=== PATIENT | female | born 1950 | race Caucasian/White ===

== ENCOUNTER → 2016-08-12 | Outpatient (CLI) | payer MEDICARE, OTHER ==
--- NOTE | 2016-08-12 09:00 | CT ---
EXAMINATION TYPE: CT abdomen pelvis wo con DATE OF EXAM: 08/12/2016 8:15 AM COMPARISON: Prior CT abdomen pelvis 23 March 2013 HISTORY: Lt sided pain near prior hernia site CT DLP: 870.4 mGycm Automated exposure control for dose reduction was used. TECHNIQUE: Helical acquisition of images from the lung bases through the pelvis. FINDINGS: Lack of intravenous contrast could compromise sensitivity LUNG BASES: No significant abnormality is appreciated. Coronary artery calcifications are present. AORTA: Infrarenal abdominal aortic ectasia 3 cm as on prior. LIVER/GB: Gallbladder is absent, liver is stable PANCREAS: No significant abnormality is seen. SPLEEN: No significant abnormality is seen. ADRENALS: No significant abnormality is seen. KIDNEYS: No significant abnormality is seen. REPRODUCTIVE ORGANS: No significant abnormality is seen. URINARY BLADDER: No significant abnormality is seen. BOWEL: Postop change noted at the rectosigmoid area. There is extensive diverticular change in the s igmoid and descending colon. Rectus muscle on the right shows atrophy, fatty replacement. FREE AIR: No Free Air is visible. ASCITES: None visible. PELVIC ADENOPATHY: None visualized. RETROPERITONEAL ADENOPATHY: No Retroperitoneal Adenopathy visible. OSSEOUS STRUCTURES: Degenerative disc and facet arthropathy changes in the visualized spine. Postop changes noted to the anterior abdominal wall to the left of midline. Small area of recurrent h ernia laterally contains fat. IMPRESSION: POSTOP CHANGES. NONCONTRAST EXAM. SMALL AREA OF RECURRENT HERNIA IN THE LEFT LOWER QUADRANT. DIVERTIC ULOSIS. INFRARENAL ABDOMINAL AORTIC ECTASIA IS STABLE.
== END | disposition home or self-care (01) ==
LOC: RADCTMAIN 07:49
PROVIDERS: ATTEND Surgery Plastic and Reconstructive Surgery
DX: K57.30 Diverticulosis of large intestine without perforation or abscess without bleeding (principal); I77.811 Abdominal aortic ectasia; K40.31 Unilateral inguinal hernia, with obstruction, without gangrene, recurrent; Z98.890 Other specified postprocedural states
CPT/HCPCS: 74176

== ENCOUNTER 2016-09-18 07:56 | Day surgery (SDC) | payer MEDICARE, OTHER ==
[2016-09-16 10:53] VITALS: BMI 33.3
[~2016-09-18 07:56] MED LIST: LACTATED RINGERS 1,000 ML IV SCH; LIDOCAINE 1% 20 ML VIAL (10MG/ML) FOR IV START INTRADERMA PRN
--- NOTE | 2016-09-18 08:01 | P.GSHP ---
History of Present Illness H&P Date: 09/18/16 CHIEF COMPLAINT: Colon screen HISTORY OF PRESENT ILLNESS: The patient is a 66-year-old female who presents for colon screen. Lower endoscopy was offered for further evaluation and management. PAST MEDICAL HISTORY: Please see list. PAST SURGICAL HISTORY: Please see list. MEDICATIONS: Please see list. ALLERGIES: Please see list. SOCIAL HISTORY: No illicit drug use FAMILY HISTORY: No reports of Crohn disease or ulcerative colitis. REVIEW OF ORGAN SYSTEMS: CONSTITUTIONAL: No reports of fevers or chills. PHYSICAL EXAM: VITAL SIGNS: Stable GENERAL: Well-developed pleasant in no acute distress. HEENT: No scleral icterus. Extraocular movements grossly intact. Moist buccal mucosa. NECK: Supple without lymphadenopathy. CHEST: Unlabored respirations. Equal bilateral excursions. CARDIOVASCULAR: Regular rate and rhythm. Distal 2+ pulses. ABDOMEN: Soft, nontender, nondistended. MUSCULOSKELETAL: No clubbing, cyanosis, or edema. ASSESSMENT: 1. Colon screen. PLAN: 1. Recommend proceeding with a lower endoscopy Past Medical History Past Medical History: Atrial Fibrillation, COPD, Hyperlipidemia, Thyroid Disorder Additional Past Medical History / Comment(s): tachycardia, HX diverticulitis, History of Any Multi-Drug Resistant Organisms: None Reported Past Surgical History: Adenoidectomy, Bowel Resection, Cholecystectomy, Hernia Repair, Tonsillectomy, Tubal Ligation Additional Past Surgical History / Comment(s): colonoscopy, BILAT CATARACTS Past Anesthesia/Blood Transfusion Reactions: No Reported Reaction Past Psychological History: No Psychological Hx Reported Smoking Status: Current some day smoker Past Alcohol Use History: None Reported Additional Past Alcohol Use History / Comment(s): QUIT SMOKING1 PPD regularly , still occ has a cigarette-ABOUT 1 PACK PER WEEK. Has smoked SINCE 1975 Past Drug Use History: None Reported - Past Family History Sister(s) Family Medical History: Pulmonary Embolus Medications and Allergies Home Medications Medication Instructions Recorded Confirmed Type Atorvastatin [Lipitor] 20 mg PO HS 03/09/14 09/16/16 History Furosemide [Lasix] 20 mg PO DAILY 03/09/14 09/16/16 History Methimazole [Tapazole] 5 mg PO DAILY 03/09/14 09/16/16 History Albuterol Nebulized [Ventolin 2.5 mg INHALATION DAILY PRN 03/15/16 09/16/16 History Nebulized] Rivaroxaban [Xarelto] 15 mg PO DAILY 03/15/16 09/16/16 History Metoprolol Tartrate [Lopressor] 37.5 mg PO BID 09/16/16 09/16/16 History Tiotropium [place] [Spiriva] 1 cap INHALATION DAILY 09/16/16 09/16/16 History Allergies Allergy/AdvReac Type Severity Reaction Status Date / Time No Known Allergies Allergy Verified 09/16/16 10:45
[2016-09-18 08:17] VITALS: RESP 16; TEMP 97.3
[2016-09-18] MEDS ORDERED: PROPOFOL 10 MG/ML 20 ML VIAL IV ONE (08:26)
[2016-09-18 09:22] VITALS: BP 100/73; PULSE 95
--- NOTE | 2016-10-07 08:43 | P.PCN ---
Date of Procedure: 09/18/16 Preoperative Diagnosis: Postoperative Diagnosis: Procedure(s) Performed: Implants: Indications for Procedure: Operative Findings: Description of Procedure: PREOPERATIVE DIAGNOSIS: Colonoscopy screening. Personal history of colon polyps, high-risk adenomas. POSTOPERATIVE DIAGNOSIS: Colonoscopy screening. Personal history of colon polyps, high-risk adenomas. Multiple tubular adenomas throughout the colon. Scattered diverticulosis. OPERATION: Colonoscopy to the ileocecal valve and appendiceal orifice. Colonoscopy with multiple hot forceps biopsies. Colonoscopy with cold biopsy forceps. SURGEON: Katia Conley MD. ANESTHESIA: MAC. INDICATIONS: The patient is a 66-year-old female who presents for colonoscopy surveillance following resection of high risk adenoma. Her last colonoscopy was approximately 2-3 years ago. Benefits and risks were described and informed consent was obtained. DESCRIPTION OF PROCEDURE: The patient had undergone Gatorade, MiraLAX and Dulcolax prep. She had been brought into the operating room and laid in the left lateral decubitus position. After adequate intravenous sedation, the rectum was examined with 2% lidocaine jelly. External hemorrhoids were encountered. The rectal tone was within normal limits. No lesions were palpated in the rectal vault. An Olympus colonoscope was advanced until the ileocecal valve and appendiceal orifice were clearly viewed. The prep was fair with visualization of the mucosal folds. The scope was removed with visualization of each mucosal fold. Scattered diverticulosis was encountered. Multiple colonic polyps were found and removed wit hot or cold biopsy forceps. No evidence of focal colitis was found. Retroflexion of the scope demonstrated grade 1 internal hemorrhoids without active bleeding or inflammation. The colon was desufflated. The patient had tolerated the procedure well. Withdrawal time was over 6 minutes. FINDINGS: Internal hemorrhoids, grade 1 External hemorrhoids, grade 2. No arteriovenous malformations. Removal of 5 polyps from the ileocecal valve and descending colon: - Cold forceps biopsy at ileocecal valve, 3 mm flat polyp, tubal adenoma. - Hot forceps biopsy x 2 at 40 cm from the anal verge, 4 mm and 3 mm polyps, tubular adenoma. - Hot forceps biopsy at 50 cm from the anal verge, 4 mm polyp, tubular adenoma No focal colitis. RECOMMENDATIONS: Given severity of tubular adenomas, recommend repeat colonoscopy 1 year. Plan - Discharge Summary New Discharge Prescriptions: No Action Furosemide [Lasix] 20 mg PO DAILY Atorvastatin [Lipitor] 20 mg PO HS Methimazole [Tapazole] 5 mg PO DAILY Rivaroxaban [Xarelto] 15 mg PO DAILY Albuterol Nebulized [Ventolin Nebulized] 2.5 mg INHALATION DAILY PRN PRN Reason: sob Tiotropium D[place] [Spiriva] 1 cap INHALATION DAILY Metoprolol Tartrate [Lopressor] 37.5 mg PO BID Discharge Medication List Atorvastatin [Lipitor] 20 mg PO HS 03/09/14 [History] Furosemide [Lasix] 20 mg PO DAILY 03/09/14 [History] Methimazole [Tapazole] 5 mg PO DAILY 03/09/14 [History] Albuterol Nebulized [Ventolin Nebulized] 2.5 mg INHALATION DAILY PRN 03/15/16 [ History] Rivaroxaban [Xarelto] 15 mg PO DAILY 03/15/16 [History] Metoprolol Tartrate [Lopressor] 37.5 mg PO BID 09/16/16 [History] Tiotropium D[place] [Spiriva] 1 cap INHALATION DAILY 09/16/16 [History] Follow up Appointment(s)/Referral(s): Katia Conley MD [STAFF PHYSICIAN] - 10/15/16 3:40 pm Patient Instructions/Handouts: *[facility] - (Anesthesia) Endoscopy Discharge Instructions, Colonoscopy (GEN), Diverticulosis (GEN), Colorectal Polyps (GEN), Diverticulosis Diet (GEN) Activity/Diet/Wound Care/Special Instructions: May start xarelto on 09/20/16. Do not start Xarelto if you see blood in your stools. Stop Xarelto if you see blood in your stools. Discharge Disposition: HOME SELF-CARE
== END 2016-09-18 09:54 | disposition home or self-care (01) ==
LOC: ORWHC2ENDO 07:56
PROVIDERS: ATTEND Surgery Plastic and Reconstructive Surgery
DX: Z12.11 Encounter for screening for malignant neoplasm of colon (principal); D12.0 Benign neoplasm of cecum; D12.2 Benign neoplasm of ascending colon; Z86.010 Personal history of colon polyps; K57.30 Diverticulosis of large intestine without perforation or abscess without bleeding; K64.1 Second degree hemorrhoids; K64.0 First degree hemorrhoids; I10 Essential (primary) hypertension; E78.5 Hyperlipidemia, unspecified; I48.91 Unspecified atrial fibrillation; F17.210 Nicotine dependence, cigarettes, uncomplicated; J44.9 Chronic obstructive pulmonary disease, unspecified; E07.9 Disorder of thyroid, unspecified; Z79.01 Long term (current) use of anticoagulants; Z79.899 Other long term (current) drug therapy
CPT/HCPCS: 88305; 45380; 45384; J2704

== ENCOUNTER → 2017-01-27 | Outpatient (CLI) | payer MEDICARE, OTHER ==
--- NOTE | 2017-01-28 09:02 | MM ---
Reason for exam: screening (asymptomatic). History: Patient is postmenopausal. Physical Findings: A clinical breast exam by your physician is recommended on an annual basis and results should be correlated with mammographic findings. MG 3D Screening Mammo W/Cad Bilateral CC and MLO view(s) were taken. The breast tissue is almost entirely fat. There are positive dermal calcifications. There is no discrete abnormality. No significant changes when compared with prior studies. ASSESSMENT: Benign, BI-RAD 2 RECOMMENDATION: Routine screening mammogram of both breasts in 1 year.
== END | disposition home or self-care (01) ==
LOC: RADMAMWWP 01-01 16:25
PROVIDERS: ATTEND Family Medicine
DX: Z12.31 Encounter for screening mammogram for malignant neoplasm of breast (principal)
CPT/HCPCS: 77063; G0202

== ENCOUNTER → 2017-11-10 | Outpatient (CLI) | payer MEDICARE, OTHER ==
[2017-11-10 15:30] LABS: HCT 36.8 % (34.0-46.0); MCH 29.8 pg (25.0-35.0); MCHC 32.5 g/dL (31.0-37.0); MCV 91.7 fL (80.0-100.0); Mean Platelet Volume 7.6; Platelet Count 225 k/uL (150-450); Poikilocytosis Slight; RBC 4.01 m/uL (3.80-5.40); RDW 15.8 % (11.5-15.5); WBC 5.8 k/uL (3.8-10.6)
== END | disposition home or self-care (01) ==
LOC: LABWHC1 14:45
PROVIDERS: ATTEND Internal Medicine Interventional Cardiology
DX: Z01.812 Encounter for preprocedural laboratory examination (principal); I42.9 Cardiomyopathy, unspecified; I48.91 Unspecified atrial fibrillation
CPT/HCPCS: 36415; 85027

== ENCOUNTER 2017-11-18 06:26 | Day surgery (SDC) | payer MEDICARE, OTHER ==
[2017-11-10 13:43] VITALS: BMI 33.4
[2017-11-18] MEDS ORDERED: NITROGLYCERIN SL TABS 0.4 MG TAB SUBLINGUAL PRN (06:34)
[2017-11-18] MEDS ORDERED: ALPRAZolam 0.5 MG TAB PO PRN (06:34)
[2017-11-18] MEDS ORDERED: ASPIRIN 325 MG TAB PO STA (06:34)
[2017-11-18] MEDS ORDERED: SODIUM CHLORIDE 0.9% 1,000 ML in EMPTY BAG 1 BAG IV ONE (06:34)
[2017-11-18] MEDS ORDERED: ALPRAZolam 0.25 MG TAB PO PRN (06:34)
[2017-11-18] MEDS ORDERED: ATORVASTATIN 80 MG TAB PO STA (06:34)
[2017-11-18 07:04] VITALS: TEMP 98.1
[2017-11-18] MEDS ORDERED: VERAPAMIL 2.5 MG/ML 2 ML AMP ONE (07:10)
[2017-11-18] MEDS ORDERED: MIDAZOLAM 2 MG/2 ML VIAL ONE (07:10)
[2017-11-18 07:28] LABS: Calcium 9.1 mg/dL (8.4-10.2)
[2017-11-18 07:36] LABS: Potassium 4.6 mmol/L (3.5-5.1)
[2017-11-18] MEDS ORDERED: MIDAZOLAM 2 MG/2 ML VIAL IV ONE (07:49)
[2017-11-18] MEDS: VERAPAMIL SYRINGE (5 MG/10 ML) INTRAARTER ONE ×2 (07:52→08:06)
[2017-11-18] MEDS ORDERED: HEPARIN SODIUM 1,000 UN/ML (10ML VL) ONE (07:53)
[2017-11-18] MEDS ORDERED: HEPARIN SODIUM 1,000 UN/ML (10ML VL) IV ONE (07:55)
[2017-11-18] MEDS ORDERED: IOPAMIDOL-370 125ML BTL INJ ONE (08:06)
[2017-11-18] MEDS ORDERED: RX INFO: IV CONTRAST WAS GIVEN 1 EACH MISC MISCELLANE PRN (08:11)
[2017-11-18] MEDS ORDERED: SODIUM CHLORIDE 0.9% 1,000 ML IV SCH (08:15)
--- NOTE | 2017-11-18 08:37 | LTR ---
November 18, 2017 Re: Kirsten Hansen Dear Alexys: Ms. Amanda Hansen was not feeling well lately. She was feeling tired and fatigued. An echocardiogram was performed and showed cardiomyopathy, which is new to her. Because of that, a heart catheterization was recommended. I did perform a heart catheterization on her and that showed only mild to moderate nonobstructive coronary artery disease. Maximized medical treatment is recommended at this point of time. I want to thank you for allowing me to participate in her care and please do not hesitate to call if you have any question or concern. Sincerely, MD SARAH Elias / EDDIE: [id number] /
--- NOTE | 2017-11-18 08:37 | CC ---
CARDIAC CATHETERIZATION REPORT DATE OF SERVICE: 11/18/2017 PERFORMING PHYSICIAN: Robert Dominguez MD. PROCEDURE PERFORMED: 1. Selective right and left coronary angiogram. 2. Left heart catheterization. INDICATION: This is a pleasant 67-year-old female patient who was diagnosed recently with cardiomyopathy. She does have history of chronic atrial fibrillation on oral anticoagulation. The previous echocardiogram showed normal LV function. A recent echocardiogram was performed after she was feeling tired and fatigued showed cardiomyopathy. The heart catheterization is to rule out any severe underlying coronary artery disease. APPROACH: Right radial artery. COMPLICATION: None. LEVEL OF SEDATION: Moderate, sedation length of 18 minutes. PROCEDURE DESCRIPTION: After obtaining an informed consent, the patient was brought to cardiac agriculture laborer. The right radial artery was cannulated using micropuncture technique, the micropuncture wire passed easily then I placed a 6-Swazi sheath in the right radial artery. Subsequently I gave the patient 2 mg of verapamil IA and 8000 units of heparin IV. I did selective right and left coronary angiogram using JR4 and JL3.5 catheters. Left heart catheterization was performed using 5-Swazi pigtail catheter. The procedure was completed without any complication. SELECTIVE CORONARY ANGIOGRAM: 1. The RCA is a large caliber vessel. It is a dominant vessel. It is angiographically normal. It distally bifurcates into PDA and PLV branches. They are angiographically normal. 2. The left main is angiographically normal. It bifurcates into the left circumflex and left anterior descending artery. 3. The left circumflex is a large caliber vessel. It is a nondominant vessel and it is angiographically normal. 4. The LAD: The proximal LAD has a lesion appeared to be in the range of 40% by the bifurcation of a medium-sized diagonal branch. The mid and distal LAD are angiographically normal. HEMODYNAMICS: The left ventricular end-diastolic pressure was 16 mmHg and no gradient was identified across the aortic valve. CONCLUSION: 1. Mild to moderate disease involving the proximal left anterior descending artery with a lesion appeared to be in the range of 40%. 2. Normal left ventricular end-diastolic pressure. 3. Nonischemic cardiomyopathy. POSTPROCEDURE MANAGEMENT: 1. Maximize medical treatment. 2. Follow up with the patient. MMODL / IJN: [id number] /
[2017-11-18 08:43] VITALS: RESP 16
[2017-11-18 15:20] VITALS: BP 105/72; PULSE 101
== END 2017-11-18 13:20 | disposition home or self-care (01) ==
LOC: CATHCVL 06:26
PROVIDERS: ATTEND Internal Medicine Interventional Cardiology
DX: I48.1 Persistent atrial fibrillation (principal); E78.5 Hyperlipidemia, unspecified; E78.00 Pure hypercholesterolemia, unspecified; I10 Essential (primary) hypertension; F17.210 Nicotine dependence, cigarettes, uncomplicated; I48.2 Chronic atrial fibrillation; I42.9 Cardiomyopathy, unspecified; Z79.01 Long term (current) use of anticoagulants; Z79.899 Other long term (current) drug therapy
CPT/HCPCS: 80048; 93456; J2250; J1644; Q9967; 93452

== ENCOUNTER → 2018-01-20 | Outpatient (CLI) | payer MEDICARE, OTHER ==
--- NOTE | 2018-01-20 15:55 | CONS ---
CONSULTATION REASON FOR CONSULTATION: Atrial fibrillation; possible OPAL. This is a 67-year-old female patient who has been having difficulties with atrial fibrillation that has been resistant to treatment. The patient has already received 4 cardioversions. She initially converts to sinus rhythm and subsequently her rhythm goes back to atrial fibrillation. She is under treatment for now, and as part of further investigation a sleep apnea evaluation was requested by her tong carrier. The patient lives alone. She does not know whether she snores or quits breathing; however, her sleep is fragmented. She goes to bed around 1 a.m. and she wakes up at 8:30 a.m. in the morning. She is drowsy and sleepy during the day and the patient takes several naps. Her weight has been stable and there has been no significant weight gain over the past 10 years. In fact, the patient has lost approximately 10 pounds. No episodes of waking up choking and gasping for air. She has occasional nocturia. She wakes up with an extremely dry mouth. She has also occasional daytime palpitations. No history of alcoholism. The patient smokes cigarettes. She sleeps on her side. PAST MEDICAL HISTORY: 1. COPD. 2. Chronic atrial fibrillation. 3. Hyperlipidemia. PAST SURGICAL HISTORY: 1. Tubal ligation. 2. Cholecystectomy. 3. Cataract surgery. 4. Tonsillectomy. DRUG ALLERGIES: NOT KNOWN. OUTPATIENT MEDICATION LIST: Outpatient medication list includes: 1. Spiriva. 2. Lisinopril. 3. Aldactone. 4. Lasix. 5. Metoprolol. 6. Xarelto. 7. Lipitor. 8. Albuterol HFA. SOCIAL HISTORY: The patient is a smoker, half pack of cigarettes per day. No history of alcoholism. No history of IV drugs. FAMILY HISTORY: Negative for sleep apnea. REVIEW OF SYSTEMS: Twelve-point review of systems was done. No history of any chest pain. No heartburn at nighttime. No restlessness in the lower extremities. No grinding of the teeth. No depression. No difficulties with concentration or memory. No sleep paralysis or cataplexy. No hallucinations. No nightmares. No other parasomnias noted. PHYSICAL EXAMINATION: BP is 91/61, pulse 109, irregular, respirations 18, temperature 97.2, saturation 97% on room air. Dillon score is 7. Height is 5 feet 3 inches, weight 195, BMI 34. Neck size is 15 inches. GENERAL APPEARANCE: Calm, comfortable. Head is atraumatic, normocephalic. NECK: Supple. Mallampati class IV. No goiter or neck masses. LUNGS: Diminished breath sounds; otherwise clear. HEART: Heart sounds are irregular. Positive S1, S2. No S3, S4. No murmurs. ABDOMEN: Soft, nontender. No organomegaly. EXTREMITIES: No edema. No cyanosis or clubbing. SKIN: Negative for any wounds or ulcerations. PSYCH: Negative for any anxiety or depression. IMPRESSION: 1. Chronic atrial fibrillation. 2. Sleep fragmentation with some degree of increased sleepiness with an Dillon score of 7. Rule out underlying obstructive sleep apnea. 3. Chronic obstructive pulmonary disease. 4. Hyperlipidemia. PLAN: This patient has chronic atrial fibrillation, and as part of further investigation a sleep apnea evaluation was requested by her tong carrier. Sleep apnea may be potentially considered a risk factor for recurrent atrial fibrillation. This patient is also being considered for cardiac ablation for atrial fibrillation, and there is data to support that sleep apnea treatment would decrease the recurrence of atrial fibrillation in patients post cardiac ablation. For all these reasons, we will proceed with a screening polysomnogram to see if there is any significant sleep breathing disorder contributing to her cardiac arrhythmias. Encourage weight loss. Implement good sleep hygiene measures. Will follow. NIVIAL / GUILLERMINAN: [id number] /
== END ==
LOC: SLEEP 14:19
PROVIDERS: ATTEND Internal Medicine Critical Care Medicine
DX: I48.91 Unspecified atrial fibrillation (principal); J44.9 Chronic obstructive pulmonary disease, unspecified; E78.5 Hyperlipidemia, unspecified; F17.210 Nicotine dependence, cigarettes, uncomplicated; Z79.899 Other long term (current) drug therapy; Z90.49 Acquired absence of other specified parts of digestive tract; Z98.890 Other specified postprocedural states; Z90.89 Acquired absence of other organs
CPT/HCPCS: 99211

== ENCOUNTER 2018-04-07 08:05 | Inpatient (IN) | payer MEDICARE, OTHER ==
[2018-04-07 09:23] VITALS: BMI 31.5
[2018-04-07] MEDS ORDERED: NALOXONE 0.4 MG/ML 1 ML VIAL IV PRN (09:24)
[2018-04-07 10:24] LABS: Basophils # (A) 0.1 k/uL (0-0.2); Basophils % (A) 1 %; Eosinophils # (A) 0.2 k/uL (0-0.7); Eosinophils % (A) 3 %; HCT 35.1 % (34.0-46.0); HGB 11.8 gm/dL (11.4-16.0); Lymphocytes # (A) 1.6 k/uL (1.0-4.8); Lymphocytes % (A) 21 %; MCH 31.9 pg (25.0-35.0); MCHC 33.6 g/dL (31.0-37.0); MCV 94.8 fL (80.0-100.0); Mean Platelet Volume 7.5; Monocytes # (A) 0.4 k/uL (0-1.0); Monocytes % (A) 5 %; Neutrophils # (A) 5.2 k/uL (1.3-7.7); Neutrophils % (A) 69 %; Platelet Count 233 k/uL (150-450); Poikilocytosis Slight; RDW 15.1 % (11.5-15.5); WBC 7.4 k/uL (3.8-10.6)
[2018-04-07] MEDS ORDERED: IPRATROPIUM 0.5 MG/2.5 ML NEBU INHALATION PRN (10:42)
[2018-04-07] MEDS ORDERED: ALBUTEROL NEBULIZED 2.5 MG/3 ML INHALATION PRN (10:42)
[2018-04-07] MEDS ORDERED: Magnesium Replacement Protocol 1 EACH MISC MISCELLANE PRN (10:55)
[2018-04-07 11:13] LABS: Calcium 9.3 mg/dL (8.4-10.2); Phosphorus 3.5 mg/dL (2.5-4.5); Potassium 4.4 mmol/L (3.5-5.1)
[2018-04-07] MEDS: MAGNESIUM OXIDE 400 MG TAB PO SCH (14:54)
[2018-04-07 15:48] LABS: T4, Free (Free Thyroxine) 1.44 ng/dL (0.78-2.19)
[2018-04-07] MEDS: IPRATROPIUM-ALBUTEROL 3 ML NEB INHALATION SCH ×2 (16:06→19:38)
[2018-04-07] MEDS ORDERED: DOFETILIDE 250 MCG CAP PO ONE (18:00)
[2018-04-07] MEDS ORDERED: DOFETILIDE 125 MCG CAP PO ONE (18:00)
[2018-04-07] MEDS ORDERED: METOPROLOL TARTRATE 50 MG TAB PO SCH ×2 (21:00)
[2018-04-07] MEDS: ATORVASTATIN 20 MG TAB PO SCH (22:32)
[2018-04-08] MEDS: IPRATROPIUM-ALBUTEROL 3 ML NEB INHALATION PRN (04:50)
[2018-04-08 05:28] LABS: Calcium 8.6 mg/dL (8.4-10.2); Potassium 4.1 mmol/L (3.5-5.1)
[2018-04-08] MEDS ORDERED: DOFETILIDE 125 MCG CAP PO ONE ×2 (06:00→18:00)
[2018-04-08] MEDS: MAGNESIUM OXIDE 400 MG TAB PO SCH (08:41)
[2018-04-08] MEDS: FUROSEMIDE 20 MG TAB PO SCH (08:44)
[2018-04-08] MEDS: SPIRONOLACTONE 25 MG TAB PO SCH (08:44)
[2018-04-08] MEDS: IPRATROPIUM-ALBUTEROL 3 ML NEB INHALATION SCH ×4 (08:44→20:08)
[2018-04-08] MEDS: RIVAROXABAN 20 MG TAB PO SCH (08:55)
[2018-04-08] MEDS: METOPROLOL TARTRATE 25 MG TAB PO SCH ×2 (08:55→21:32)
[2018-04-08] MEDS ORDERED: NON-FORMULARY DRUG (Tiotropium Bromide [Spiriva] 1 CAP) INHALATION SCH (09:00)
[2018-04-08] MEDS ORDERED: LISINOPRIL 2.5 MG TAB PO SCH ×2 (09:00→17:00)
--- NOTE | 2018-04-08 09:16 | P.PN ---
Subjective Patient remains sinus rhythm in the 50s. Her breath sounds are improved today she no rhonchi no crackles. Denies any chest discomfort no atrial fibrillation did so far she is tolerating dofetilide on 125 g we calculated her creatinine clearance and it ranges between 30 and 40 therefore we started her on dofetilide 125 g QT intervals have been stable and being less than 480 ms without any increase from baseline Blood pressure 84/40 mmHg pulse rate in the 50s afebrile Breath sounds are clear no rhonchi no crackles Heart sounds S1-S2 normal no murmurs or gallops or rub Extended is warm no edema Impression In view of low blood pressure I will stop lisinopril The dose of metoprolol reduced to 25 mg twice daily Dofetilide will continue We will proceed with A. fib ablation/cryoablation of the pulmonary veins as previously scheduled, for tomorrow She is nothing by mouth after midnight except by mouth medications Objective - Vital Signs Vital signs: Vital Signs Temp 98.1 F 04/08/18 08:00 Pulse 59 L 04/08/18 08:54 Resp 18 04/08/18 08:00 BP 94/40 04/08/18 08:00 Pulse Ox 95 04/08/18 08:00 Intake & Output 04/07/18 04/08/18 04/08/18 18:59 06:59 18:59 Intake Total 225 Output Total 160 Balance -160 225 Weight 86 kg 86 kg Intake: Oral 225 Output: Urine 160 Other: Voiding Method Toilet Toilet # Voids 2 2 - Labs CBC & Chem 7: 04/07/18 10:10 04/08/18 05:00 Labs: Abnormal Lab Results - Last 24 Hours (Table) 04/07/18 04/07/18 04/07/18 Range/Units 10:10 10:10 10:10 RBC 3.70 L (3.80-5.40) m/uL Chloride (98-107) mmol/L BUN 30 H (7-17) mg/dL Creatinine 1.51 H (0.52-1.04) mg/dL TSH 0.365 L (0.465-4.680) mIU/L 04/08/18 Range/Units 05:00 RBC (3.80-5.40) m/uL Chloride 109 H (98-107) mmol/L BUN 23 H (7-17) mg/dL Creatinine 1.21 H (0.52-1.04) mg/dL TSH (0.465-4.680) mIU/L
[2018-04-08 11:21] LABS: Hemoglobin A1C 4.5 % (4.0-6.0)
[2018-04-08 21:09] LABS: Glucose,Whole Blood 94 mg/dL (75-99)
[2018-04-08] MEDS: SODIUM CHLORIDE 0.9% 1,000 ML IV SCH (21:31)
[2018-04-08] MEDS: ATORVASTATIN 20 MG TAB PO SCH (21:32)
[2018-04-09] MEDS: IPRATROPIUM-ALBUTEROL 3 ML NEB INHALATION PRN (04:29)
[2018-04-09] MEDS ORDERED: DEXAMETHASONE SOD PHOSPHATE 10 MG/ML 1 ML VIAL IV ONE (05:00)
[2018-04-09] MEDS ORDERED: LIDOCAINE 1% 20 ML VIAL (10MG/ML) FOR IV START INTRADERMA PRN (05:00)
[2018-04-09] MEDS ORDERED: LACTATED RINGERS 1,000 ML IV SCH (05:00)
[2018-04-09] MEDS ORDERED: ONDANSETRON 4 MG/2 ML VIAL IVP ONE (05:00)
[2018-04-09] MEDS ORDERED: DOFETILIDE 125 MCG CAP PO ONE (06:00)
[2018-04-09 06:29] LABS: Magnesium 2.1 mg/dL (1.6-2.3); Potassium 4.2 mmol/L (3.5-5.1)
[2018-04-09] MEDS: RIVAROXABAN 20 MG TAB PO SCH (08:55)
[2018-04-09] MEDS: SPIRONOLACTONE 25 MG TAB PO SCH (08:55)
[2018-04-09] MEDS: FUROSEMIDE 20 MG TAB PO SCH (08:55)
[2018-04-09] MEDS: MAGNESIUM OXIDE 400 MG TAB PO SCH (08:55)
[2018-04-09] MEDS: METOPROLOL TARTRATE 25 MG TAB PO SCH ×2 (08:55→19:45)
[2018-04-09] MEDS: SODIUM CHLORIDE 0.9% 1,000 ML IV SCH (08:58)
[2018-04-09] MEDS: IPRATROPIUM-ALBUTEROL 3 ML NEB INHALATION SCH ×4 (09:40→19:10)
[2018-04-09] MEDS ORDERED: PROTAMINE SULFATE 10 MG/ML 5 ML VIAL IV ONE ×2 (12:21→15:18)
[2018-04-09] MEDS ORDERED: PROPOFOL 10 MG/ML 20 ML VIAL IV ONE (12:21)
[2018-04-09] MEDS ORDERED: ROCURONIUM BROMIDE 10 MG/ML 10 ML VIAL IV ONE (12:21)
[2018-04-09] MEDS ORDERED: fentaNYL (PF) 50 MCG/ML 2 ML AMP ONE (12:21)
[2018-04-09] MEDS ORDERED: ISOPROTERENOL 250 MCG/1.25 ML SYR IV ONE (12:21)
[2018-04-09] MEDS ORDERED: LIDOCAINE 1% INJ 10MG/ML (20 ML MDV) ONE (12:21)
[2018-04-09] MEDS ORDERED: MIDAZOLAM 2 MG/2 ML VIAL ONE (12:21)
[2018-04-09] MEDS ORDERED: HEPARIN SODIUM,PORCINE 5,000 UNIT/ML 1 ML VIAL ONE (12:21)
[2018-04-09] MEDS ORDERED: SODIUM CHLORIDE 0.9% 1,000 ML IV ONE (13:13)
[2018-04-09] MEDS ORDERED: LIDOCAINE 1% INJ 10MG/ML (20 ML MDV) SQ ONE (13:13)
[2018-04-09] MEDS ORDERED: HEPARIN SOD,PORK IN 0.45% NACL 25,000 UNIT in 0.45% NACL 1 250ML.BAG IV ONE ×2 (13:13)
[2018-04-09] MEDS ORDERED: HYDROcodone/APAP 5-325MG 1 EACH TAB PO PRN (15:19)
[2018-04-09] MEDS ORDERED: ACETAMINOPHEN TAB 325 MG TAB PO PRN (15:19)
[2018-04-09] MEDS ORDERED: IOPAMIDOL-370 100ML BTL INJ ONE (15:26)
--- NOTE | 2018-04-09 16:13 | P.HPCAR ---
History of Present Illness This is Dr. Crowell dictating an H/P on this patient The patient was interviewed and examined by me IMPRESSION / ASSESSMENT: Persistent atrial fibrillation Creatinine 1.59 potassium Suppressed TSH PLAN: Initiate dofetilide 125 g twice daily, oral magnesium, spironolactone, continue Rivaroxaban HPI Patient was admitted for evaluation and management of atrial fibrillation We will be starting dofetilide today and we'll proceed with PVI on ROS: No fever chills or rigors, no cough, phlegm or expectoration, no nausea, vomiting or diarrhea, no hematuria, dysuria, no musculoskeletal complaints, no strokes or seizures, no skin lesions. EXAMINATION: On examination blood pressure is 102/45 mmHg normal respirations Pulse rate in the 60s afebrile Breath sounds are reduced bilaterally with bilateral rhonchi the patient appears comfortable Heart sounds S1 and S2 normal no murmurs or gallop. Extended is warm no edema REVIEW OF LABS, ECG & MEDICAL DATA White count 7.4, hemoglobin 11.8, sodium 139 potassium 4.4 BUN 30 creatinine 1.5 TSH 0.365, suppressed The ECG shows sinus rhythm narrow QRS the stent QT interval of 4 460 ms Physical Exam Vitals: Vital Signs Temp Pulse Pulse Resp BP BP Pulse Ox 04/07/18 14:00 57 L 04/07/18 13:36 60 04/07/18 13:30 56 L 04/07/18 12:01 97.9 F 63 16 102/45 97 04/07/18 10:00 51 L 04/07/18 09:24 97 04/07/18 08:59 50 L 04/07/18 08:49 98 F 50 L 18 85/45 95 Intake and Output 04/07/18 04/07/18 04/07/18 06:59 14:59 22:59 Output Total 160 Balance -160 Output: Urine 160 Other: Weight 86 kg Past Medical History Past Medical History: Atrial Fibrillation, COPD, Hyperlipidemia, Thyroid Disorder Additional Past Medical History / Comment(s): tachycardia, HX diverticulitis, History of Any Multi-Drug Resistant Organisms: None Reported Past Surgical History: Adenoidectomy, Bowel Resection, Cholecystectomy, Hernia Repair, Tonsillectomy, Tubal Ligation Additional Past Surgical History / Comment(s): colonoscopy, BILAT CATARACTS Past Anesthesia/Blood Transfusion Reactions: No Reported Reaction Past Psychological History: No Psychological Hx Reported Smoking Status: Current every day smoker Past Alcohol Use History: None Reported Additional Past Alcohol Use History / Comment(s): QUIT SMOKING1 PPD regularly , still occ has a cigarette-ABOUT 1 PACK PER WEEK. Has smoked SINCE 1975 Past Drug Use History: None Reported - Past Family History Sister(s) Family Medical History: Pulmonary Embolus Physical Examination Vital Signs Temp Pulse Pulse Resp BP BP Pulse Ox 04/07/18 14:00 57 L 04/07/18 13:36 60 04/07/18 13:30 56 L 04/07/18 12:01 97.9 F 63 16 102/45 97 04/07/18 10:00 51 L 04/07/18 09:24 97 04/07/18 08:59 50 L 04/07/18 08:49 98 F 50 L 18 85/45 95 Intake and Output 04/07/18 04/07/18 04/07/18 06:59 14:59 22:59 Output Total 160 Balance -160 Output: Urine 160 Other: Weight 86 kg Results 04/07/18 10:10 04/09/18 05:41 CBC 04/07/18 Range/Units 10:10 WBC 7.4 (3.8-10.6) k/uL RBC 3.70 L (3.80-5.40) m/uL Hgb 11.8 (11.4-16.0) gm/dL Hct 35.1 (34.0-46.0) % Plt Count 233 (150-450) k/uL Comprehensive Metabolic Panel 04/07/18 Range/Units 10:10 Sodium 139 (137-145) mmol/L Potassium 4.4 (3.5-5.1) mmol/L Chloride 106 (98-107) mmol/L Carbon Dioxide 25 (22-30) mmol/L BUN 30 H (7-17) mg/dL Creatinine 1.51 H (0.52-1.04) mg/dL Glucose 93 (74-99) mg/dL Calcium 9.3 (8.4-10.2) mg/dL Current Medications Generic Name Dose Route Start Last Admin Trade Name Freq PRN Reason Stop Dose Admin Albuterol/Ipratropium 3 ml 04/07/18 16:00 Duoneb 0.5 Mg-3 Mg/3 Ml Soln INHALATION RT-QID JESSICA Albuterol/Ipratropium 3 ml 04/07/18 13:34 Duoneb 0.5 Mg-3 Mg/3 Ml Soln INHALATION RT-Q2H PRN Shortness Of Breath Or Wheezing Atorvastatin Calcium 20 mg 04/07/18 21:00 Lipitor PO HS [facility] Dofetilide 125 mcg 04/07/18 18:00 Tikosyn PO 04/07/18 18:01 ONCE ONE Furosemide 20 mg 04/08/18 09:00 Lasix PO DAILY [facility] Lisinopril 2.5 mg 04/08/18 17:00 Zestril PO DAILY@1700 [facility] Magnesium Oxide 400 mg 04/07/18 11:15 04/07/18 14:54 Mag-Ox PO 400 mg DAILY [facility] Administration Metoprolol Tartrate 50 mg 04/07/18 21:00 Lopressor PO BID [facility] Miscellaneous Information 1 each 04/07/18 10:55 Magnesium Per Protocol MISCELLANE DAILY PRN Per Protocol Protocol Naloxone HCl 0.2 mg 04/07/18 09:24 Narcan IV Q2M PRN Opioid Reversal Rivaroxaban 20 mg 04/08/18 09:00 Xarelto PO DAILY [facility] Spironolactone 25 mg 04/08/18 09:00 Aldactone PO DAILY [facility] Intake and Output 04/07/18 04/07/18 04/07/18 06:59 14:59 22:59 Output Total 160 Balance -160 Output: Urine 160 Other: Weight 86 kg Patient Weight 04/08/18 06:59 Weight 86 kg 04/07/18 10:10 04/07/18 10:10
[2018-04-09] MEDS ORDERED: HYDROmorphone 1 MG/ML 1 ML SYRINGE IVP ONE (16:14)
--- NOTE | 2018-04-09 16:18 | P.PCN ---
Preoperative Diagnosis: Diagnosis Atrial fibrillation, symptomatic, refractory to therapy Dofetilide also initiated on this admission Result Successful pulmonary vein isolation of all veins using cryo-ablation Complete entrance block in all 4 veins confirmed No evidence for phrenic nerve injury Esophageal deflection NO Electrical cardioversion with a synchronized shock across the chest NO Procedure details Patient was brought to the EP lab in a fasting state. Written informed consent was obtained prior to the procedure. Procedure performed under general anesthesia After initial muscle relaxant use, muscle relaxants were not given thereafter in order to assess phrenic nerve during procedure Patient prepped and draped as per protocol Full cryo-set up with standard preparation of the cryoablation tools done Femoral Venous access obtained on the right and left groins Venous and arterial Sheaths placed Diagnostic catheters for the high right atrium, phrenic nerve stimulation and pacing, His bundle, RV and coronary sinus placed Intracardiac echo catheter placed Long sheath placed in the right atrium Left and right transseptal catheterization performed under intracardiac echo guidance Intravenous heparin with aCT above 300 Later, catheter positioning and balloon positioning in the left atrium, under intracardiac echo guidance Comprehensive diagnostic EP study Drug infusion Coronary sinus pacing and recording Baseline measurements Sinus cycle length one 91 ms, irritable 131 ms, QRS 99 ms and QT interval 480 ms AH 71 and HV 35 Sinus recovery times at the bases cycle length of 600 ms was 1690 ms. Corrected sinus node recovery time was prolonged AV node Wenckebach block 330 ms VA Wenckebach block 500 ms Isuprel infused wide open no inducible atrial fibrillation Atrial pacing performed from the high right atrium and the coronary sinus RV pacing Transseptal catheterization performed RA pressure 10/4/7 LA pressure 36/13/25 Transseptal catheterization performed with standard sheath. The cryoablation sheath was then placed with an over the wire exchange without any acute complications. All 4 pulmonary veins were isolated in the following sequence: Left superior followed by left inferior followed by right superior followed by right inferior The cryo-ablation balloon was placed at the os of each vein 1.5 mL of IV dye was injected to confirm an occluded vein Goal during cryoablation was to achieve complete occlusion of the pulmonary vein , achieve -30C at 30 seconds and achieve -40C at 60 seconds and a time to affect of less than 60-90 seconds, . If not the balloon was repositioned to obtain this result After completion of Cryoblation with durations from 180-240 seconds, entrance block was confirmed with the Attain circular catheter in a roving fashion around the antrum of the pulmonary veins Phrenic nerve pacing was performed from the SVC, right innominate vein area and diaphragm voltage was monitored. Diaphragmatic contractions were also monitored manually for strength of contraction. Parameter goals for each cryo freeze -30C by 30 seconds -40C by 60 seconds Mediated between minus 40-55C Thaw time greater than 10 seconds Balloon visualized by intracardiac echo to ensure that the proximal one third was within the left atrium/antrum The esophagus was intubated. Esophageal Temperature monitoring with a CIRCA catheter formed. Esophageal deflection for hypothermia of the esophagus below 32C Patient had a left common vein. cryoablation lesions applied to the common os area after isolation of the pulmonary veins individually Left superior pulmonary vein Single three-minute cryoablation, complete isolation Left inferior pulmonary vein Single three-minute cryoablation complete isolation Right superior pulmonary vein, during phrenic nerve pacing Single four-minute cryoablation with complete entrance block Right inferior pulmonary vein, during phrenic nerve pacing Three-minute followed by a 2 minute cryoablation with complete isolation At the end of the procedure the Achieve catheter was once again used to check for entrance block Phrenic nerve stimulation was performed to confirm diaphragmatic stimulation the end of the procedure Cine fluoroscopy was performed at the very end of the procedure to confirm movement of both diaphragms with inspiration and expiration At the end of the procedure the patient was extubated Heparin was reversed Venous sheaths were removed and hemostasis assured Procedures performed (PVI - CRYO Ablation) Invasive hemodynamic monitoring while general anesthesia, right femoral arterial line for monitoring and sampling Comprehensive diagnostic EP study CS pacing and recording Left and right transseptal catheterization Catheter the mapping of the tachycardia (NOT 3D mapping) Intracardiac echocardiography Pulmonary vein isolation with transseptal and comprehensive EPS, 70042 Drug Infusion [id number]
--- NOTE | 2018-04-09 16:25 | P.PN ---
Subjective Patient doing well this morning. Received dofetilide 125 g at 6 AM and a follow-up 12-lead ECG at 9 AM showed the absolute QT interval of 480 ms Breath sounds have improved no rhonchi no crackles this morning Blood pressure 125/46. His mercury pulse rate in the 50s afebrile 97.3F Heart sounds S1 and S2 are normal no murmurs or gallops no rub Lungs are clear reduce air entry bilaterally but no rhonchi Abdomen soft nontender Extremities warm no edema Impression Persistent atrial fibrillation currently on dofetilide 125 g twice daily and absolute QT interval today's 480 ms Electrolytes were reviewed and are normal Potassium 4.2, BUN 17 creatinine 1.07 TSH is minimally suppressed at 0.365 Plan Proceed with cryoablation of the pulmonary veins Continue dofetilide 125 g twice daily Continue anticoagulation Objective - Vital Signs Vital signs: Vital Signs Temp 97.3 F L 04/09/18 11:32 Pulse 52 L 04/09/18 11:32 Resp 16 04/09/18 11:32 BP 125/46 04/09/18 11:32 Pulse Ox 95 04/09/18 11:32 Intake & Output 04/08/18 04/09/18 04/09/18 18:59 06:59 18:59 Intake Total 465 Balance 465 Weight 86 kg 86.9 kg Intake: IV 425 Intake, IV Titration 40 Amount Lactated Ringers 1,000 ml 20 @ 20 mls/hr IV .Q24H JESSICA Rx#:[id number] Sodium Chloride 0.9% 1, 20 000 ml @ 20 mls/hr IV . Q24H JESSICA Rx#:[id number] Other: Voiding Method Toilet Toilet # Voids 2 2 - Labs CBC & Chem 7: 04/07/18 10:10 04/09/18 05:41 Labs: Abnormal Lab Results - Last 24 Hours (Table) 04/09/18 Range/Units 05:41 Chloride 109 H (98-107) mmol/L Creatinine 1.07 H (0.52-1.04) mg/dL Glucose 102 H (74-99) mg/dL
[2018-04-09] MEDS: ACETAMINOPHEN IV (For NPO) 1,000 MG in EMPTY BAG 1 BAG IVPB ONE ×2 (16:45→17:00)
[2018-04-09] MEDS: DOFETILIDE 125 MCG CAP PO SCH (18:00)
[2018-04-09] MEDS: ATORVASTATIN 20 MG TAB PO SCH (22:24)
[2018-04-10] MEDS: IPRATROPIUM-ALBUTEROL 3 ML NEB INHALATION PRN ×2 (00:19→04:52)
[2018-04-10] MEDS: DOFETILIDE 125 MCG CAP PO SCH ×2 (05:55→17:52)
[2018-04-10] MEDS: IPRATROPIUM-ALBUTEROL 3 ML NEB INHALATION SCH ×3 (07:02→15:31)
[2018-04-10 07:10] LABS: Calcium 8.8 mg/dL (8.4-10.2)
[2018-04-10] MEDS: FUROSEMIDE 20 MG TAB PO SCH (08:40)
[2018-04-10] MEDS: METOPROLOL TARTRATE 25 MG TAB PO SCH (08:41)
[2018-04-10] MEDS: RIVAROXABAN 20 MG TAB PO SCH (08:41)
[2018-04-10] MEDS: MAGNESIUM OXIDE 400 MG TAB PO SCH (08:41)
[2018-04-10] MEDS: SPIRONOLACTONE 25 MG TAB PO SCH (08:41)
[2018-04-10] MEDS: COLCHICINE 0.6 MG EACH PO SCH ×2 (10:25→17:51)
[2018-04-10 11:29] VITALS: RESP 18; TEMP 97.3
--- NOTE | 2018-04-10 11:55 | P.DS ---
Providers Date of admission: 04/07/18 08:05 Attending physician: Gonsalo Crowell Primary care physician: Perry Reardon Plan - Discharge Summary Discharge Rx Participant: No New Discharge Prescriptions: New Dofetilide [Tikosyn] 125 mcg PO Q12HR #180 cap Colchicine 0.6 mg PO BID #6 capsule Magnesium Oxide [Mag-Ox] 400 mg PO DAILY #90 tablet No Action Furosemide [Lasix] 20 mg PO DAILY Atorvastatin [Lipitor] 20 mg PO HS Albuterol Nebulized [Ventolin Nebulized] 2.5 mg INHALATION RT-Q4H PRN PRN Reason: Shortness Of Breath Tiotropium Brave [Spiriva] 1 cap INHALATION RT-DAILY Omeprazole [PriLOSEC] 20 mg PO AC-[facility] Rivaroxaban [Xarelto] 20 mg PO DAILY Lisinopril [Zestril] 2.5 mg PO DAILY Spironolactone [Aldactone] 25 mg PO DAILY Metoprolol Tartrate [Lopressor] 50 mg PO BID Ipratropium Nebulized [Atrovent Nebulized 0.2 MG/ML] 0.5 mg INHALATION RT- Q4H PRN PRN Reason: Shortness Of Breath Discharge Medication List Atorvastatin [Lipitor] 20 mg PO HS 03/09/14 [History] Furosemide [Lasix] 20 mg PO DAILY 03/09/14 [History] Albuterol Nebulized [Ventolin Nebulized] 2.5 mg INHALATION RT-Q4H PRN 03/15/16 [ History] Tiotropium Brave [Spiriva] 1 cap INHALATION RT-DAILY 09/16/16 [History] Ipratropium Nebulized [Atrovent Nebulized 0.2 MG/ML] 0.5 mg INHALATION RT-Q4H PRN 04/07/18 [History] Lisinopril [Zestril] 2.5 mg PO DAILY 04/07/18 [History] Metoprolol Tartrate [Lopressor] 50 mg PO BID 04/07/18 [History] Omeprazole [PriLOSEC] 20 mg PO AC-BRKFST 04/07/18 [History] Rivaroxaban [Xarelto] 20 mg PO DAILY 04/07/18 [History] Spironolactone [Aldactone] 25 mg PO DAILY 04/07/18 [History] Colchicine 0.6 mg PO BID #6 capsule 04/10/18 [Rx] Dofetilide [Tikosyn] 125 mcg PO Q12HR #180 cap 04/10/18 [Rx] Magnesium Oxide [Mag-Ox] 400 mg PO DAILY #90 tablet 04/10/18 [Rx] Follow up Appointment(s)/Referral(s): [facility] [Provider Group] - 04/13/18 1:00 pm (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
[2018-04-10 16:04] VITALS: BP 123/61; PULSE 87
[2018-04-10] MEDS ORDERED: METOPROLOL TARTRATE 50 MG TAB PO SCH (21:00)
== END 2018-04-10 18:12 | disposition home or self-care (01) | DRG 274 ==
LOC: 2SICU 08:05 → 3SCARD 04-09 08:06
PROVIDERS: ADMIT Internal Medicine Clinical Cardiac Electrophysiology; ATTEND Internal Medicine Clinical Cardiac Electrophysiology
PROC: 4A0234Z Measurement of Cardiac Electrical Activity, Percutaneous Approach (ICD-10-PCS; principal; 2018-04-09 12:00)
PROC: 4A023FZ Measurement of Cardiac Rhythm, Percutaneous Approach (ICD-10-PCS; principal; 2018-04-09 12:00)
PROC: 02K83ZZ Map Conduction Mechanism, Percutaneous Approach (ICD-10-PCS; principal; 2018-04-09 12:00)
PROC: 02583ZZ Destruction of Conduction Mechanism, Percutaneous Approach (ICD-10-PCS; principal; 2018-04-09 12:00)
DX: I48.1 Persistent atrial fibrillation (principal); E78.5 Hyperlipidemia, unspecified; F17.200 Nicotine dependence, unspecified, uncomplicated; J44.9 Chronic obstructive pulmonary disease, unspecified; Z79.01 Long term (current) use of anticoagulants
CPT/HCPCS: 80048; 83036; 83735; 84100; 84439; 84443; 85025; 85347; 93609; 93623; 93656; 93662; 94640; 94760

== ENCOUNTER → 2018-05-18 | Outpatient (CLI) | payer MEDICARE, OTHER ==
--- NOTE | 2018-05-20 09:48 | MM ---
Reason for exam: screening (asymptomatic). Last mammogram was performed 1 year and 4 months ago. History: Patient is postmenopausal. Physical Findings: A clinical breast exam by your physician is recommended on an annual basis and results should be correlated with mammographic findings. MG 3D Screening Mammo W/Cad Bilateral CC and MLO view(s) were taken. Prior study comparison: January 27, 2017, bilateral MG 3d screening mammo w/cad. There are scattered fibroglandular densities. No significant changes when compared with prior studies. ASSESSMENT: Negative, BI-RAD 1 RECOMMENDATION: Routine screening mammogram of both breasts in 1 year.
== END ==
LOC: RADMAMWWP 14:37
PROVIDERS: ATTEND Family Medicine
DX: Z12.31 Encounter for screening mammogram for malignant neoplasm of breast (principal)
CPT/HCPCS: 77063; 77067

== ENCOUNTER 2018-09-23 07:22 | Day surgery (SDC) | payer MEDICARE, OTHER ==
[2018-09-21 10:06] VITALS: BMI 33.3
--- NOTE | 2018-09-22 22:13 | P.GSHP ---
History of Present Illness H&P Date: 09/23/18 CHIEF COMPLAINT: Colon screen HISTORY OF PRESENT ILLNESS: The patient is a 68-year-old female who presents for colon screen. Lower endoscopy was offered for further evaluation and management. PAST MEDICAL HISTORY: Please see list. PAST SURGICAL HISTORY: Please see list. MEDICATIONS: Please see list. ALLERGIES: Please see list. SOCIAL HISTORY: No illicit drug use FAMILY HISTORY: No reports of Crohn disease or ulcerative colitis. REVIEW OF ORGAN SYSTEMS: CONSTITUTIONAL: No reports of fevers or chills. PHYSICAL EXAM: VITAL SIGNS: Stable GENERAL: Well-developed pleasant in no acute distress. HEENT: No scleral icterus. Extraocular movements grossly intact. Moist buccal mucosa. NECK: Supple without lymphadenopathy. CHEST: Unlabored respirations. Equal bilateral excursions. CARDIOVASCULAR: Regular rate and rhythm. Distal 2+ pulses. ABDOMEN: Soft, nontender, nondistended. MUSCULOSKELETAL: No clubbing, cyanosis, or edema. ASSESSMENT: 1. Colon screen. PLAN: 1. Recommend proceeding with a lower endoscopy Past Medical History Past Medical History: Atrial Fibrillation, COPD, Hyperlipidemia, Hypertension, Thyroid Disorder Additional Past Medical History / Comment(s): tachycardia, HX diverticulitis, History of Any Multi-Drug Resistant Organisms: None Reported Past Surgical History: Adenoidectomy, Bowel Resection, Cardiac Ablation, Cholecystectomy, Hernia Repair, Tonsillectomy, Tubal Ligation Additional Past Surgical History / Comment(s): colonoscopy, BILAT CATARACTS Past Anesthesia/Blood Transfusion Reactions: No Reported Reaction Smoking Status: Former smoker - Past Family History Sister(s) Family Medical History: Cancer, Pulmonary Embolus Additional Family Medical History / Comment(s): tongue cancer Medications and Allergies Home Medications Medication Instructions Recorded Confirmed Type Atorvastatin [Lipitor] 20 mg PO HS 03/09/14 09/21/18 History Furosemide [Lasix] 20 mg PO DAILY 03/09/14 09/21/18 History Albuterol Nebulized [Ventolin 2.5 mg INHALATION RT-Q4H PRN 03/15/16 09/21/18 History Nebulized] Tiotropium [place]ill [Spiriva] 1 cap INHALATION RT-DAILY 09/16/16 09/21/18 History Ipratropium Nebulized [Atrovent 0.5 mg INHALATION RT-Q4H PRN 04/07/18 09/21/18 History Nebulized 0.2 MG/ML] Metoprolol Tartrate [Lopressor] 50 mg PO BID 04/07/18 09/21/18 History Rivaroxaban [Xarelto] 20 mg PO DAILY 04/07/18 09/21/18 History Spironolactone [Aldactone] 25 mg PO DAILY 04/07/18 09/21/18 History Dofetilide [Tikosyn] 125 mcg PO Q12HR #180 cap 04/10/18 09/21/18 Rx Calcitriol 0.25 mcg PO TU 09/21/18 09/21/18 History Ergocalciferol (Vitamin D2) 50,000 unit PO MO 09/21/18 09/21/18 History [Vitamin D2] Famotidine [Pepcid] 20 mg PO BID 09/21/18 09/21/18 History Allergies Allergy/AdvReac Type Severity Reaction Status Date / Time No Known Allergies Allergy Verified 09/21/18 09:51
[2018-09-23 07:50] VITALS: TEMP 97.7
[2018-09-23] MEDS ORDERED: PROPOFOL 10 MG/ML 20 ML VIAL IV ONE (08:37)
[2018-09-23] MEDS ORDERED: LIDOCAINE 1% INJ 10MG/ML (20 ML MDV) ONE (08:37)
--- NOTE | 2018-09-23 08:54 | P.PCN ---
Date of Procedure: 09/23/18 Description of Procedure: PREOPERATIVE DIAGNOSIS: Personal history of malignant colon polyp Family history of malignant colon polyp History of sigmoid colon resection Colonoscopy surveillance POSTOPERATIVE DIAGNOSIS: Personal history of malignant colon polyp Family history of malignant colon polyp History of sigmoid colon resection Colonoscopy surveillance Diverticulosis, scattered. OPERATION: Colonoscopy to the ileocecal valve and appendiceal orifice. SURGEON: Katia Conley MD. ANESTHESIA: MAC. INDICATIONS: The patient is a 68-year-old female who presents for colonoscopy surveillance secondary to malignant colon polyp with sigmoid colon resection. Last colonoscopy 1 year ago. Benefits and risks were described and informed consent was obtained. DESCRIPTION OF PROCEDURE: The patient had undergone Suprep. He had been brought into the operating room and laid in the left lateral decubitus position. After adequate intravenous sedation, the rectum was examined with 2% lidocaine jelly. External hemorrhoids were encountered. The rectal tone was within normal limits. No lesions were pal pated in the rectal vault. An Olympus colonoscope was advanced until the ileocecal valve and appendiceal orifice were clearly viewed. The prep was excellent with clear visualization of the mucosal folds. The scope was removed with visualization of each mucosal fold. Scattered diverticulosis was encountered. No colonic polyps were found. No evidence of focal colitis was found. Retroflexion of the scope demonstrated grade 1 internal hemorrhoids without active bleeding or inflammation. The colon was desufflated. The patient had tolerated the procedure well. Withdrawal time was over 6 minutes. FINDINGS: Aronchick preparation quality scale 1 (1-5) Internal hemorrhoids, grade 1 External prolapsed hemorrhoids. No arteriovenous malformations. No adenomatous polyps. No focal colitis. RECOMMENDATIONS: Lower endoscopy in 5 years, 2023 Plan - Discharge Summary Discharge Rx Participant: No New Discharge Prescriptions: No Action Furosemide [Lasix] 20 mg PO DAILY Atorvastatin [Lipitor] 20 mg PO HS Albuterol Nebulized [Ventolin Nebulized] 2.5 mg INHALATION RT-Q4H PRN PRN Reason: Shortness Of Breath Tiotropium [place] [Spiriva] 1 cap INHALATION RT-DAILY Rivaroxaban [Xarelto] 20 mg PO DAILY Spironolactone [Aldactone] 25 mg PO DAILY Metoprolol Tartrate [Lopressor] 50 mg PO BID Ipratropium Nebulized [Atrovent Nebulized 0.2 MG/ML] 0.5 mg INHALATION RT-Q4H PRN PRN Reason: Shortness Of Breath Dofetilide [Tikosyn] 125 mcg PO Q12HR #180 cap Ergocalciferol (Vitamin D2) [Vitamin D2] 50,000 unit PO MO Calcitriol 0.25 mcg PO TU Famotidine [Pepcid] 20 mg PO BID Discharge Medication List Atorvastatin [Lipitor] 20 mg PO HS 03/09/14 [History] Furosemide [Lasix] 20 mg PO DAILY 03/09/14 [History] Albuterol Nebulized [Ventolin Nebulized] 2.5 mg INHALATION RT-Q4H PRN 03/15/16 [History] Tiotropium [place] [Spiriva] 1 cap INHALATION RT-DAILY 09/16/16 [History] Ipratropium Nebulized [Atrovent Nebulized 0.2 MG/ML] 0.5 mg INHALATION RT-Q4H PRN 04/07/18 [History] Metoprolol Tartrate [Lopressor] 50 mg PO BID 04/07/18 [History] Rivaroxaban [Xarelto] 20 mg PO DAILY 04/07/18 [History] Spironolactone [Aldactone] 25 mg PO DAILY 04/07/18 [History] Dofetilide [Tikosyn] 125 mcg PO Q12HR #180 cap 04/10/18 [Rx] Calcitriol 0.25 mcg PO TU 09/21/18 [History] Ergocalciferol (Vitamin D2) [Vitamin D2] 50,000 unit PO MO 09/21/18 [History] Famotidine [Pepcid] 20 mg PO BID 09/21/18 [History] Follow up Appointment(s)/Referral(s): Katia Conley MD [STAFF PHYSICIAN] - As Needed Patient Instructions/Handouts: Diverticulosis (ED), Diverticulitis Diet (GEN) Activity/Diet/Wound Care/Special Instructions: Repeat colonoscopy in 5 years, 2023 Discharge Disposition: HOME SELF-CARE
[2018-09-23 09:22] VITALS: BP 107/67; PULSE 78; RESP 18
== END 2018-09-23 09:29 | disposition home or self-care (01) ==
LOC: ORWHC2ENDO 07:22
PROVIDERS: ATTEND Surgery Plastic and Reconstructive Surgery
DX: Z12.11 Encounter for screening for malignant neoplasm of colon (principal); Z85.038 Personal history of other malignant neoplasm of large intestine; Z86.010 Personal history of colon polyps; Z80.0 Family history of malignant neoplasm of digestive organs; Z83.71 Family history of colonic polyps; I48.91 Unspecified atrial fibrillation; J44.9 Chronic obstructive pulmonary disease, unspecified; E78.5 Hyperlipidemia, unspecified; I10 Essential (primary) hypertension; Z79.01 Long term (current) use of anticoagulants; Z79.899 Other long term (current) drug therapy
CPT/HCPCS: J2001; J2704; G0105; 45378

== ENCOUNTER → 2018-10-23 | Day surgery (SDC) | payer MEDICARE, OTHER ==
[2018-10-22 10:24] VITALS: BMI 31.9
[~2018-10-23] MED LIST changes: -LIDOCAINE 1% 20 ML VIAL (10MG/ML) FOR IV START INTRADERMA PRN; +SODIUM CHLORIDE 0.9% 1,000 ML IV SCH
[2018-10-23 10:30] LABS: Calcium 9.1 mg/dL (8.4-10.2); Magnesium 1.9 mg/dL (1.6-2.3); Potassium 4.2 mmol/L (3.5-5.1)
--- NOTE | 2018-10-23 12:48 | P.PN ---
Subjective Diagnosis Symptomatic atrial fibrillation, persistent, status post cryoablation of the pulmonary veins COPD Creatinine 1.21 Previously creatinine was 1.21, 1.07, 1.05 and once again today 1.21 Magnesium 1.9 On dofetilide 125 g twice daily Breakthrough episodes of atrial tachycardia with a short cycle length of about 200 ms Procedure Procedure canceled as she was in sinus rhythm Twelve-lead ECG shows sinus rhythm normal MA narrow QRS incomplete right bundle branch block with an absolute QT interval between 500-520 ms on 125 g twice daily of dofetilide Mild increase in creatinine On examination She looks comfortable heart rates are in the 50s Breath sounds are reduced bilaterally no rhonchi no crackles Heart sounds are regular no murmurs Abdomen soft Extremities are warm Vitals are stable Plan Reduce dofetilide to 125 g Follow-up with me at the end of the month Repeat 12-lead ECG that they If QT interval is still prolonged then we'll stop dofetilide completely Continue other medications and anticoagulation line Discussion with her regarding future options which could include A. fib ablations versus a Bi V pacemaker/AV node ablation strategy Objective - Vital Signs Vital signs: Intake & Output 10/22/18 10/23/18 10/23/18 18:59 06:59 18:59 Weight 87.09 kg - Labs CBC & Chem 7: 10/23/18 10:00 Labs: Abnormal Lab Results - Last 24 Hours (Table) 10/23/18 Range/Units 10:00 Creatinine 1.21 H (0.52-1.04) mg/dL
== END | disposition home or self-care (01) ==
LOC: CATHEP 08:45
PROVIDERS: ATTEND Internal Medicine Clinical Cardiac Electrophysiology
DX: I48.1 Persistent atrial fibrillation (principal); I45.10 Unspecified right bundle-branch block; I47.1 Supraventricular tachycardia; J44.9 Chronic obstructive pulmonary disease, unspecified; Z53.8 Procedure and treatment not carried out for other reasons; I25.10 Atherosclerotic heart disease of native coronary artery without angina pectoris; I10 Essential (primary) hypertension; E78.5 Hyperlipidemia, unspecified; I42.9 Cardiomyopathy, unspecified; Z87.891 Personal history of nicotine dependence; Z79.899 Other long term (current) drug therapy; Z79.01 Long term (current) use of anticoagulants; Z79.51 Long term (current) use of inhaled steroids
CPT/HCPCS: 80048; 83735

== ENCOUNTER 2018-12-10 10:53 | Day surgery (SDC) | payer MEDICARE, OTHER ==
[2018-12-02 08:54] VITALS: BMI 31.9
[~2018-12-10 10:53] MED LIST changes: -LACTATED RINGERS 1,000 ML IV SCH; -SODIUM CHLORIDE 0.9% 1,000 ML IV SCH; +ceFAZolin 1,000 MG in SODIUM CHLORIDE 0.9% IRRIGATIO 250 ML IRRIGATION ONE
[2018-12-10] MEDS ORDERED: LIDOCAINE 1% INJ 10MG/ML (20 ML MDV) ONE ×3 (12:12→12:48)
[2018-12-10] MEDS ORDERED: SODIUM CHLORIDE 0.9% 500 ML 500 ML IV ONE ×2 (12:45→13:14)
[2018-12-10] MEDS ORDERED: SODIUM CHLORIDE 0.9% 250 ML IV ONE (12:45)
[2018-12-10] MEDS ORDERED: PROPOFOL 10 MG/ML 20 ML VIAL IV ONE (12:48)
[2018-12-10] MEDS ORDERED: fentaNYL (PF) 50 MCG/ML 2 ML AMP ONE (12:48)
[2018-12-10] MEDS ORDERED: MIDAZOLAM 2 MG/2 ML VIAL ONE (12:48)
[2018-12-10] MEDS ORDERED: IOPAMIDOL-250 50ML BTL IV ONE (13:10)
[2018-12-10] MEDS ORDERED: LIDOCAINE 1% INJ 10MG/ML (20 ML MDV) SQ ONE (13:29)
[2018-12-10] MEDS ORDERED: ACETAMINOPHEN TAB 325 MG TAB PO PRN (14:54)
[2018-12-10] MEDS ORDERED: IPRATROPIUM 0.5 MG/2.5 ML NEBU INHALATION PRN (14:57)
[2018-12-10] MEDS ORDERED: ACETAMINOPHEN IV (For NPO) 1,000 MG in EMPTY BAG 1 BAG IVPB ONE (16:00)
[2018-12-10] MEDS: IPRATROPIUM-ALBUTEROL 3 ML NEB INHALATION PRN ×2 (16:10→20:20)
[2018-12-10] MEDS: SODIUM CHLORIDE 0.9% 1,000 ML IV SCH ×2 (17:22→17:23)
[2018-12-10] MEDS: LACTATED RINGERS 1,000 ML IV SCH (17:22)
[2018-12-10] MEDS ORDERED: LORazepam 0.5 MG TAB PO PRN (17:26)
[2018-12-10] MEDS ORDERED: ATORVASTATIN 20 MG TAB PO SCH (21:00)
[2018-12-10] MEDS: FAMOTIDINE 20 MG TAB PO SCH (21:40)
[2018-12-10] MEDS: METOPROLOL TARTRATE 25 MG TAB PO SCH (21:40)
[2018-12-11] MEDS: SODIUM CHLORIDE 0.9% 1,000 ML IV SCH ×2 (00:09→00:10)
[2018-12-11] MEDS: LACTATED RINGERS 1,000 ML IV SCH (00:10)
[2018-12-11] MEDS: IPRATROPIUM-ALBUTEROL 3 ML NEB INHALATION PRN ×3 (01:07→11:40)
[2018-12-11] MEDS: IPRATROPIUM 0.5 MG/2.5 ML NEBU INHALATION SCH ×3 (07:30→15:24)
--- NOTE | 2018-12-11 07:39 | XR ---
EXAMINATION TYPE: XR chest 2V DATE OF EXAM: 12/11/2018 COMPARISON: 08/21/2012 HISTORY: Lead placement check TECHNIQUE: Frontal and lateral views of the chest are obtained. FINDINGS: There is a 3-lead left-sided cardiac defibrillator. There are 2 ventricular leads and 1 si nonodal lead. These appear appropriate, frontal and lateral views. Trace right pleural effusion is pr esent as well as minimal bibasilar atelectasis. Pulmonary hyperinflation is indicative of underlying COPD. Moderate degenerative changes of the spine. Cardiomediastinal silhouette is upper limits of nor mal. Diffuse osseous demineralization is seen. Surgical coils of the abdomen on the lateral view are likely from prior hernia repair. IMPRESSION: 3-lead left-sided cardiac defibrillator in place as detailed above. Trace right pleural effusion and minimal bibasilar atelectasis are seen.
--- NOTE | 2018-12-11 08:34 | PCN ---
PROCEDURE NOTE This is a 68-year-old female who has persistent atrial fibrillation with RVR and having frequent breakthrough episodes on dofetilide. In addition, she has sick sinus syndrome with heart rates dipping down into the 40s, permanent pacemaker was advised. Since the plan and the AV node ablation in the future, a biventricular pacemaker was recommended since she would be pacing 100% in the ventricles. Patient was brought to the EP Lab in a fasting semi-sedated state. Written informed consent was obtained prior to the procedure. The left shoulder area was prepped and draped as per protocol. 1% lidocaine was used for local anesthesia. A 4 cm incision was made parallel to the deltopectoral groove, about 1.5 cm medial to it. The incision was carried down to the level of the pectoralis muscle. A subfascial pocket was made. Hemostasis was assured. The left axillary vein was accessed at 3 separate points and via appropriately-sized introducer sheaths, three leads were positioned in the right heart. The atrial lead was a Medtronic model #5076, serial number study, 52 cm in length and serial number # [id number]. This was screwed in the right atrial appendage. The P waves were 5.6 mV, pacing impedance 974 ohms, pacing threshold 1.2 V at 0.5 milliseconds 10 V test is negative. The RV lead was a Medtronic model #5076 58 cm in length, serial number [id number]. This was positioned in the RV apex and screwed in. R-wave 6.5 mV, pacing impedance 1062 ohms and pacing threshold 0.6 V at 0.5 milliseconds. Current of injury protocol was done current of injury protocol was followed. The third lead was a Medtronic model ##3830, that was screwed in the HIS bundle area for physiologic septal pacing. The patient had an incomplete right bundle branch block morphology QRS at baseline, but with pacing at the His bundle, there was narrowing of the QRS and normal narrowing and normalization of the QRS. Selective pacing was finally noted from 5 V down to 1 V. At 1 V. there was loss of selective His bundle pacing with RV capture. Complete loss of capture was noted 0.5 V at 1 millisecond. All 3 leads were secured to the underlying pectoralis fascia using 2 nonabsorbable sutures. After removing the sheaths, leads, and hemostasis was assured. The leads were connected to the new generator and brackets Liv CRTP MRI and leads and generator were then placed a subfascial pocket. The wound was closed in 3 layers and dressed per protocol. RESULT: 1. Successful biventricular pacemaker generator implant for management of bradycardia and future ventricular pacing following AV node ablation which is to be planned in the future. 2. Patient tolerated the procedure well without any acute complications. 3. Procedure #2, left upper extremity venography. This was performed prior to prepping the left pectoral area. For the procedure, a 50 mL dye was injected in the left arm and fluoroscopy revealed a patent left axillary, left subclavian and innominate system. PLAN: Continue current medications. Restart Xarelto and continue dofetilide once daily and proceed with AV node ablation if she has frequent breakthrough episodes despite dofetilide. Breakthrough episodes of atrial fibrillation with RVR, symptomatic, despite dofetilide. MMODL / IJN: [id number] /
--- NOTE | 2018-12-11 08:40 | LTR ---
DATE OF SERVICE: 12/10/2018 RE: Kirsten Hansen Dear Perry; I had the pleasure of seeing Kirsten Hansen, date of 1950 in electrophysiology followup. As you know, Kirsten has atrial fibrillation which is quite symptomatic. She is on dofetilide, but because of her QT interval prolongation, we had reduced the dose of dofetilide to 125 mcg once daily. Since she was quite bradycardic, a biventricular pacemaker was implanted today successfully. She will continue all current medications including Xarelto and follow up with you and Dr. Dominguez as before. Thank you for entrusting me with the care of your patient. Warm regards. Sincerely, MD SARAH Dixon / EDDIE: [id number] /
[2018-12-11] MEDS ORDERED: DOFETILIDE 125 MCG CAP PO SCH (09:00)
[2018-12-11] MEDS ORDERED: MAGNESIUM OXIDE 400 MG TAB PO SCH (09:00)
[2018-12-11] MEDS ORDERED: SPIRONOLACTONE 25 MG TAB PO SCH (09:00)
[2018-12-11] MEDS ORDERED: FUROSEMIDE 20 MG TAB PO SCH (09:00)
[2018-12-11] MEDS ORDERED: RIVAROXABAN 20 MG TAB PO SCH (09:00)
[2018-12-11 12:19] VITALS: BP 121/72; PULSE 69; RESP 17; TEMP 97.6
--- NOTE | 2018-12-11 12:36 | DS ---
DISCHARGE SUMMARY Kirsten is doing well from a cardiac standpoint. She is sitting up at the edge of the bed. She has no respiratory distress, but she does have bilateral rhonchi, no dizziness, lightheadedness, no chest pain. No swelling. No significant pain on the pacemaker site. On examination, her vitals are stable. Blood pressure is 130/53 mmHg, respirations are 16 to 18 comfortable, pulse rate is in the 60s, temperature is 98.2 degrees Fahrenheit. No JVD. Pacemaker site has healed well. There is minimal soakage. No swelling. Breath sounds are reduced bilaterally with bilateral rhonchi. Heart sounds S1, S2 are soft and normal and regular. Abdomen is soft. Extremities are warm. No edema. There is no JVD. IMPRESSION: 1. Sick sinus syndrome with sinus bradycardia necessitating reduction in the dose of her AV hosea blocking drugs for management of persistent atrial fibrillation with RVR. 2. Persistent atrial fibrillation on dofetilide with symptomatic breakthrough episodes with RVR, but during sinus rhythm she has this severe bradycardia. 3. Permanent pacemaker implantation yesterday with physiologic septal pacing and biventricular pacemaker generator, the 12-lead ECG is normal. 4. Midline QT interval absolute is 440 milliseconds, on dofetilide 125 mcg once daily only. 5. Physiologic selective HIS bundle pacing is noted. 6. Advanced chronic obstructive pulmonary disease. SUGGEST: Continue current medications. Continue anticoagulation. Pacemaker interrogation today. Completion of IV antibiotics and discharged home. Follow up in the [facility] within 1 week and follow up with Dr. Dominguez within 4-6 weeks. I will see her again for evaluation of atrial fibrillation and for dofetilide management in about 3-4 months. MMODL / IJN: [id number] /
[2018-12-11] MEDS: FAMOTIDINE 20 MG TAB PO SCH (13:16)
[2018-12-11] MEDS: METOPROLOL TARTRATE 25 MG TAB PO SCH (13:16)
--- NOTE | 2018-12-15 17:42 | CDI ---
Outpatient Documentation Clarification Form Date: 12/15/18 [employer] Sales Consultant Name: Allie Mckay Phone: If any questions, call Nila Sanchez Link Trainer Mechanic at [phone] Patient Name: Kirsten Hansen Admit Date: 12/10/18 Discharge Date: 12/10/18 ATTENTION: The [facility] Coding Staff appreciate your assistance in clarifying documentation. Please respond to the clarification below the line at the bottom and electronically sign. The [facility] Coding staff will review the response and follow-up if needed. Please note: Queries are made part of the Legal Health Record. If you have any questions, please contact the Link Trainer Mechanic. Dear Dr. Crowell, In order to code using the guidelines to the highest specificity, please clarify the type of atrial fibrillation involved. The H&P stats paroxysmal atrial fibrillation and the Procedure note states Persistent atrial fibrillation. Thank you for your kind consideration. _ MTDD
== END 2018-12-11 15:30 ==
LOC: CATHEP 10:53 → 1SOBS 14:59 → CATHEP 12-11 15:30
PROVIDERS: ATTEND Internal Medicine Clinical Cardiac Electrophysiology
DX: I48.1 Persistent atrial fibrillation (principal); I49.5 Sick sinus syndrome; I25.10 Atherosclerotic heart disease of native coronary artery without angina pectoris; I11.0 Hypertensive heart disease with heart failure; I50.9 Heart failure, unspecified; Z87.891 Personal history of nicotine dependence; E78.5 Hyperlipidemia, unspecified; I42.8 Other cardiomyopathies; I34.0 Nonrheumatic mitral (valve) insufficiency; K21.9 Gastro-esophageal reflux disease without esophagitis; J44.9 Chronic obstructive pulmonary disease, unspecified; Z98.51 Tubal ligation status; I77.89 Other specified disorders of arteries and arterioles; Z79.01 Long term (current) use of anticoagulants; Z79.899 Other long term (current) drug therapy
CPT/HCPCS: 33208; 33225; 94640 ×4; 71046; C1769 ×2; C1892; C1898; C2621; J2250; J0690 ×2; J2001; J3010; J2704; Q9966

== ENCOUNTER → 2019-02-03 | Outpatient (CLI) | payer MEDICARE, OTHER ==
--- NOTE | 2019-02-03 15:22 | CTL ---
EXAMINATION TYPE: CT Low Dose Lung DATE OF EXAM ORDERED: 02/03/2019 HISTORY: Personal history tobacco use. Lung cancer screening CT DLP: 107.[address] CTDI: 3.30 mGy Automated exposure control for dose reduction was used. SCREENING VISIT: Initial COMPARISON: None TECHNIQUE: Low dose computed tomography scan was performed through the chest at 1 mm thick sections a nd reconstructed images in the coronal plane at [address] DIAGNOSTIC QUALITY: Satisfactory FINDINGS: LUNG NODULES: Present, detailed below: There is a 2 mm rounded density at the right apex. Series 4 image 27 LUNGS: COPD: Severity: None Fibrosis: Severity: None Lymph nodes: Small scattered mediastinal lymph nodes Other findings: None RIGHT PLEURAL SPACE: Effusion: None Calcification: None Thickening: None Pneumothorax: None LEFT PLEURAL SPACE: Effusion: None Calcification: Very Minimal left upper lobe Thickening: None Pneumothorax: HEART: Heart Size: Normal Coronary calcification: Mild Pericardial effusion: None OTHER FINDINGS: Upper abdomen: Normal Bony thorax: Normal Supraclavicular region: Normal Other: Ascending thoracic aorta at the level the main pulmonary artery measures 3.7 cm. The main pul monary artery at the bifurcation measures 3.6 cm. IMPRESSION: No suspicious acute changes. Punctate nodule may be at the right apex. FOLLOW UP CT CHEST RECOMMENDATION: Follow-up low-dose CT chest per protocol, [address] LUNG RAD: 2
== END | disposition home or self-care (01) ==
LOC: RADCTMAIN 14:04
PROVIDERS: ATTEND Family Medicine
DX: Z12.2 Encounter for screening for malignant neoplasm of respiratory organs (principal); Z87.891 Personal history of nicotine dependence

== ENCOUNTER → 2019-06-15 | Outpatient (CLI) | payer MEDICARE, OTHER ==
--- NOTE | 2019-06-16 11:53 | MM ---
Reason for exam: screening (asymptomatic). Last mammogram was performed 1 year and 1 month ago. History: Patient is postmenopausal. Physical Findings: A clinical breast exam by your physician is recommended on an annual basis and results should be correlated with mammographic findings. MG 3D Screening Mammo W/Cad Bilateral CC and MLO view(s) were taken. Prior study comparison: May 18, 2018, bilateral MG 3d screening mammo w/cad. January 27, 2017, bilateral MG 3d screening mammo w/cad. There are scattered fibroglandular densities. Benign appearing bilateral calcifications. No significant changes when compared with prior studies. ASSESSMENT: Benign, BI-RAD 2 RECOMMENDATION: Routine screening mammogram of both breasts in 1 year.
== END | disposition home or self-care (01) ==
LOC: RADMAMWWP 13:42
PROVIDERS: ATTEND Family Medicine
DX: Z12.31 Encounter for screening mammogram for malignant neoplasm of breast (principal)
CPT/HCPCS: 77063; 77067

== ENCOUNTER → 2019-09-24 | Outpatient (CLI) | payer MEDICARE, OTHER ==
--- NOTE | 2019-09-26 15:40 | US ---
EXAMINATION TYPE: US kidneys/renal and bladder DATE OF EXAM: 09/24/2019 COMPARISON: NONE CLINICAL HISTORY: 69-year-old female Hematuria R31.9. TECHNIQUE: Multiple sonographic images of the kidneys and bladder are obtained. FINDINGS: EXAM MEASUREMENTS: Right Kidney: 8.8 x 4.8 x 3.3 cm Left Kidney: 8.5 x 4.0 x 4.2 cm Small size of the kidneys. No hydronephrosis on either side. Ultrasound has low sensitivity for dete ction of small solid masses. Bladder: Under distention limits evaluation. Bilateral Jets seen: Left only IMPRESSION: Suspect underlying chronic medical renal disease. No evident hydronephrosis by ultrasound. Underdistention of the bladder limits its evaluation.
== END | disposition home or self-care (01) ==
LOC: RADUSWWP 15:47
PROVIDERS: ATTEND Urology
DX: R31.9 Hematuria, unspecified (principal)
CPT/HCPCS: 76770

== ENCOUNTER 2019-12-01 06:41 | Day surgery (SDC) | payer MEDICARE, OTHER ==
[2019-11-26 13:30] VITALS: BMI 30.4
[~2019-12-01 06:41] MED LIST changes: +LACTATED RINGERS 1,000 ML IV SCH; +LIDOCAINE 1% (10MG/ML) FOR IV START INTRADERMA PRN; -ceFAZolin 1,000 MG in SODIUM CHLORIDE 0.9% IRRIGATIO 250 ML IRRIGATION ONE
[2019-12-01 07:10] VITALS: RESP 16; TEMP 97.5
[2019-12-01] MEDS ORDERED: PROPOFOL 10 MG/ML 20 ML VIAL IV ONE (07:35)
[2019-12-01] MEDS ORDERED: LIDOCAINE 1% INJ 10MG/ML (20 ML MDV) ONE (07:35)
--- NOTE | 2019-12-01 07:37 | P.GSHP ---
History of Present Illness H&P Date: 12/01/19 CHIEF COMPLAINT: GERD HISTORY OF PRESENT ILLNESS: The patient is a 69-year-old female who presents reports gastroesophageal reflux disease. Upper endoscopy was offered for further evaluation and management. PAST MEDICAL HISTORY: Please see list. PAST SURGICAL HISTORY: Please see list. MEDICATIONS: Please see list. ALLERGIES: Please see list. SOCIAL HISTORY: No illicit drug use FAMILY HISTORY: No reports of Crohn disease or ulcerative colitis. REVIEW OF ORGAN SYSTEMS: CONSTITUTIONAL: No reports of fevers or chills. GI: Denies any blood in stools or constipation. PHYSICAL EXAM: VITAL SIGNS: Stable GENERAL: Well-developed and pleasant in no acute distress. HEENT: No scleral icterus. Extraocular movements grossly intact. Moist buccal mucosa. NECK: Supple without lymphadenopathy. CHEST: Unlabored respirations. Equal bilateral excursions. CARDIOVASCULAR: Regular rate and rhythm. Distal 2+ pulses. ABDOMEN: Soft, nondistended. MUSCULOSKELETAL: No clubbing, cyanosis, or edema. ASSESSMENT: 1. Gastroesophageal reflux disease PLAN: 1. Recommend proceeding with an upper endoscopy Past Medical History Past Medical History: Atrial Fibrillation, COPD, Hyperlipidemia, Hypertension, Osteoarthritis (OA) Additional Past Medical History / Comment(s): states having difficulty swallowing food, hx diverticulitis History of Any Multi-Drug Resistant Organisms: None Reported Past Surgical History: Adenoidectomy, Bowel Resection, Cardiac Ablation, Cholecystectomy, Hernia Repair, Pacemaker, Tonsillectomy, Tubal Ligation Additional Past Surgical History / Comment(s): colonoscopy, RAGINI CATARACTS, cardioversion, Pacemaker Biventricular 1600 Past Anesthesia/Blood Transfusion Reactions: No Reported Reaction Type of Cardiac Device: Biventricular Pacemaker Device Placement Date:: 12/2018 Smoking Status: Former smoker - Past Family History Sister(s) Family Medical History: Cancer, Pulmonary Embolus Additional Family Medical History / Comment(s): tongue cancer Medications and Allergies Home Medications Medication Instructions Recorded Confirmed Type Atorvastatin [Lipitor] 20 mg PO HS 03/09/14 12/01/19 History Furosemide [Lasix] 20 mg PO DAILY 03/09/14 12/01/19 History Albuterol Nebulized [Ventolin 2.5 mg INHALATION Q4HR PRN 03/15/16 12/01/19 History Nebulized] Tiotropium [place] [Spiriva] 1 cap INHALATION DAILY 09/16/16 12/01/19 History Rivaroxaban [Xarelto] 20 mg PO DAILY 04/07/18 12/01/19 History Spironolactone [Aldactone] 25 mg PO DAILY 04/07/18 12/01/19 History Dofetilide [Tikosyn] 125 mcg PO DAILY 12/02/18 12/01/19 History Ipratropium-Albuterol Nebulize 3 ml INHALATION Q4-6H 11/26/19 12/01/19 History [Duoneb 0.5 mg-3 mg/3 ml Soln] Metoprolol Tartrate [Lopressor] 75 mg PO BID 11/26/19 12/01/19 History Allergies Allergy/AdvReac Type Severity Reaction Status Date / Time No Known Allergies Allergy Verified 12/01/19 07:09 Surgical - Exam Vital Signs Temp Pulse Resp BP Pulse Ox 97.5 F L 68 16 103/57 98 12/01/19 07:07 12/01/19 07:07 12/01/19 07:07 12/01/19 07:07 12/01/19 07:07
--- NOTE | 2019-12-01 07:53 | P.PCN ---
Date of Procedure: 12/01/19 Description of Procedure: PREOPERATIVE DIAGNOSIS: Gastroesophageal reflux disease. Dysphagia POSTOPERATIVE DIAGNOSIS: Gastritis. Duodenitis Gastroesophageal reflux disease with esophagitis Retained gastric food OPERATION: Esophagogastroduodenoscopy with biopsies along antrum, Distal esophagus, duodenum SURGEON: Katia Conley MD ANESTHESIA: MAC. INDICATIONS: The patient is a 69-year-old female who presents with a history of reflux disease An dysphagia. Benefits and risks of the procedure were described. Informed consent was obtained. DESCRIPTION: The patient was brought into the endoscopy suite and laid in the left lateral decubitus position. An Olympus gastroscope was passed along the posterior oropharynx down to the distal esophagus where the squamocolumnar junction was encountered at 40 cm from the incisors. The stomach was entered and bile reflux was found. Additional findings are listed below. Biopsies with cold forceps were obtained of the antrum. The first through third portion of the duodenum was examined and remarkable for duodenitis, atrophic changes. Retroflexion of the scope confirmed Hill grade 2 lower esophageal valve. The squamocolumnar junction demonstrated LA grade B erosive esophagitis. The stomach was desufflated. The patient tolerated the procedure well. FINDINGS: Squamocolumnar junction 40 cm from the incisors. Diaphragmatic hiatus at 40 cm. Hill grade 2 lower esophageal valve. LA grade B erosive esophagitis. Active duodenitis with atrophic changes first through third portion of duodenum Chronic gastritis Atrophic changes at the pylorus Moderate retained bile RECOMMENDATIONS: Upper endoscopy as needed. Plan - Discharge Summary Discharge Rx Participant: No New Discharge Prescriptions: Continue Furosemide [Lasix] 20 mg PO DAILY Atorvastatin [Lipitor] 20 mg PO HS Albuterol Nebulized [Ventolin Nebulized] 2.5 mg INHALATION Q4HR PRN PRN Reason: Shortness Of Breath Tiotropium [place] [Spiriva] 1 cap INHALATION DAILY Rivaroxaban [Xarelto] 20 mg PO DAILY Spironolactone [Aldactone] 25 mg PO DAILY Dofetilide [Tikosyn] 125 mcg PO DAILY Metoprolol Tartrate [Lopressor] 75 mg PO BID Ipratropium-Albuterol Nebulize [Duoneb 0.5 mg-3 mg/3 ml Soln] 3 ml INHALATION Q4-6H Discharge Medication List Atorvastatin [Lipitor] 20 mg PO HS 03/09/14 [History] Furosemide [Lasix] 20 mg PO DAILY 03/09/14 [History] Albuterol Nebulized [Ventolin Nebulized] 2.5 mg INHALATION Q4HR PRN 03/15/16 [History] Tiotropium [place] [Spiriva] 1 cap INHALATION DAILY 09/16/16 [History] Rivaroxaban [Xarelto] 20 mg PO DAILY 04/07/18 [History] Spironolactone [Aldactone] 25 mg PO DAILY 04/07/18 [History] Dofetilide [Tikosyn] 125 mcg PO DAILY 12/02/18 [History] Ipratropium-Albuterol Nebulize [Duoneb 0.5 mg-3 mg/3 ml Soln] 3 ml INHALATION Q4-6H 11/26/19 [History] Metoprolol Tartrate [Lopressor] 75 mg PO BID 11/26/19 [History] Follow up Appointment(s)/Referral(s): Katia Conley MD [STAFF PHYSICIAN] - 12/21/19 Patient Instructions/Handouts: Gastritis (DC), Gastroesophageal Reflux Disease (DC), Esophagitis (DC), Duodenitis (DC) Activity/Diet/Wound Care/Special Instructions: START XARELTO/BLOOD THINNER Nov Discharge Disposition: HOME SELF-CARE
[2019-12-01 08:09] VITALS: BP 109/78; PULSE 54
== END 2019-12-01 08:20 | disposition home or self-care (01) ==
LOC: ORWHC2ENDO 06:41
PROVIDERS: ATTEND Surgery Plastic and Reconstructive Surgery
DX: K29.80 Duodenitis without bleeding (principal); K29.50 Unspecified chronic gastritis without bleeding; K21.0 Gastro-esophageal reflux disease with esophagitis; K22.10 Ulcer of esophagus without bleeding; R13.10 Dysphagia, unspecified; I48.91 Unspecified atrial fibrillation; J44.9 Chronic obstructive pulmonary disease, unspecified; E78.5 Hyperlipidemia, unspecified; Z87.891 Personal history of nicotine dependence; I10 Essential (primary) hypertension; M19.90 Unspecified osteoarthritis, unspecified site; Z90.49 Acquired absence of other specified parts of digestive tract; Z95.0 Presence of cardiac pacemaker; Z98.51 Tubal ligation status; Z98.42 Cataract extraction status, left eye; Z98.41 Cataract extraction status, right eye; Z98.890 Other specified postprocedural states; Z97.2 Presence of dental prosthetic device (complete) (partial); Z80.0 Family history of malignant neoplasm of digestive organs; Z82.49 Family history of ischemic heart disease and other diseases of the circulatory system; Z79.01 Long term (current) use of anticoagulants; Z79.899 Other long term (current) drug therapy
CPT/HCPCS: 88305; 43239; J2001; J2704

== ENCOUNTER → 2020-08-17 | Outpatient (CLI) | payer MEDICARE, OTHER ==
--- NOTE | 2020-08-18 15:00 | MM ---
Reason for exam: screening (asymptomatic). Last mammogram was performed 1 year and 2 months ago. History: Patient is postmenopausal. Physical Findings: A clinical breast exam by your physician is recommended on an annual basis and results should be correlated with mammographic findings. MG 3D Screening Mammo W/Cad Bilateral CC and MLO view(s) were taken. Prior study comparison: June 15, 2019, bilateral MG 3d screening mammo w/cad. May 18, 2018, bilateral MG 3d screening mammo w/cad. The breast tissue is almost entirely fat. No significant changes when compared with prior studies. ASSESSMENT: Benign, BI-RAD 2 RECOMMENDATION: Routine screening mammogram of both breasts in 1 year.
== END | disposition home or self-care (01) ==
LOC: RADMAMWWP 14:31
PROVIDERS: ATTEND Family Medicine
DX: Z12.31 Encounter for screening mammogram for malignant neoplasm of breast (principal); Z78.0 Asymptomatic menopausal state
CPT/HCPCS: 77063; 77067

== ENCOUNTER → 2021-01-29 | Outpatient (CLI) | payer MEDICARE, OTHER ==
--- NOTE | 2021-01-30 05:25 | CTL ---
EXAMINATION TYPE: CT Low Dose Lung DATE OF EXAM ORDERED: 01/29/2021 HISTORY: 70-year-old female Personal hx tobacco use. Pt noted low breath sounds by her dr-Rt lung. Nilda ng cancer screening CT DLP: 71.[address] CTDI: 2.1 mGy Automated exposure control for dose reduction was used. SCREENING VISIT: 2 years since last screening COMPARISON: 02/03/2019 TECHNIQUE: Low dose computed tomography scan was performed through the chest with coronal and sagitta l reconstructions. CT DIAGNOSTIC QUALITY: Satisfactory FINDINGS: Left anterior chest wall pacemaker generator with 2 right atrial and right ventricular leads. Heart normal size without pericardial effusion. LAD coronary artery calcifications are present. Mildly ectatic ascending aorta 3.6 cm. Scattered mild atherosclerotic calcifications are present with in the aortic arch and descending thoracic aorta. Large caliber to the main right and left pulmonary arteries measuring up to 3.0 cm each suggesting un derlying pulmonary arterial hypertension. Prominent mediastinal lymph nodes measuring up to 1.0 cm which is in the precarinal and lower left pa ratracheal regions are unchanged. Moderate centrilobular emphysema. Moderate diffuse bronchial wall thickening. Strandy atelectasis or scarring peripheral right base is unchanged. Some strandy mucoid debris in the bryan region. Tiny 2 mm peripheral right upper lobe pulmonary nodule, axial image 64 is unchanged. No suspicious pulmonary nodules or masses. Visualized upper abdomen shows no gross abnormality. Some surgical material is present along the ante rior wall of the left upper quadrant. Bones: Moderate degenerative disc disease with anterior endplate spondylosis mid to lower thoracic sp ine. IMPRESSION: 1. LungRADS 2, benign. 2. COPD with moderate emphysema and pulmonary arterial hypertension. CT LUNG RAD AND CT CHEST RECOMMENDATION: Lung-Rad 2 Benign Appearance or Behavior: Continue annual sc reening with LDCT in 12 months. S Modifier (other clinically significant findings): None
== END | disposition home or self-care (01) ==
LOC: RADCTMAIN 17:13
PROVIDERS: ATTEND Family Medicine
DX: J43.9 Emphysema, unspecified (principal); I10 Essential (primary) hypertension; F17.210 Nicotine dependence, cigarettes, uncomplicated
CPT/HCPCS: 71271

== ENCOUNTER 2021-06-14 08:33 | Day surgery (SDC) | payer MEDICARE, OTHER ==
[2021-06-13 09:40] VITALS: BMI 24.3
[~2021-06-14 08:33] MED LIST changes: -LIDOCAINE 1% (10MG/ML) FOR IV START INTRADERMA PRN
--- NOTE | 2021-06-14 08:35 | P.GSHP ---
History of Present Illness H&P Date: 06/14/21 CHIEF COMPLAINT: Colon screen HISTORY OF PRESENT ILLNESS: The patient is a 70-year-old female who presents for colon screen. Lower endoscopy was offered for further evaluation and management. PAST MEDICAL HISTORY: Please see list. PAST SURGICAL HISTORY: Please see list. MEDICATIONS: Please see list. ALLERGIES: Please see list. SOCIAL HISTORY: No illicit drug use FAMILY HISTORY: No reports of Crohn disease or ulcerative colitis. REVIEW OF ORGAN SYSTEMS: CONSTITUTIONAL: No reports of fevers or chills. PHYSICAL EXAM: VITAL SIGNS: Stable GENERAL: Well-developed pleasant in no acute distress. HEENT: No scleral icterus. Extraocular movements grossly intact. Moist buccal mucosa. NECK: Supple without lymphadenopathy. CHEST: Unlabored respirations. Equal bilateral excursions. CARDIOVASCULAR: Regular rate and rhythm. Distal 2+ pulses. ABDOMEN: Soft, nontender, nondistended. MUSCULOSKELETAL: No clubbing, cyanosis, or edema. ASSESSMENT: 1. Colon screen. PLAN: 1. Recommend proceeding with a lower endoscopy Past Medical History Past Medical History: Atrial Fibrillation, COPD, Osteoarthritis (OA) Additional Past Medical History / Comment(s): HX diverticulitis, hx of colon polyps. History of Any Multi-Drug Resistant Organisms: None Reported Past Surgical History: Adenoidectomy, Bowel Resection, Cardiac Ablation, Cholecystectomy, Hernia Repair, Pacemaker, Tonsillectomy, Tubal Ligation Additional Past Surgical History / Comment(s): Colonoscopy, bilateral cataracts, cardioversion, Biventricular [employer] Pacemaker. Past Anesthesia/Blood Transfusion Reactions: No Reported Reaction Type of Cardiac Device: Biventricular Pacemaker Device Placement Date:: 2019 Past Psychological History: No Psychological Hx Reported Smoking Status: Current every day smoker Past Alcohol Use History: None Reported Additional Past Alcohol Use History / Comment(s): Smokes 4-5 cigarettes daily. Past Drug Use History: None Reported - Past Family History Sister(s) Family Medical History: Cancer, Pulmonary Embolus Additional Family Medical History / Comment(s): Tongue cancer. Medications and Allergies Home Medications Medication Instructions Recorded Confirmed Type Atorvastatin [Lipitor] 20 mg PO HS 03/09/14 06/13/21 History Albuterol Nebulized [Ventolin 2.5 mg INHALATION Q4HR PRN 03/15/16 06/13/21 History Nebulized] Tiotropium [place] [Spiriva] 1 cap INHALATION DAILY 09/16/16 06/13/21 History Rivaroxaban [Xarelto] 20 mg PO HS 04/07/18 06/13/21 History Spironolactone [Aldactone] 12.5 mg PO DAILY 04/07/18 06/13/21 History Dofetilide [Tikosyn] 125 mcg PO QAM 12/02/18 06/13/21 History Metoprolol Tartrate [Lopressor] 75 mg PO BID 11/26/19 06/13/21 History Albuterol Inhaler [Ventolin Hfa 1 puff INHALATION DIRECTED 06/13/21 06/13/21 History Inhaler] Stool Softener 1 tab PO DAILY 06/13/21 06/13/21 History Allergies Allergy/AdvReac Type Severity Reaction Status Date / Time No Known Allergies Allergy Verified 06/13/21 09:41
[2021-06-14 09:03] VITALS: RESP 16; TEMP 97
[2021-06-14] MEDS ORDERED: PHENYLEPHRINE-0.9% NACL SYG 1,000 MCG/10 ML SYRINGE ONE (10:05)
[2021-06-14] MEDS ORDERED: PROPOFOL 10 MG/ML 20 ML VIAL IV ONE (10:05)
[2021-06-14 10:47] VITALS: BP 128/74; PULSE 63
--- NOTE | 2021-06-14 22:18 | P.PCN ---
Date of Procedure: 06/14/21 Description of Procedure: PREOPERATIVE DIAGNOSIS: Personal history of malignant colon polyps History of sigmoid colectomy POSTOPERATIVE DIAGNOSIS: History of sigmoid colectomy Ascending colon adenoma Sigmoid colon adenoma Descending colon adenoma Sigmoid diverticulosis Internal hemorrhoids, grade 2 OPERATION: Colonoscopy to the ileocecal valve and appendiceal orifice, cecum Colonoscopy with cold forceps biopsy SURGEON: Katia Conley MD. ANESTHESIA: MAC. INDICATIONS: The patient is 70-year-old female who presents personal history of malignant colon polyps. Last colonoscopy 5 years. Benefits and risks were described and informed consent was obtained. DESCRIPTION OF PROCEDURE: The patient had undergone Sutab prep. The patient had been brought into the operating room and laid in the left lateral decubitus position. After adequate intravenous sedation, the rectum was examined with 2% lidocaine jelly. No external hemorrhoids were encountered. The rectal tone was within normal limits. No lesions were palpated in the rectal vault. An Olympus colonoscope was advanced until the cecum, ileocecal valve and appendiceal orifice were clearly viewed. The prep was good. Sigmoid diverticulosis was encountered. Colonic polyps were found and removed. No evidence of focal colitis was found. Retroflexion of the scope demonstrated grade 2 internal hemorrhoids without active bleeding or inflammation. The colon was desufflated. The patient had tolerated the procedure well. Withdrawal time was over 6 minutes. FINDINGS: Aronchick preparation quality scale 2 (1-5) Internal hemorrhoids, grade 2 No external hemorrhoids No arteriovenous malformations. Sigmoid diverticulosis Removal of 3 polyps: - Cold forceps biopsy at ascending colon, 4 mm polyp. - Cold forceps biopsy at 35 cm from the anal verge, 4 mm polyp, descending colon - Cold forceps biopsy at 25 cm from the anal verge, 3 mm polyp, sigmoid colon No focal colitis. RECOMMENDATIONS: Repeat colonoscopy in 3 years, 2024 Plan - Discharge Summary Discharge Rx Participant: No New Discharge Prescriptions: Continue Atorvastatin [Lipitor] 20 mg PO HS Albuterol Nebulized [Ventolin Nebulized] 2.5 mg INHALATION Q4HR PRN PRN Reason: Shortness Of Breath Tiotropium [place] [Spiriva] 1 cap INHALATION DAILY Rivaroxaban [Xarelto] 20 mg PO HS Spironolactone [Aldactone] 12.5 mg PO DAILY Dofetilide [Tikosyn] 125 mcg PO QAM Metoprolol Tartrate [Lopressor] 75 mg PO BID Albuterol Inhaler [Ventolin Hfa Inhaler] 1 puff INHALATION DIRECTED Stool Softener 1 tab PO DAILY Discharge Medication List Atorvastatin [Lipitor] 20 mg PO HS 03/09/14 [History] Albuterol Nebulized [Ventolin Nebulized] 2.5 mg INHALATION Q4HR PRN 03/15/16 [History] Tiotropium [place] [Spiriva] 1 cap INHALATION DAILY 09/16/16 [History] Rivaroxaban [Xarelto] 20 mg PO HS 04/07/18 [History] Spironolactone [Aldactone] 12.5 mg PO DAILY 04/07/18 [History] Dofetilide [Tikosyn] 125 mcg PO QAM 12/02/18 [History] Metoprolol Tartrate [Lopressor] 75 mg PO BID 11/26/19 [History] Albuterol Inhaler [Ventolin Hfa Inhaler] 1 puff INHALATION DIRECTED 06/13/21 [History] Stool Softener 1 tab PO DAILY 06/13/21 [History] Follow up Appointment(s)/Referral(s): Katia Conley MD [STAFF PHYSICIAN] - 06/21/21 Patient Instructions/Handouts: *Surgery [facility] - (Anesthesia) Endoscopy Discharge Instructions, Diverticulosis (DC), Advance Directives (ED), Colorectal Polyps (GEN), Diverticulosis Diet (GEN) Activity/Diet/Wound Care/Special Instructions: Review colonoscopy in 3 years, 2024. START BLOOD THINNER FRIDAY Discharge Disposition: HOME SELF-CARE
== END 2021-06-14 11:11 | disposition home or self-care (01) ==
LOC: ORWHC2ENDO 08:33
PROVIDERS: ATTEND Surgery Plastic and Reconstructive Surgery
DX: Z12.11 Encounter for screening for malignant neoplasm of colon (principal); D12.4 Benign neoplasm of descending colon; D12.5 Benign neoplasm of sigmoid colon; K57.30 Diverticulosis of large intestine without perforation or abscess without bleeding; K64.1 Second degree hemorrhoids; Z85.038 Personal history of other malignant neoplasm of large intestine; Z87.19 Personal history of other diseases of the digestive system; Z86.010 Personal history of colon polyps; Z82.49 Family history of ischemic heart disease and other diseases of the circulatory system; I48.91 Unspecified atrial fibrillation; I10 Essential (primary) hypertension; E78.5 Hyperlipidemia, unspecified; J44.9 Chronic obstructive pulmonary disease, unspecified; F17.210 Nicotine dependence, cigarettes, uncomplicated; M19.90 Unspecified osteoarthritis, unspecified site; Z95.0 Presence of cardiac pacemaker; Z79.899 Other long term (current) drug therapy; Z79.01 Long term (current) use of anticoagulants; Z90.89 Acquired absence of other organs; Z90.49 Acquired absence of other specified parts of digestive tract; Z98.890 Other specified postprocedural states; Z98.51 Tubal ligation status; Z98.42 Cataract extraction status, left eye; Z98.41 Cataract extraction status, right eye; Z80.8 Family history of malignant neoplasm of other organs or systems
CPT/HCPCS: 88305; 45380; J2370; J2704

== ENCOUNTER → 2021-07-03 | Outpatient (CLI) | payer MEDICARE, OTHER ==
--- NOTE | 2021-07-03 09:49 | CT ---
EXAMINATION TYPE: CT abdomen pelvis w con DATE OF EXAM: 07/03/2021 COMPARISON: CT dated 09/29/2018 HISTORY: Diverticulitis of large intestine w/o perforation or abscess CT DLP: 1009 mGycm Automated exposure control for dose reduction was used. TECHNIQUE: Helical acquisition of images was performed from the lung bases through the pelvis. CONTRAST: Performed with Oral Contrast and with IV Contrast, patient injected with 100 ml mL of Isovue 300. FINDINGS: LUNG BASES: No significant abnormality is appreciated. LIVER/GB: Previous cholecystectomy. No definite hepatic focal lesion identified. PANCREAS: No definite pancreatic lesion. SPLEEN: No significant abnormality is seen. ADRENALS: No significant abnormality is seen. KIDNEYS: No significant abnormality is seen. FREE AIR: No free air is visualized. RETROPERITONEAL ADENOPATHY: None visualized REPRODUCTIVE ORGANS: No gross uterine or adnexal mass. URINARY BLADDER: No significant abnormality is seen. PELVIC ADENOPATHY: None visualized. OSSEOUS STRUCTURES: Degenerative changes of the lower thoracic and lower lumbar spine. Mild anteroli sthesis of L4 over L5. BOWEL: Unremarkable stomach. Markedly dilated duodenum and proximal jejunal loops measuring up to 5. 5 cm with apparent transition in the pelvis. This is associated with mild twisting of the superior me senteric vessels in the mid abdomen and the proximal jejunal loop seen in the right side of the abdom en, not appreciated previously. This may suggest high-grade mechanical small bowel obstruction possib ly due to underlying adhesion or internal hernia, please correlate clinically. Slightly dilated small bowel loops in the left side of the abdomen measuring up to 3.3 cm without definite transition point . Unremarkable remainder of the small bowel. No evidence of pneumatosis, free peritoneal air or michael l venous gas. Unremarkable colonic anastomosis in the pelvis. Fecal loading of the colon with scatter ed uncomplicated colonic diverticulosis. OTHER: Scattered arterial atherosclerotic calcification with infrarenal abdominal aortic ectasia yuri uring up to 2.9 cm. No sizable ascites. Previous anterior abdominal wall hernia repair on the left si de with small hernia containing fat and bowel at that location. IMPRESSION: Markedly dilated duodenum and proximal jejunal loops as described above with apparent transition seen in the pelvis, associated with mild twisting of the superior mesenteric vessels and new location of the proximal jejunal loops in the right side of the abdomen. This is suggestive of acute high-grade mechanical small bowel obstruction with the underlying etiolog y could be related to adhesion or abnormal bowel rotation/internal hernia. Recommend clinical correla tion and surgical consultation. No evidence of pneumatosis, free peritoneal air or portal venous gas. Other findings as described above. A [place] critical message alert has been initiated for Katia Conley MD via the [employer] Critical Results System on 07/03/2021 9:47 AM. This message alert has been sent to Katia reddy MD via the preferences provided by the clinician for the receipt of Radiology Critical Findings . Message ID [id number].
--- NOTE | 2021-07-03 10:08 | P.PN ---
Progress Note - Text Progress Note Date: 07/03/21 Patient immediately notified for abnormal CT scan results for bowel obstruction. Patient was in [employer]. Patient advised to return to the hospital for admission.
[2021-07-03 16:08] LABS: Gliadin AB IgA, Deaminated NEGATIVE (NEGATIVE); Gliadin AB IgA, Unit 3.2 U/mL; Gliadin AB IgG, Deaminated NEGATIVE (NEGATIVE); Gliadin AB IgG, Unit 3.5 U/mL; Tis Transglutaminase IgA Unit 2.8 AI; Tis Transglutaminase IgG Unit 1.8 U/mL; Tissue Transglutaminase IgA NEGATIVE (NEGATIVE); Tissue Transglutaminase IgG NEGATIVE (NEGATIVE)
== END | disposition home or self-care (01) ==
LOC: RADCTMAIN 07:15
PROVIDERS: ATTEND Surgery Plastic and Reconstructive Surgery
DX: K57.32 Diverticulitis of large intestine without perforation or abscess without bleeding (principal); K90.0 Celiac disease
CPT/HCPCS: 82565; 84520; 83516 ×4; 74177; 36415; Q9967

== ENCOUNTER → 2021-08-20 | Outpatient (CLI) | payer MEDICARE, OTHER ==
--- NOTE | 2021-08-22 10:33 | MM ---
Reason for Exam: Screening (asymptomatic). Last screening mammogram was performed 12 month(s) ago. Patient History: Menarche at age 9. First Full-Term at age 18. Postmenopausal. Risk Values: Yesenia 5 year model risk: 1.7%. NCI Lifetime model risk: 4.3%. Film Views: Bilateral CC views were taken. Bilateral MLO views were taken. Right XCCL views were taken. Prior Study Comparison: 05/18/2018 Bilateral Screening Mammogram, [facility]. 06/15/2019 Bilateral Screening Mammogram, [facility]. 08/17/2020 Bilateral Screening Mammogram, [facility]. Tissue Density: There are scattered fibroglandular densities. Findings: Analyzed By CAD. No significant changes when compared with prior studies. Unchanged mole in the left breast. Overall Assessment: Negative, BI-RAD 1 Management: Screening Mammogram of both breasts in 1 year.
== END | disposition home or self-care (01) ==
LOC: RADMAMWWP 12:36
PROVIDERS: ATTEND Family Medicine
DX: Z12.31 Encounter for screening mammogram for malignant neoplasm of breast (principal)
CPT/HCPCS: 77063; 77067

== ENCOUNTER → 2022-08-27 | Outpatient (CLI) | payer MEDICARE, OTHER ==
--- NOTE | 2022-08-28 13:06 | MM ---
Reason for Exam: Screening (asymptomatic). Last screening mammogram was performed 12 month(s) ago. Patient History: Menarche at age 9. First Full-Term at age 18. Postmenopausal. Risk Values: Yesenia 5 year model risk: 1.7%. NCI Lifetime model risk: 4.0%. Prior Study Comparison: 01/27/2017 Bilateral Screening Mammogram, [facility]. 05/18/2018 Bilateral Screening Mammogram, [facility]. 06/15/2019 Bilateral Screening Mammogram, [facility]. 08/17/2020 Bilateral Screening Mammogram, [facility]. 08/20/2021 Bilateral MG 3D screening mammo w/cad, [facility]. Tissue Density: The breast tissue is heterogeneously dense. This may lower the sensitivity of mammography. Findings: Analyzed By CAD. There is no suspicious group of microcalcifications or new suspicious mass in either breast. Overall Assessment: Negative, BI-RAD 1 Management: Screening Mammogram of both breasts in 1 year. . Patient should continue monthly self-breast exams. A clinical breast exam by your physician is recommended on an annual basis. This exam should not preclude additional follow-up of suspicious palpable abnormalities. Note on Yesenia scores and lifetime risk: 1. A Yesenia score greater than 3% is considered moderate risk. If this is the case, consider specialist referral to assess eligibility for a risk reducing agent. 2. If overall lifetime risk for the development of breast cancer is 20% or higher, the patient may qualify for future screening with alternating mammogram and breast MRI. Electronically signed and approved by: Michael Odonnell M.D.
== END | disposition home or self-care (01) ==
LOC: RADMAMWWP 14:06
PROVIDERS: ATTEND Family Medicine
DX: Z12.31 Encounter for screening mammogram for malignant neoplasm of breast (principal); Z78.0 Asymptomatic menopausal state
CPT/HCPCS: 77063; 77067

== ENCOUNTER → 2023-09-22 | Outpatient (CLI) | payer MEDICARE, OTHER ==
--- NOTE | 2023-09-23 16:42 | MM ---
Reason for Exam: Screening (asymptomatic). Last mammogram was performed 1 year(s) and 1 month(s) ago. Patient History: Menarche at age 9. First Full-Term at age 18. Postmenopausal. Risk Values: Yesenia 5 year model risk: 1.7%. NCI Lifetime model risk: 3.8%. Prior Study Comparison: 08/17/2020 Bilateral Screening Mammogram, [facility]. 08/20/2021 Bilateral MG 3D screening mammo w/cad, [facility]. 08/27/2022 Bilateral MG 3D screening mammo w/cad, [facility]. Tissue Density: There are scattered areas of fibroglandular density. Findings: Analyzed By CAD. The pattern is symmetrical. Pattern appears stable. Some focal asymmetries in the upper outer mid left breast. No suspicious groups of microcalcifications, spiculated or lobular masses, architectural distortion or other secondary signs of malignancy are mammographically apparent. Overall Assessment: Benign, BI-RAD 2 Management: Screening Mammogram of both breasts in 1 year. A negative mammogram report should not preclude additional follow up of suspicious palpable abnormalities. Patient should continue monthly self breast exam. A clinical breast exam by your physician is recommended on an annual basis and results should be correlated with mammographic findings. Note on Yesenia scores and lifetime risk: 1. A Yesenia score greater than 3% is considered moderate risk. If this is the case, consider specialist referral to assess eligibility for a risk reducing agent. 2. If overall lifetime risk for the development of breast cancer is 20% or higher, the patient may qualify for future screening with alternating mammogram and breast MRI. Electronically signed and approved by: Ghanshyam Beasley D.O. Radiologis
== END | disposition home or self-care (01) ==
LOC: RADMAMWWP 14:34
PROVIDERS: ATTEND Family Medicine
DX: Z12.31 Encounter for screening mammogram for malignant neoplasm of breast (principal); Z78.0 Asymptomatic menopausal state
CPT/HCPCS: 77063; 77067

== ENCOUNTER 2023-10-27 10:45 | Observation (INO) | payer MEDICARE, OTHER ==
[2023-10-27] MEDS: IPRATROPIUM-ALBUTEROL 3 ML NEB INHALATION STA (11:25)
[2023-10-27] MEDS: methylPREDNISolone SOD SUCCI 125 MG/2 ML VIAL IV STA (11:28)
[2023-10-27] MEDS: SODIUM CHLORIDE 0.9% 500 ML 500 ML IV STA (11:28)
[2023-10-27 11:42] LABS: Anisocytosis Slight; Basophils # (A) 0.1 k/uL (0-0.2); Basophils % (A) 1 %; Eosinophils % (A) 1 %; HCT 36.1 % (34.0-46.0); HGB 12.1 gm/dL (11.4-16.0); Hypochromasia Moderate; Lymphocytes # (A) 1.3 k/uL (1.0-4.8); Lymphocytes % (A) 18 %; MCH 32.7 pg (25.0-35.0); MCHC 33.6 g/dL (31.0-37.0); MCV 97.6 fL (80.0-100.0); Macrocytosis Slight; Mean Platelet Volume 7.9; Monocytes # (A) 0.4 k/uL (0-1.0); Monocytes % (A) 5 %; Neutrophils % (A) 73 %; Platelet Count 264 k/uL (150-450); Poikilocytosis Moderate; RDW 16.3 % (11.5-15.5); WBC 6.8 k/uL (3.8-10.6)
[2023-10-27 11:51] LABS: INR 1.4 (<1.2); Partial Thromboplastin Time 33.8 sec (22.0-30.0); Prothrombin Time 14.3 sec (10.0-12.5)
[2023-10-27 11:53] LABS: ALT 12 U/L (4-34); AST 28 U/L (14-36); African American GFR (CKD) 67 (>60 ml/min/1.73 sqM); Albumin 3.6 g/dL (3.5-5.0); Alkaline Phosphatase 59 U/L (38-126); Anion Gap 4 mmol/L; Blood Urea Nitrogen 18 mg/dL (7-17); Calcium 9.2 mg/dL (8.4-10.2); Carbon Dioxide 34 mmol/L (22-30); Chloride 101 mmol/L (98-107); Glucose 81 mg/dL (74-99); Magnesium 1.9 mg/dL (1.6-2.3); Non-African American GFR(CKD) 58 (>60 ml/min/1.73 sqM); Potassium 3.8 mmol/L (3.5-5.1); Sodium 139 mmol/L (137-145); Total Bilirubin 2.8 mg/dL (0.2-1.3); Total Protein 6.1 g/dL (6.3-8.2)
[2023-10-27 12:00] LABS: NT-Pro-B-Type Natriuretic Pept 1690 pg/mL
--- NOTE | 2023-10-27 12:43 | ED ---
General Adult HPI - General Chief complaint: Shortness of Breath Stated complaint: SOB Time Seen by Provider: 10/27/23 10:57 Source: patient, RN notes reviewed Mode of arrival: wheelchair Limitations: no limitations - History of Present Illness Initial comments: 73-year-old female presents emergency department with chief complaint of shortness of breath. Patient states that she has COPD sees Dr. Box had exacerbation 6 weeks ago. States that she was on steroids. She states couple weeks ago she started herself on complicated from a family member. Patient states she was on 2 L but last week she increased it to 3 L. Patient states she still having shortness of breath. She does have mild leg swelling does take blood thinners for atrial fibrillation. Patient denies any chest pain states she does feel short of breath and lungs are tight. Patient does have history of pacemaker - Related Data Home Medications Medication Instructions Recorded Confirmed Atorvastatin [Lipitor] 20 mg PO HS 03/09/14 10/27/23 Albuterol Nebulized [Ventolin 2.5 mg INHALATION RT-QID 03/15/16 10/27/23 Nebulized] Rivaroxaban [Xarelto] 20 mg PO HS 04/07/18 10/27/23 Spironolactone [Aldactone] 12.5 mg PO DAILY 04/07/18 10/27/23 Dofetilide [Tikosyn] 125 mcg PO DAILY 12/02/18 10/27/23 Metoprolol Tartrate [Lopressor] 75 mg PO BID 11/26/19 10/27/23 Albuterol Inhaler [Ventolin Hfa 2 puff INHALATION RT-Q4H PRN 06/13/21 10/27/23 Inhaler] Ipratropium Nebulized [Atrovent 0.5 mg INHALATION RT-QID 07/03/21 10/27/23 Nebulized 0.2 MG/ML] Budesonide [Pulmicort] 0.5 mg INHALATION RT-BID 10/27/23 10/27/23 Famotidine [Pepcid] 20 mg PO DAILY 10/27/23 10/27/23 Furosemide [Lasix] 40 mg PO DAILY 10/27/23 10/27/23 Allergies Allergy/AdvReac Type Severity Reaction Status Date / Time No Known Allergies Allergy Verified 10/27/23 11:45 Review of Systems ROS Statement: Those systems with pertinent positive or pertinent negative responses have been documented in the HPI. ROS Other: All systems not noted in ROS Statement are negative. Past Medical History Past Medical History: COPD, Osteoarthritis (OA) Additional Past Medical History / Comment(s): see Dr Crowell H&P, past HX diverticulitis, hx of colon polyps, hernia left side of abdomen History of Any Multi-Drug Resistant Organisms: None Reported Past Surgical History: Adenoidectomy, Bowel Resection, Cardiac Ablation, Cholecystectomy, Hernia Repair, Tonsillectomy, Tubal Ligation Additional Past Surgical History / Comment(s): colonoscopy, RAGINI CATARACTS, cardioversion, Pacemaker Biventricular 1600 Past Anesthesia/Blood Transfusion Reactions: No Reported Reaction Type of Cardiac Device: Biventricular Pacemaker Device Placement Date:: 2019 Past Psychological History: No Psychological Hx Reported Smoking Status: Current every day smoker Past Alcohol Use History: None Reported Past Drug Use History: None Reported - Past Family History Sister(s) Family Medical History: Cancer, Pulmonary Embolus Additional Family Medical History / Comment(s): Tongue cancer. Father Family Medical History: No Reported History Additional Family Medical History / Comment(s): Father was healthy Mother Family Medical History: No Reported History Additional Family Medical History / Comment(s): Mother was healthy General Exam Limitations: no limitations General appearance: alert, in no apparent distress Head exam: Present: atraumatic, normocephalic, normal inspection Eye exam: Present: normal appearance, PERRL, EOMI. Absent: scleral icterus, conjunctival injection, periorbital swelling ENT exam: Present: normal exam, mucous membranes moist Neck exam: Present: normal inspection. Absent: tenderness, meningismus, lymphadenopathy Respiratory exam: Present: respiratory distress, wheezes, rhonchi. Absent: normal lung sounds bilaterally, rales, stridor Cardiovascular Exam: Present: normal rhythm, bradycardia, normal heart sounds. Absent: systolic murmur, diastolic murmur, rubs, gallop, clicks Neurological exam: Present: alert, oriented X3, CN II-XII intact Course Vital Signs 10/27/23 10/27/23 10/27/23 10:46 11:25 11:49 Temperature 97.6 F Pulse Rate 55 L 52 L 54 L Respiratory 32 H Rate Blood Pressure 94/56 O2 Sat by Pulse 89 L Oximetry EKG Findings - EKG Comments: EKG Findings:: EKG performed at 12: 57 atrial paced rate of 58 QRS 151 QRS 101 QT/QTc 463/459 - EKG Results: EKG: interpreted by [facility] Medical Decision Making - Medical Decision Making Was pt. sent in by a medical professional or institution (, [place], [employer], urgent care, hospital, or detention...) When possible be specific @ -No Did you speak to anyone other than the patient for history (EMS, parent, family, police, friend...)? What history was obtained from this source @ -No Did you review nursing and triage notes (agree or disagree)? Why? @ -I reviewed and agree with nursing and triage notes Were old charts reviewed (outside hosp., previous admission, EMS record, old EKG, old radiological studies, urgent care reports/EKG's, detention records)? Report findings @ -No old charts were reviewed Differential Diagnosis (chest pain, altered mental status, abdominal pain women, abdominal pain men, vaginal bleeding, weakness, fever, dyspnea, syncope, headache, dizziness, GI bleed, back pain, seizure, CVA, palpatations, mental health, musculoskeletal)? @ -Differential Dyspnea: Coronary syndrome, arrhythmia, tamponade, asthma, COPD, pulmonary embolism, pneumonia, pneumothorax, pulmonary effusion, anaphylaxis, diabetic ketoacidosis, flailed chest, pulmonary contusion, diaphragmatic rupture, anemia, neuromuscular, this is not meant to be an all-inclusive list. EKG interpreted by me (3pts min.). @ -As above X-rays interpreted by me (1pt min.). @ -chest x-ray shows evidence of pleural effusion, COPD CT interpreted by me (1pt min.). @ -None done U/S interpreted by me (1pt. min.). @ -None done What testing was considered but not performed or refused? (CT, X-rays, U/S, labs)? Why? @ -None What meds were considered but not given or refused? Why? @ -None Did you discuss the management of the patient with other professionals (professionals i.e. [employer], [employer], lab, RT, psych nurse, social organization professor, drop hammer set up operator, teacher, product safety officer, family service caseworker)? Give summary @ -[EMH for admission for COPD exacerbation, hypoxia Was smoking cessation discussed for >3mins.? @ -No Was critical care preformed (if so, how long)? @ -No Were there social determinants of health that impacted care today? How? (Homelessness, low income, unemployed, alcoholism, drug addiction, transportation, low edu. Level, literacy, decrease access to med. care, assisted, rehab)? @ -No Was there de-escalation of care discussed even if they declined (Discuss DNR or withdrawal of care, Hospice)? DNR status @ -No What co-morbidities impacted this encounter? (DM, HTN, Smoking, COPD, CAD, Cancer, CVA, ARF, Chemo, Hep., AIDS, mental health diagnosis, sleep apnea, morbid obesity)? @ -COPD Was patient admitted / discharged? Hospital course, mention meds given and route, prescriptions, significant lab abnormalities, going to OR and other pertinent info. @ -[Admitted patient presented for shortness of breath, COPD exacerbation. Patient was initially hypoxic is improved at this time after breathing treatments, steroids, oxygen supplement. Patient admitted for further steroids, breathing treatments patient was given Augmentin. Undiagnosed new problem with uncertain prognosis? @ -No Drug Therapy requiring intensive monitoring for toxicity (Heparin, Nitro, Insulin, Cardizem)? @ -No Were any procedures done? @ -No Diagnosis/symptom? @ -GUIDE EXCURSION exacerbation, acute hypoxic respiratory failure Acute, or Chronic, or Acute on Chronic? @ -Acute Uncomplicated (without systemic symptoms) or Complicated (systemic symptoms)? @ -Complicated Side effects of treatment? @ -No Exacerbation, Progression, or Severe Exacerbation? @ -No Poses a threat to life or bodily function? How? (Chest pain, USA, MS, pneumonia, PE, COPD, DKA, ARF, appy, cholecystitis, CVA, Diverticulitis, Homicidal, Suicidal, threat to staff... and all critical care pts) @ -Yes, respiratory arrest - Lab Data Result diagrams: 10/27/23 11:10/27/23 11: Lab Results 10/27/23 10/27/23 10/27/23 Range/Units 11:26 11: 11: WBC 6.8 (3.8-10.6) k/uL RBC 3.70 L (3.80-5.40) m/uL Hgb 12.1 (11.4-16.0) gm/dL Hct 36.1 (34.0-46.0) % MCV 97.6 (80.0-100.0) fL MCH 32.7 (25.0-35.0) pg MCHC 33.6 (31.0-37.0) g/dL RDW 16.3 H (11.5-15.5) % Plt Count 264 (150-450) k/uL MPV 7.9 Neutrophils % 73 % Lymphocytes % 18 % Monocytes % 5 % Eosinophils % 1 % Basophils % 1 % Neutrophils # 5.0 (1.3-7.7) k/uL Lymphocytes # 1.3 (1.0-4.8) k/uL Monocytes # 0.4 (0-1.0) k/uL Eosinophils # 0.0 (0-0.7) k/uL Basophils # 0.1 (0-0.2) k/uL Hypochromasia Moderate Poikilocytosis Moderate Anisocytosis Slight Macrocytosis Slight PT 14.3 H (10.0-12.5) sec INR 1.4 H (<1.2) APTT 33.8 H (22.0-30.0) sec Sodium 139 (137-145) mmol/L Potassium 3.8 (3.5-5.1) mmol/L Chloride 101 (98-107) mmol/L Carbon Dioxide 34 H (22-30) mmol/L Anion Gap 4 mmol/L BUN 18 H (7-17) mg/dL Creatinine 0.96 (0.52-1.04) mg/dL Est GFR (CKD-EPI)AfAm 67 (>60 ml/min/1.73 sqM) Est GFR (CKD-EPI)NonAf 58 (>60 ml/min/1.73 sqM) Glucose 81 (74-99) mg/dL Plasma Lactic Acid John (0.7-2.0) mmol/L Calcium 9.2 (8.4-10.2) mg/dL Magnesium 1.9 (1.6-2.3) mg/dL Total Bilirubin 2.8 H (0.2-1.3) mg/dL AST 28 (14-36) U/L ALT 12 (4-34) U/L Alkaline Phosphatase 59 (38-126) U/L Troponin I (0.000-0.034) ng/mL NT-Pro-B Natriuret Pep 1690 pg/mL Total Protein 6.1 L (6.3-8.2) g/dL Albumin 3.6 (3.5-5.0) g/dL 10/27/23 10/27/23 Range/Units 11:26 11:26 WBC (3.8-10.6) k/uL RBC (3.80-5.40) m/uL Hgb (11.4-16.0) gm/dL Hct (34.0-46.0) % MCV (80.0-100.0) fL MCH (25.0-35.0) pg MCHC (31.0-37.0) g/dL RDW (11.5-15.5) % Plt Count (150-450) k/uL MPV Neutrophils % % Lymphocytes % % Monocytes % % Eosinophils % % Basophils % % Neutrophils # (1.3-7.7) k/uL Lymphocytes # (1.0-4.8) k/uL Monocytes # (0-1.0) k/uL Eosinophils # (0-0.7) k/uL Basophils # (0-0.2) k/uL Hypochromasia Poikilocytosis Anisocytosis Macrocytosis PT (10.0-12.5) sec INR (<1.2) APTT (22.0-30.0) sec Sodium (137-145) mmol/L Potassium (3.5-5.1) mmol/L Chloride (98-107) mmol/L Carbon Dioxide (22-30) mmol/L Anion Gap mmol/L BUN (7-17) mg/dL Creatinine (0.52-1.04) mg/dL Est GFR (CKD-EPI)AfAm (>60 ml/min/1.73 sqM) Est GFR (CKD-EPI)NonAf (>60 ml/min/1.73 sqM) Glucose (74-99) mg/dL Plasma Lactic Acid John 1.6 (0.7-2.0) mmol/L Calcium (8.4-10.2) mg/dL Magnesium (1.6-2.3) mg/dL Total Bilirubin (0.2-1.3) mg/dL AST (14-36) U/L ALT (4-34) U/L Alkaline Phosphatase (38-126) U/L Troponin I 0.014 (0.000-0.034) ng/mL NT-Pro-B Natriuret Pep pg/mL Total Protein (6.3-8.2) g/dL Albumin (3.5-5.0) g/dL Disposition Clinical Impression: COPD exacerbation, Acute hypoxic respiratory failure Disposition: ADMITTED IP TO THIS HOSP Condition: Serious Referrals: Perry Reardon MD [Primary Care Provider] - 1-2 days Time of Disposition: 12:57
--- NOTE | 2023-10-27 12:49 | XR ---
EXAMINATION TYPE: XR chest 2V DATE OF EXAM: 10/27/2023 COMPARISON: 07/09/2021 HISTORY: Shortness of breath TECHNIQUE: Frontal and lateral views of the chest are obtained. FINDINGS: Scattered senescent parenchymal changes noted. Hyperinflation compatible with COPD. No evidence for infiltrate. No evidence for atelectasis. Small effusion right lung base. Heart size is stable. Mediastinal structures are stable and grossly unremarkable. No evidence for hilar prominence. Degenerative changes dorsal spine. IMPRESSION: 1. COPD changes with small effusion right lung base.
[2023-10-27] MEDS ORDERED: NALOXONE 0.4 MG/ML 1 ML VIAL IVP PRN ×2 (12:57→13:55)
[2023-10-27] MEDS: AMOXIC-POT CLAV 875-125MG 1 EACH TAB PO SCH (13:47)
[2023-10-27] MEDS ORDERED: BENZONATATE 100 MG CAP PO PRN (13:55)
--- NOTE | 2023-10-27 14:03 | P.HPIM ---
History of Present Illness H&P Date: 10/27/23 History of present illness; patient is a 73-year-old lady with past medical history sniffing and for COPD, chronic hypoxemic respiratory failure who presented to the ER because of worsening shortness of breath. Patient states that she was all right 1 week back when he started noticing that she was getting increasingly short of breath on exertion. Patient is complaining of wheezing. Denies any chest pain. There was no complaint of fever or chills. Denies any productive cough. There was no complaint of orthopnea or PND. Patient was complaining of swelling of lower extremities. Because of his worsening shortness of breath, patient came to the ER Initial lab work done in the ER showed WBC 6.8, hemoglobin 12.1, platelet count 264, INR 1.4, sodium 139, potassium 3.8, BUN 18, creatinine 0.96, glucose 81, bilirubin 2.8, EKG done in the ER showed heart rate of 58, electronic pacemaker, no ST segment elevation or depression seen, no T-wave inversions seen. Chest x-ray done in the ER showed COPD changes with small effusion right lung base Patient admitted to internal medicine service REVIEW OF SYSTEMS: CONSTITUTIONAL: No fever, no malaise, no fatigue. HEENT: No recent visual problems or hearing problems. Denied any sore throat. CARDIOVASCULAR: No chest pain, orthopnea, PND, no palpitations, no syncope. PULMONARY: As mentioned above GASTROINTESTINAL: No diarrhea, no nausea, no vomiting, no abdominal pain. NEUROLOGICAL: No headaches, no weakness, no numbness. HEMATOLOGICAL: Denies any bleeding or petechiae. GENITOURINARY: Denies any burning micturition, frequency, or urgency. MUSCULOSKELETAL/RHEUMATOLOGICAL: Denies any joint pain, swelling, or any muscle pain. ENDOCRINE: Denies any polyuria or polydipsia. The rest of the 14-point review of systems is negative. PHYSICAL EXAMINATION: GENERAL: The patient is alert and oriented x3, not in any acute distress. Well developed, well nourished. HEENT: Pupils are round and equally reacting to light. EOMI. No scleral icterus. No conjunctival pallor. Normocephalic, atraumatic. No pharyngeal erythema. No thyromegaly. CARDIOVASCULAR: S1 and S2 present. No murmurs, rubs, or gallops. PULMONARY: Coarse breath sound bilaterally, expiratory wheeze audible ABDOMEN: Soft, nontender, nondistended, normoactive bowel sounds. No palpable organomegaly. MUSCULOSKELETAL: No joint swelling or deformity. EXTREMITIES: No cyanosis, clubbing, or pedal edema. NEUROLOGICAL: Gross neurological examination did not reveal any focal deficits. SKIN: No rashes. Assessment and plan Acute COPD exacerbation Chronic hypoxemic respiratory failure Hyperlipidemia Atrial fibrillation Hypertension Monitor vital signs Monitor CBC Monitor CMP Continue ox supplementation Ordered mucolytic's in the form of Mucinex Ordered antitussives Ordered breathing treatments with DuoNeb Ordered Augmentin Ordered IV Solu-Medrol Consult pulmonology Labs and medication were reviewed.. Continue same treatment. Continue with symptomatic treatment. Resume home medication. Monitor labs and vitals. DVT and GI prophylaxis. Further recommendations as per clinical course of the patient Dictation was produced using [employer] dictation software. please excuse any grammatical, word or spelling errors. Past Medical History Past Medical History: COPD, Osteoarthritis (OA) Additional Past Medical History / Comment(s): see Dr Crowell H&P, past HX diverticulitis, hx of colon polyps, hernia left side of abdomen History of Any Multi-Drug Resistant Organisms: None Reported Past Surgical History: Adenoidectomy, Bowel Resection, Cardiac Ablation, Cholecystectomy, Hernia Repair, Tonsillectomy, Tubal Ligation Additional Past Surgical History / Comment(s): colonoscopy, RAGINI CATARACTS, cardioversion, Pacemaker Biventricular 1600 Past Anesthesia/Blood Transfusion Reactions: No Reported Reaction Type of Cardiac Device: Biventricular Pacemaker Device Placement Date:: 2019 Past Psychological History: No Psychological Hx Reported Smoking Status: Current every day smoker Past Alcohol Use History: None Reported Past Drug Use History: None Reported - Past Family History Sister(s) Family Medical History: Cancer, Pulmonary Embolus Additional Family Medical History / Comment(s): Tongue cancer. Father Family Medical History: No Reported History Additional Family Medical History / Comment(s): Father was healthy Mother Family Medical History: No Reported History Additional Family Medical History / Comment(s): Mother was healthy Medications and Allergies Home Medications Medication Instructions Recorded Confirmed Type Atorvastatin [Lipitor] 20 mg PO HS 03/09/14 10/27/23 History Albuterol Nebulized [Ventolin 2.5 mg INHALATION RT-QID 03/15/16 10/27/23 History Nebulized] Rivaroxaban [Xarelto] 20 mg PO HS 04/07/18 10/27/23 History Spironolactone [Aldactone] 12.5 mg PO DAILY 04/07/18 10/27/23 History Dofetilide [Tikosyn] 125 mcg PO DAILY 12/02/18 10/27/23 History Metoprolol Tartrate [Lopressor] 75 mg PO BID 11/26/19 10/27/23 History Albuterol Inhaler [Ventolin Hfa 2 puff INHALATION RT-Q4H PRN 06/13/21 10/27/23 History Inhaler] Ipratropium Nebulized [Atrovent 0.5 mg INHALATION RT-QID 07/03/21 10/27/23 History Nebulized 0.2 MG/ML] Budesonide [Pulmicort] 0.5 mg INHALATION RT-BID 10/27/23 10/27/23 History Famotidine [Pepcid] 20 mg PO DAILY 10/27/23 10/27/23 History Furosemide [Lasix] 40 mg PO DAILY 10/27/23 10/27/23 History Allergies Allergy/AdvReac Type Severity Reaction Status Date / Time No Known Allergies Allergy Verified 10/27/23 11:45 Physical Exam Vitals: Vital Signs Temp Pulse Resp BP Pulse Ox 10/27/23 13:00 50 L 20 103/51 96 10/27/23 12:00 50 L 20 118/60 96 10/27/23 11:49 54 L 10/27/23 11:25 52 L 10/27/23 10:46 97.6 F 55 L 32 H 94/56 89 L Intake and Output 10/26/23 10/27/23 10/27/23 22:59 06:59 14:59 Other: Weight 57.153 kg Results CBC & Chem 7: 10/27/23 11:26 10/27/23 11:26 Labs: Abnormal Lab Results - Last 24 Hours (Table) 10/27/23 10/27/23 10/27/23 Range/Units 11:26 11:26 11:26 RBC 3.70 L (3.80-5.40) m/uL RDW 16.3 H (11.5-15.5) % PT 14.3 H (10.0-12.5) sec INR 1.4 H (<1.2) APTT 33.8 H (22.0-30.0) sec Carbon Dioxide 34 H (22-30) mmol/L BUN 18 H (7-17) mg/dL Total Bilirubin 2.8 H (0.2-1.3) mg/dL Total Protein 6.1 L (6.3-8.2) g/dL
[2023-10-27] MEDS: IPRATROPIUM-ALBUTEROL 3 ML NEB INHALATION SCH (15:43)
[2023-10-27] MEDS: methylPREDNISolone SOD SUCCI 125 MG/2 ML VIAL IV SCH (18:27)
[2023-10-27] MEDS: NICOTINE 21MG/24HR PATCH TRANSDERM SCH (18:32)
[2023-10-27] MEDS: SODIUM CHLORIDE 0.9% 1,000 ML IV STA (18:32)
[2023-10-27] MEDS: SYMBICORT 160-4.5 MCG INHALER INHALATION SCH (20:39)
[2023-10-27] MEDS: guaiFENesin 600 MG TABLET.ER PO SCH (22:47)
[2023-10-27] MEDS: METOPROLOL TARTRATE 50 MG TAB PO SCH (22:47)
[2023-10-27] MEDS: ATORVASTATIN 20 MG TAB PO SCH (22:47)
[2023-10-27] MEDS: RIVAROXABAN 15 MG TAB PO SCH (22:59)
--- NOTE | 2023-10-28 00:38 | P.CNPUL ---
History of Present Illness Consult date: 10/28/23 Requesting physician: Santosh Bray Reason for consult: COPD Chief complaint: Shortness of breath, cough, chest congestion History of present illness: Patient is a 73-year-old white female with past medical history significant for severe COPD, paroxysmal atrial fibrillation, SSS status/post biventricular permanent pacemaker, hypertension, hyperlipidemia, and tobacco dependence. Patient does follow in the pulmonary office with Dr. Rodriguez for management of her severe COPD. She has an FEV1 32% of predicted. States her last cigarette was approximately 2 weeks ago. Prior to that she smoked 1/2 pack/day for most of her life. She does have home O2 available at home, normally maintained on 2 L/min nasal cannula, but over the last week she has increased to 3 L/min nasal cannula. She is normally maintained on a combination of budesonide inhalations, DuoNebs [id number], and as needed albuterol HFA inhaler. She was recently treated on outpatient basis for an acute COPD exacerbation. She was given a Depo-Medrol shot, prednisone burst taper, and 10-day course of Augmentin. She s tates that she initially noted some substantial improvement with this treatment. She was also given a trial of Trelegy inhaler for 2 weeks, but has since ran out. Over the last 2 to 3 weeks, her breathing has worsened. She is complaining of worsening exertional dyspnea. Associated intermittent wheezing and chest congestion. She has a persistent cough with occasional clear to yellow sputum production. Denies any hemoptysis. Denies any fevers. Denies any chest pain. Denies any sick contacts. She lives alone. He is also noted some right lower ankle/foot swelling. This is new over the last week. Denies trauma or tenderness. She is chronically anticoagulated on Xarelto for her atrial fi brillation. Does have family history of DVTs, but no personal history. Denies any chest pain, heart palpitations, or syncopal events. CBC unremarkable. No leukocytosis. CMP: Sodium 139, potassium 3.8, chloride 101, serum bicarb 34, BUN 18, creatinine 0.96, glucose 281. Lactic acid 1.6. LFTs unremarkable. Troponin 0.014. NT proBNP 1690. EKG showing regular rhythm and dual pacing. Patient is currently sitting at the edge of the bed, on 3 L/min nasal cannula, in no acute distress while at rest. Chest x-ray showing chronic changes and a small chronic right lower lobe pleural effusion. I do not see any remarkable infiltrates or evidence of pneumonia. She is afebrile. Vital signs are stable. Review of Systems REVIEW OF SYSTEMS: CONSTITUTIONAL: Denies any recent significant weight loss or weight gain. EYES: Denies change in vision. EARS, NOSE, MOUTH, THROAT: Denies headaches, denies sore throat. CARDIOVASCULAR: Denies chest pain, palpitations or syncopal episodes. RESPIRATORY: See HPI GASTROINTESTINAL: Denies change in appetite, abdominal pain, nausea and vomiting, or diarrhea GENITOURINARY: Denies hematuria, denies infections. MUSKULOSKELETAL: Denies pain, denies swelling. INTEGUMENTARY: Denies rash, denies eczema. NEUROLOGICAL: Denies recent memory loss, no recent seizure activity. PSYCHIATRIC: Denies anxiety, denies depression. HEMATOLOGIC/LYMPHATIC: Denies anemia, denies enlarged lymph node Past Medical History Past Medical History: COPD, Osteoarthritis (OA) Additional Past Medical History / Comment(s): see Dr Crowell H&P, past HX diverticulitis, hx of colon polyps, hernia left side of abdomen History of Any Multi-Drug Resistant Organisms: None Reported Past Surgical History: Adenoidectomy, Bowel Resection, Cardiac Ablation, Cholecystectomy, Hernia Repair, Tonsillectomy, Tubal Ligation Additional Past Surgical History / Comment(s): colonoscopy, RAGINI CATARACTS, cardioversion, Pacemaker Biventricular 1600 Past Anesthesia/Blood Transfusion Reactions: No Reported Reaction Type of Cardiac Device: Biventricular Pacemaker Device Placement Date:: 2019 Past Psychological History: No Psychological Hx Reported Additional Psychological History / Comment(s): Pt resides alone with her dog. She has a nebulizer. She is independent. Smoking Status: Current every day smoker Past Alcohol Use History: None Reported Additional Past Alcohol Use History / Comment(s): quit smoking 04/06/18, smoked ABOUT 1 PACK PER WEEK. Past Drug Use History: None Reported - Past Family History Sister(s) Family Medical History: Cancer, Pulmonary Embolus Additional Family Medical History / Comment(s): Tongue cancer. Father Family Medical History: No Reported History Additional Family Medical History / Comment(s): Father was healthy Mother Family Medical History: No Reported History Additional Family Medical History / Comment(s): Mother was healthy Medications and Allergies Home Medications Medication Instructions Recorded Confirmed Type Atorvastatin [Lipitor] 20 mg PO HS 03/09/14 10/27/23 History Albuterol Nebulized [Ventolin 2.5 mg INHALATION RT-QID 03/15/16 10/27/23 History Nebulized] Rivaroxaban [Xarelto] 20 mg PO HS 04/07/18 10/27/23 History Spironolactone [Aldactone] 12.5 mg PO DAILY 04/07/18 10/27/23 History Dofetilide [Tikosyn] 125 mcg PO DAILY 12/02/18 10/27/23 History Metoprolol Tartrate [Lopressor] 75 mg PO BID 11/26/19 10/27/23 History Albuterol Inhaler [Ventolin Hfa 2 puff INHALATION RT-Q4H PRN 06/13/21 10/27/23 History Inhaler] Ipratropium Nebulized [Atrovent 0.5 mg INHALATION RT-QID 07/03/21 10/27/23 History Nebulized 0.2 MG/ML] Budesonide [Pulmicort] 0.5 mg INHALATION RT-BID 10/27/23 10/27/23 History Famotidine [Pepcid] 20 mg PO DAILY 10/27/23 10/27/23 History Furosemide [Lasix] 40 mg PO DAILY 10/27/23 10/27/23 History Allergies Allergy/AdvReac Type Severity Reaction Status Date / Time No Known Allergies Allergy Verified 10/27/23 11:45 Physical Exam Vitals: Vital Signs Temp Pulse Pulse Resp BP BP Pulse Ox 10/27/23 21:11 98.0 F 69 18 120/70 93 L 10/27/23 20:47 66 10/27/23 20:40 62 22 105/56 93 L 10/27/23 20:39 64 10/27/23 18:00 57 L 16 103/51 96 10/27/23 15:56 63 10/27/23 15:43 68 10/27/23 15:00 50 L 20 108/54 98 10/27/23 13:00 50 L 20 103/51 96 10/27/23 12:00 50 L 20 118/60 96 10/27/23 11:49 54 L 10/27/23 11:25 52 L 10/27/23 10:46 97.6 F 55 L 32 H 94/56 89 L Intake and Output 10/27/23 10/27/23 10/28/23 14:59 22:59 06:59 Intake Total 540 Balance 540 Intake: Oral 540 Other: # Voids 1 Weight 57.153 kg 57.153 kg GENERAL EXAM: Alert, 73-year-old white female, sitting at the edge of the bed, comfortable in no apparent distress. HEAD: Normocephalic and atraumatic EYES: Normal reaction of pupils, equal size. NOSE: Clear with pink turbinates. THROAT: No erythema or exudates. NECK: No masses, no JVD. CHEST: No chest wall deformity. LUNGS: Equal air entry with markedly diminished lung sounds throughout and right basilar inspiratory crackles. On 3 L/min nasal cannula.. No conversational dyspnea or accessory muscle use or at rest CVS: S1 and S2 normal with no audible murmur, regular rhythm. No extra heart sounds ABDOMEN: No hepatosplenomegaly, active bowel sounds, no guarding or rigidity. SPINE: No scoliosis or deformity SKIN: No rashes CENTRAL NERVOUS SYSTEM: No focal deficits, tone is normal in all 4 extremities. EXTREMITIES: There is right lower ankle/pedal edema. No clubbing, or cyanosis. Peripheral pulses are intact. Results - Laboratory Findings CBC and BMP: 10/27/23 11:26 10/27/23 11:26 PT/INR, D-dimer PT 14.3 sec (10.0-12.5) H 10/27/23 11:26 INR 1.4 (<1.2) H 10/27/23 11:26 Abnormal lab findings: Abnormal Labs 10/27/23 10/27/23 10/27/23 11:26 11:26 11:26 RBC 3.70 L RDW 16.3 H PT 14.3 H INR 1.4 H APTT 33.8 H Carbon Dioxide 34 H BUN 18 H Total Bilirubin 2.8 H Total Protein 6.1 L - Diagnostic Findings Chest x-ray: image reviewed Assessment and Plan Assessment: Acute COPD exacerbation, chest x-ray showing mostly chronic changes, hyperinflation consistent with COPD, and a chronic small right lower lobe pleural effusion. Acute on chronic hypoxemic respiratory failure, secondary to above History of paroxysmal atrial fibrillation, chronically anticoagulated on Xarelto History of sick sinus syndrome status post biventricular pacemaker History of hyperlipidemia History of chronic tobacco dependence, last cigarette approximately 2 weeks ago Plan: Patient's medications, labs, chest x-ray Continue supplemental oxygen to maintain oxygen saturation of 90% or greater Continue combination of Symbicort inhaler, DuoNebs, and IV Solu-Medrol 60 mg every 6 hours Empiric Augmentin added in the emergency department Smoking cessation counseling reinforced Nicotine replacement offered Obtain venous Doppler of right lower extremity Xarelto has been resumed Pepcid was added for GI prophylaxis Will continue to follow I have personally seen and examined the patient, performed the documentation and the assessment and plan as written. Number of minutes spent on the visit:20 Time with Patient: Greater than 30
--- NOTE | 2023-10-28 08:15 | US ---
EXAMINATION TYPE: US venous doppler duplex LE RT DATE OF EXAM: 10/28/2023 12:02 AM COMPARISON: NONE CLINICAL INDICATION: Female, 73 years old with history of rule out DVT; No hx of DVT. Patient on Xare lto. Right leg swelling x 2 weeks. SIDE PERFORMED: Right TECHNIQUE: The lower extremity deep venous system is examined utilizing real time linear array sonog serafin with graded compression, doppler sonography and color-flow sonography. VESSELS IMAGED: Common Femoral Vein Deep Femoral Vein Greater Saphenous Vein * Femoral Vein Popliteal Vein Small Saphenous Vein * Proximal Calf Veins (* superficial vessels) Right Leg: No evidence of DVT. IMPRESSION:
[2023-10-28] MEDS: DOFETILIDE 125 MCG CAP PO SCH (09:18)
[2023-10-28] MEDS: FAMOTIDINE 20 MG TAB PO SCH (09:18)
[2023-10-28] MEDS: FUROSEMIDE 40 MG TAB PO SCH (09:18)
[2023-10-28] MEDS: SPIRONOLACTONE 25 MG TAB PO SCH (09:19)
--- NOTE | 2023-10-28 12:41 | P.PN ---
Subjective Progress Note Date: 10/28/23 patient is a 73-year-old lady with past medical history sniffing and for COPD, chronic hypoxemic respiratory failure who presented to the ER because of worsening shortness of breath. Patient states that she was all right 1 week back when he started noticing that she was getting increasingly short of breath on exertion. Patient is complaining of wheezing. Denies any chest pain. There was no complaint of fever or chills. Denies any productive cough. There was no complaint of orthopnea or PND. Patient was complaining of swelling of lower extremities. Because of his worsening shortness of breath, patient came to the ER Initial lab work done in the ER showed WBC 6.8, hemoglobin 12.1, platelet count 264, INR 1.4, sodium 139, potassium 3.8, BUN 18, creatinine 0.96, glucose 81, bilirubin 2.8, EKG done in the ER showed heart rate of 58, electronic pacemaker, no ST segment elevation or depression seen, no T-wave inversions seen. Chest x-ray done in the ER showed COPD changes with small effusion right lung base Patient admitted to internal medicine service 10/27. Patient seen and examined. States breathing is improved. Complaining of increased burning and odor in urine REVIEW OF SYSTEMS: CONSTITUTIONAL: No fever, no malaise,. CARDIOVASCULAR: No chest pain, no palpitations, no syncope. PULMONARY: No shortness of breath, no cough, GASTROINTESTINAL: No diarrhea, no nausea, no vomiting, no abdominal pain. NEUROLOGICAL: No headaches, no weakness, PHYSICAL EXAMINATION: GENERAL: The patient is alert and oriented x3, not in any acute distress. Well developed, well nourished. HEENT: Pupils are round and equally reacting to light. EOMI. No scleral icterus. No conjunctival pallor. Normocephalic, atraumatic. No pharyngeal erythema. No thyromegaly. CARDIOVASCULAR: S1 and S2 present. No murmurs, rubs, or gallops. PULMONARY: Chest is clear to auscultation, no wheezing or crackles. ABDOMEN: Soft, nontender, nondistended, normoactive bowel sounds. No palpable organomegaly. MUSCULOSKELETAL: No joint swelling or deformity. EXTREMITIES: No cyanosis, clubbing, or pedal edema. NEUROLOGICAL: Gross neurological examination did not reveal any focal deficits. SKIN: No rashes. Assessment and plan Acute COPD exacerbation Chronic hypoxemic respiratory failure Hyperlipidemia Atrial fibrillation Hypertension Monitor vital signs Monitor CBC Monitor CMP Continue ox supplementation Continue mucolytic's in the form of Mucinex Continue antitussives Continue breathing treatments with DuoNeb Continue Augmentin Continue IV Solu-Medrol Pulmonary following Labs and medication were reviewed.. Continue same treatment. Continue with symptomatic treatment. Resume home medication. Monitor labs and vitals. DVT and GI prophylaxis. Further recommendations as per clinical course of the patient Dictation was produced using [employer] dictation software. please excuse any grammatical, word or spelling errors. Objective - Vital Signs Vital signs: Vital Signs Temp 97.7 F 10/28/23 07:00 Pulse 68 10/28/23 08:44 Resp 17 10/28/23 07:00 BP 111/68 10/28/23 07:00 Pulse Ox 91 L 10/28/23 07:00 FiO2 Intake & Output 10/27/23 10/28/23 10/28/23 18:59 06:59 18:59 Intake Total 540 118 Balance 540 118 Weight 57.153 kg 57.153 kg Intake: Oral 540 118 Other: Voiding Method Toilet # Voids 2 - Labs CBC & Chem 7: 10/27/23 11:26 10/27/23 11:26 Labs: Abnormal Lab Results - Last 24 Hours (Table) 10/27/23 10/27/23 10/27/23 Range/Units 11:26 11:26 11:26 RBC 3.70 L (3.80-5.40) m/uL RDW 16.3 H (11.5-15.5) % PT 14.3 H (10.0-12.5) sec INR 1.4 H (<1.2) APTT 33.8 H (22.0-30.0) sec Carbon Dioxide 34 H (22-30) mmol/L BUN 18 H (7-17) mg/dL Total Bilirubin 2.8 H (0.2-1.3) mg/dL Total Protein 6.1 L (6.3-8.2) g/dL
[2023-10-28 16:37] LABS: Appearance,Urine Clear (Clear); Bilirubin,Urine Negative (Negative); Blood,Urine Trace (Negative); Color,Urine Colorless; Glucose,Urine (UA) Negative (Negative); Hyaline Casts,Urine 1 /lpf (0-2); Ketones,Urine Negative (Negative); Leukocyte Esterase,Urine Negative (Negative); Mucus,Urine Rare /hpf; Nitrite,Urine Negative (Negative); Protein,Urine Negative (Negative); RBC,Urine 1 /hpf (0-5); Specific Gravity,Urine 1.012 (1.001-1.035); Urobilinogen,Urine <2.0 mg/dL (<2.0); WBC,Urine <1 /hpf (0-5)
[2023-10-29 10:19] LABS: Basophils # (A) 0.01 X 10*3/uL (0.00-0.10); Basophils % (A) 0.1 %; Eosinophils # (A) 0 X 10*3/uL (0.04-0.35); Eosinophils % (A) 0 %; HCT 32.1 % (37.2-46.3); HGB 10.6 g/dL (12.0-15.0); Lymphocytes % (A) 2.9 %; MCH 32.3 pg (27.0-32.0); MCV 97.9 FL (80.0-97.0); Mean Platelet Volume 10.9 FL (9.5-12.2); Monocytes # (A) 0.27 X 10*3/uL (0.20-1.00); NRBC Per 100 WBC 0 X 10*3/uL (0.00-0.01); Neutrophils # (A) 12.82 X 10*3/uL (1.80-7.70); Neutrophils % (A) 94.2 %; Platelet Count 212 X 10*3/uL (140-440); RBC 3.28 X 10*6/uL (4.10-5.20); WBC 13.61 X 10*3/uL (4.50-10.00)
[2023-10-29 10:41] LABS: ALT 8 U/L (8-44); AST 18 U/L (13-35); Albumin 3.6 g/dL (3.8-4.9); Alkaline Phosphatase 74 U/L (41-126); BUN/Creat Ratio 17.56 Ratio (12.00-20.00); Blood Urea Nitrogen 15.8 mg/dL (9.0-27.0); Calcium 8.7 mg/dL (8.7-10.3); Carbon Dioxide 28.4 mmol/L (21.6-31.8); Chloride 100 mmol/L (96-109); Globulin 1.8 g/dL (1.6-3.3); Glucose 128 mg/dL (70-110); Potassium 3.9 mmol/L (3.5-5.5); Sodium 140 mmol/L (135-145); Total Protein 5.4 g/dL (6.2-8.2)
--- NOTE | 2023-10-29 11:33 | P.PN ---
Subjective Progress Note Date: 10/29/23 Patient is a 73-year-old white female with past medical history significant for severe COPD, paroxysmal atrial fibrillation, SSS status/post biventricular permanent pacemaker, hypertension, hyperlipidemia, and tobacco dependence. Patient does follow in the pulmonary office with Dr. Rodriguez for management of her severe COPD. She has an FEV1 32% of predicted. States her last cigarette was approximately 2 weeks ago. Prior to that she smoked 1/2 pack/day for most of her life. She does have home O2 available at home, normally maintained on 2 L/min nasal cannula, but over the last week she has increased to 3 L/min nasal cannula. She is normally maintained on a combination of budesonide inhalations, DuoNebs [id number], and as needed albuterol HFA inhaler. She was recently treated on outpatient basis for an acute COPD exacerbation. She was given a Depo-Medrol shot, prednisone burst taper, and 10-day course of Augmentin. She states that she initially noted some substantial improvement with this treatment. She was also given a trial of Trelegy inhaler for 2 weeks, but has since ran out. Over the last 2 to 3 weeks, her breathing has worsened. She is complaining of worsening exertional dyspnea. Associated intermittent wheezing and chest congestion. She has a persistent cough with occasional clear to yellow sputum production. Denies any hemoptysis. Denies any fevers. Denies any chest pain. Denies any sick contacts. She lives alone. He is also noted some right lower ankle/foot swelling. This is new over the last week. Denies trauma or tenderness. She is chronically anticoagulated on Xarelto for her atrial fibrillation. Does have family history of DVTs, but no personal history. Denies any chest pain, heart palpitations, or syncopal events. CBC unremarkable. No leukocytosis. CMP: Sodium 139, potassium 3.8, chloride 101, serum bicarb 34, BUN 18, creatinine 0.96, glucose 281. Lactic acid 1.6. LFTs unremarkable. Troponin 0.014. NT proBNP 1690. EKG showing regular rhythm and dual pacing. Patient is currently sitting at the edge of the bed, on 3 L/min nasal cannula, in no acute distress while at rest. Chest x-ray showing chronic changes and a small chronic right lower lobe pleural effusion. I do not see any remarkable infiltrates or evidence of pneumonia. She is afebrile. Vital signs are stable. The patient is seen today October 29, 2023 in follow-up on the active care unit. She is up ambulating in her room. Awake and alert in no acute distress. Maintaining O2 saturations in the 90s on 2 L/min per nasal cannula. Venous Doppler of the right lower extremity revealed no evidence of DVT. White count 13.6. Hemoglobin 10.6. Platelets 212. Sodium 140. Potassium 3.9. Bicarb 28. BUN 16. Creatinine 0.9. Glucose 128. Procalcitonin was 0.04. Antibiotics discontinued. She is continued on DuoNeb inhalations, Symbicort, Solu-Medrol. NicoDerm patch in place. Remains on oral diuretics. Objective - Vital Signs Vital signs: Vital Signs Temp 98.2 F 10/29/23 04:00 Pulse 56 L 10/29/23 09:05 Resp 18 10/29/23 08:00 BP 115/61 10/29/23 08:00 Pulse Ox 96 10/29/23 08:00 FiO2 Intake & Output 10/28/23 10/29/23 10/29/23 18:59 06:59 18:59 Intake Total 118 360 Output Total 300 Balance -182 360 Weight 59.1 kg Intake: Oral 118 360 Output: Urine 300 Other: Voiding Method Toilet Toilet Toilet # Voids 1 - Exam GENERAL EXAM: Alert, active, pleasant 73-year-old female, on 2 L nasal cannula, comfortable in no apparent distress. HEAD: Normocephalic. EYES: Normal reaction of pupils, equal size. NOSE: Clear with pink turbinates. THROAT: No erythema or exudates. NECK: No masses, no JVD. CHEST: No chest wall deformity. LUNGS: Equal air entry with end expiratory wheeze, diminished. CVS: S1 and S2 normal with no audible murmur, regular rhythm. ABDOMEN: No hepatosplenomegaly, normal bowel sounds, no guarding or rigidity. SPINE: No scoliosis or deformity SKIN: No rashes CENTRAL NERVOUS SYSTEM: No focal deficits, tone is normal in all 4 extremities. EXTREMITIES: There is 1+ peripheral edema right greater than left. No clubbing, no cyanosis. Peripheral pulses are intact. - Labs CBC & Chem 7: 10/29/23 07:49 10/29/23 07:49 Labs: Abnormal Lab Results - Last 24 Hours (Table) 10/28/23 10/29/23 10/29/23 Range/Units 15:30 07:49 07:49 WBC 13.61 H (4.50-10.00) X 10*3/uL RBC 3.28 L (4.10-5.20) X 10*6/uL Hgb 10.6 L (12.0-15.0) g/dL Hct 32.1 L (37.2-46.3) % MCV 97.9 H (80.0-97.0) FL MCH 32.3 H (27.0-32.0) pg RDW 16.0 H (11.5-14.5) % Immature Gran # 0.11 H (0.00-0.04) X 10*3/uL Neutrophils # 12.82 H (1.80-7.70) X 10*3/uL Lymphocytes # 0.40 L (0.90-5.00) X 10*3/uL Eosinophils # 0 L (0.04-0.35) X 10*3/uL Glucose 128 H (70-110) mg/dL Total Protein 5.4 L (6.2-8.2) g/dL Albumin 3.6 L (3.8-4.9) g/dL Urine Blood Trace H (Negative) Urine Mucus Rare H (None) /hpf Assessment and Plan Assessment: Acute COPD exacerbation, chest x-ray showing mostly chronic changes, hyperinflation consistent with COPD, and a chronic small right lower lobe pleural effusion Acute on chronic hypoxemic respiratory failure, secondary to above History of paroxysmal atrial fibrillation, chronically anticoagulated on Xarelto History of sick sinus syndrome status post biventricular pacemaker History of hyperlipidemia History of chronic tobacco dependence, last cigarette approximately 2 weeks ago Plan: The patient was seen and evaluated Labs and medications reviewed Stable and on 2 L nasal cannula Anxious to go home Continue Symbicort, albuterol HFA Transition to prednisone Educated regarding smoking cessation NicoDerm patch in place Cleared for discharge from the pulmonary standpoint Keep her appointment with Dr. Rodriguez in our office I have personally seen and examined the patient, performed the documentation and the assessment and plan as written. Number of minutes spent on the visit: 10.
--- NOTE | 2023-10-29 12:41 | P.CRDCN ---
History of Present Illness History of present illness: HISTORY OF PRESENT ILLNESS: This is a 73-year-old female with a past medical history significant for mild CAD, hypertension, hyperlipidemia, atrial fibrillation, biventricular pacemaker, and carotid stenosis. Patient follows in the office with Dr. Dominguez. We have been asked to see the patient in consultation for tachycardia. Patient examined at the bedside. Patient is admitted to the hospital secondary to COPD exacerbation. Yesterday patient went into A-fib with RVR. She does report having palpitations yesterday. She denies any chest pain or pressure. She was given oral metoprolol and transferred to 3 S. She has since converted to sinus mechanism. This morning telemetry reveals paced rhythm. DIAGNOSTICS: - EKG reveals A-fib with RVR - Chest xray COPD changes with small effusion right lung base - Current home cardiac medications include metoprolol tartrate 75 mg twice a day, Aldactone 12.5 mg daily, Tikosyn 125 mcg daily, Lasix 40 mg daily, Lipitor 20 mg at night, Xarelto 20 mg at night - Most recent echocardiogram obtained in September 2021 revealing normal EF, moderate TR, moderate MR - Cardiac catheterization history: November 2017 revealing mild to moderate disease involving the proximal LAD appears to be in the range of 40% REVIEW OF SYSTEMS: At the time of my exam: CONSTITUTIONAL: Denies fever or chills. HEENT: Denies blurred vision, vision changes, or eye pain. Denies hemoptysis CARDIOVASCULAR: Denies chest pain. Denies orthopnea. Denies PND. Denies palpi tations RESPIRATORY: Denies shortness of breath. GASTROINTESTINAL: Denies abdominal pain. Denies nausea or vomiting. HEMATOLOGIC: Denies bleeding disorders. GENITOURINARY: Denies any blood in urine. SKIN: Denies pruitis. Denies rash. PHYSICAL EXAM: VITAL SIGNS: Reviewed. GENERAL: Well-developed in no acute distress. HEENT: Head is normocephalic. Pupils are equal, round. Sclerae anicteric. Mucous membranes of the mouth are moist. Neck supple. No JVD or thyromegaly LUNGS: Respirations even and unlabored. Lungs with expiratory wheezing noted HEART: Regular rate and rhythm. S1 and S2 heard. ABDOMEN: Soft. Nondistended. Nontender. EXTREMITIES: Normal range of motion. No clubbing or cyanosis. Peripheral pulses intact. No lower extremity edema NEUROLOGIC: Awake and alert. Oriented x 3. ASSESSMENT: Shortness of breath Acute COPD exacerbation Paroxysmal atrial fibrillation with RVR, currently maintaining sinus mechanism/paced rhythm Mild nonobstructive CAD Hypertension Hyperlipidemia History of biventricular pacemaker implantation History of carotid stenosis PLAN: Continue home cardiac medications Continue telemetry monitoring Patient is currently stable from a cardiac standpoint Discharge per medicine Patient to follow-up postdischarge with Dr. Dominguez Nurse practitioner note has been reviewed by physician. Signing provider agrees with the documented findings, assessment, and plan of care documented by LOBBY CONCIERGE as a scribe. Past Medical History Past Medical History: COPD, Osteoarthritis (OA) Additional Past Medical History / Comment(s): see Dr Crowell H&P, past HX diverticulitis, hx of colon polyps, hernia left side of abdomen History of Any Multi-Drug Resistant Organisms: None Reported Past Surgical History: Adenoidectomy, Bowel Resection, Cardiac Ablation, Cholecystectomy, Hernia Repair, Tonsillectomy, Tubal Ligation Additional Past Surgical History / Comment(s): colonoscopy, RAGINI CATARACTS, cardioversion, Pacemaker Biventricular 1600 Past Anesthesia/Blood Transfusion Reactions: No Reported Reaction Type of Cardiac Device: Biventricular Pacemaker Device Placement Date:: 2019 Past Psychological History: No Psychological Hx Reported Additional Psychological History / Comment(s): Pt resides alone with her dog. She has a nebulizer. She is independent. Smoking Status: Current every day smoker Past Alcohol Use History: None Reported Additional Past Alcohol Use History / Comment(s): quit smoking 04/06/18, smoked ABOUT 1 PACK PER WEEK. Past Drug Use History: None Reported - Past Family History Sister(s) Family Medical History: Cancer, Pulmonary Embolus Additional Family Medical History / Comment(s): Tongue cancer. Father Family Medical History: No Reported History Additional Family Medical History / Comment(s): Father was healthy Mother Family Medical History: No Reported History Additional Family Medical History / Comment(s): Mother was healthy Medications and Allergies Home Medications Medication Instructions Recorded Confirmed Type Atorvastatin [Lipitor] 20 mg PO HS 03/09/14 10/27/23 History Albuterol Nebulized [Ventolin 2.5 mg INHALATION RT-QID 03/15/16 10/27/23 History Nebulized] Rivaroxaban [Xarelto] 20 mg PO HS 04/07/18 10/27/23 History Spironolactone [Aldactone] 12.5 mg PO DAILY 04/07/18 10/27/23 History Dofetilide [Tikosyn] 125 mcg PO DAILY 12/02/18 10/27/23 History Metoprolol Tartrate [Lopressor] 75 mg PO BID 11/26/19 10/27/23 History Albuterol Inhaler [Ventolin Hfa 2 puff INHALATION RT-Q4H PRN 06/13/21 10/27/23 History Inhaler] Ipratropium Nebulized [Atrovent 0.5 mg INHALATION RT-QID 07/03/21 10/27/23 History Nebulized 0.2 MG/ML] Budesonide [Pulmicort] 0.5 mg INHALATION RT-BID 10/27/23 10/27/23 History Famotidine [Pepcid] 20 mg PO DAILY 10/27/23 10/27/23 History Furosemide [Lasix] 40 mg PO DAILY 10/27/23 10/27/23 History Allergies Allergy/AdvReac Type Severity Reaction Status Date / Time No Known Allergies Allergy Verified 10/27/23 11:45 Physical Exam Vitals: Vital Signs Temp Pulse Pulse Resp BP Pulse Ox 10/29/23 09:05 56 L 10/29/23 08:51 64 10/29/23 08:00 72 18 115/61 96 10/29/23 04:00 98.2 F 65 18 121/71 99 10/29/23 03:00 95 20 10/29/23 02:16 97.9 F 135 H 18 95/61 99 10/28/23 22:37 117 H 109/67 10/28/23 20:08 64 10/28/23 19:57 65 10/28/23 19:25 98.2 F 54 L 17 107/63 97 10/28/23 15:40 60 10/28/23 15:30 60 10/28/23 15:00 97.5 F L 62 17 108/57 90 L 10/28/23 12:04 64 10/28/23 11:54 64 Intake and Output 10/28/23 10/29/23 10/29/23 22:59 06:59 14:59 Intake Total 360 Balance 360 Intake: Oral 360 Other: Voiding Method Toilet Toilet Toilet # Voids 1 1 Weight 59.1 kg Results 10/29/23 07:49 10/29/23 07:49 Current Medications Generic Name Dose Route Start Last Admin Trade Name Freq PRN Reason Stop Dose Admin Albuterol/Ipratropium 3 ml 10/27/23 12:57 Ipratropium-Albuterol 3 Ml Neb INHALATION RT-Q2H PRN Shortness Of Breath Or Wheezing Albuterol/Ipratropium 3 ml 10/27/23 16:00 10/29/23 08:50 Ipratropium-Albuterol 3 Ml Neb INHALATION 3 ml RT-QID JESSICA Administration Atorvastatin Calcium 20 mg 10/27/23 21:00 10/28/23 20:17 Atorvastatin 20 Mg Tab PO 20 mg HS JESSICA Administration Benzonatate 100 mg 10/27/23 13:55 Benzonatate 100 Mg Cap PO TID PRN Cough Budesonide/Formoterol Fumarate 2 puff 10/27/23 20:00 10/29/23 08:50 Symbicort 160-4.5 Mcg Inhaler INHALATION 2 puff RT-BID JESSICA Administration Dofetilide 125 mcg 10/28/23 09:00 10/29/23 08:38 Dofetilide 125 Mcg Cap PO 125 mcg DAILY JESSICA Administration Famotidine 20 mg 10/28/23 09:00 10/29/23 08:38 Famotidine 20 Mg Tab PO 20 mg DAILY JESSICA Administration Furosemide 40 mg 10/28/23 09:00 10/29/23 08:38 Furosemide 40 Mg Tab PO 40 mg DAILY JESSICA Administration Guaifenesin 600 mg 10/27/23 21:00 10/29/23 08:38 Guaifenesin 600 Mg Tablet.Er PO 600 mg Q12HR JESSICA Administration Metoprolol Tartrate 75 mg 10/27/23 21:00 10/29/23 08:38 Metoprolol Tartrate 50 Mg Tab PO 75 mg BID JESSICA Administration Naloxone HCl 0.2 mg 10/27/23 13:55 Naloxone 0.4 Mg/Ml 1 Ml Vial IVP Q2M PRN Opioid Reversal Nicotine 1 patch 10/27/23 14:00 10/29/23 08:37 Nicotine 21mg/24hr Patch TRANSDERM Not Given DAILY JESSICA Prednisone 40 mg 10/30/23 09:00 Prednisone 20 Mg Tab PO DAILY JESSICA Rivaroxaban 15 mg 10/27/23 21:00 10/28/23 20:16 Rivaroxaban 15 Mg Tab PO 15 mg HS JESSICA Administration Protocol Spironolactone 12.5 mg 10/28/23 09:00 10/29/23 08:38 Spironolactone 25 Mg Tab PO 12.5 mg DAILY JESSICA Administration Intake and Output 10/28/23 10/29/23 10/29/23 22:59 06:59 14:59 Intake Total 360 Balance 360 Intake: Oral 360 Other: Voiding Method Toilet Toilet Toilet # Voids 1 1 Weight 59.1 kg 10/27/23 11:26 10/27/23 11:26
--- NOTE | 2023-10-29 13:04 | P.DS ---
Providers Date of admission: 10/27/23 13:15 Expected date of discharge: 10/29/23 Attending physician: Vel Arita MD Consults: 10/27/23 12:59 Consult Physician Urgent Consulting Provider: Anthony Hernandez Consult Reason/Comments: COPD exacerbation Do you want consulting provider notified?: Yes 10/29/23 01:47 Consult Physician Urgent Consulting Provider: Robert Dominguez Consult Reason/Comments: high heart rate, palpitations Do you want consulting provider notified?: Yes, Notify in am Primary care physician: Perry Choudhuryqvi Hospital Course: Discharge diagnoses; Acute COPD exacerbation Chronic hypoxemic respiratory failure Hyperlipidemia Atrial fibrillation with RVR, resolved Hypertension Hospital course; patient is a 73-year-old lady with past medical history sniffing and for COPD, chronic hypoxemic respiratory failure who presented to the ER because of worsening shortness of breath. Patient states that she was all right 1 week back when he started noticing that she was getting increasingly short of breath on exertion. Patient is complaining of wheezing. Denies any chest pain. There was no complaint of fever or chills. Denies any productive cough. There was no complaint of orthopnea or PND. Patient was complaining of swelling of lower extremities. Because of his worsening shortness of breath, patient came to the ER Initial lab work done in the ER showed WBC 6.8, hemoglobin 12.1, platelet count 264, INR 1.4, sodium 139, potassium 3.8, BUN 18, creatinine 0.96, glucose 81, bilirubin 2.8, EKG done in the ER showed heart rate of 58, electronic pacemaker, no ST segment elevation or depression seen, no T-wave inversions seen. Chest x-ray done in the ER showed COPD changes with small effusion right lung base Patient admitted to internal medicine service 10/27. Patient seen and examined. States breathing is improved. Complaining of increased burning and odor in urine. UA done was negative for infection. 10/28. Patient seen and examined. Patient had a episode of A-fib with RVR overnight, currently patient is rate controlled. Cardiology evaluated patient, recommended keeping patient on current cardiac medications. Pulmonology cleared the patient for discharge on tapering dose of prednisone. PHYSICAL EXAMINATION: GENERAL: The patient is alert and oriented x3, not in any acute distress. Well developed, well nourished. HEENT: Pupils are round and equally reacting to light. EOMI. No scleral icterus. No conjunctival pallor. Normocephalic, atraumatic. No pharyngeal erythema. No thyromegaly. CARDIOVASCULAR: S1 and S2 present. No murmurs, rubs, or gallops. PULMONARY: Chest is clear to auscultation, no wheezing or crackles. ABDOMEN: Soft, nontender, nondistended, normoactive bowel sounds. No palpable organomegaly. MUSCULOSKELETAL: No joint swelling or deformity. EXTREMITIES: No cyanosis, clubbing, or pedal edema. NEUROLOGICAL: Gross neurological examination did not reveal any focal deficits. SKIN: No rashes. Dictation was produced using [employer] dictation software. please excuse any grammatical, word or spelling errors. Patient Condition at Discharge: Good Plan - Discharge Summary Discharge Rx Participant: No New Discharge Prescriptions: New predniSONE 10 mg PO DAILY 8 Days #20 tab Continue Atorvastatin [Lipitor] 20 mg PO HS Albuterol Nebulized [Ventolin Nebulized] 2.5 mg INHALATION RT-QID Rivaroxaban [Xarelto] 20 mg PO HS Spironolactone [Aldactone] 12.5 mg PO DAILY Dofetilide [Tikosyn] 125 mcg PO DAILY Metoprolol Tartrate [Lopressor] 75 mg PO BID Albuterol Inhaler [Ventolin Hfa Inhaler] 2 puff INHALATION RT-Q4H PRN PRN Reason: Shortness Of Breath Famotidine [Pepcid] 20 mg PO DAILY Ipratropium Nebulized [Atrovent Nebulized 0.2 MG/ML] 0.5 mg INHALATION RT-QID Budesonide [Pulmicort] 0.5 mg INHALATION RT-BID Furosemide [Lasix] 40 mg PO DAILY Discharge Medication List Atorvastatin [Lipitor] 20 mg PO HS 03/09/14 [History] Albuterol Nebulized [Ventolin Nebulized] 2.5 mg INHALATION RT-QID 03/15/16 [History] Rivaroxaban [Xarelto] 20 mg PO HS 04/07/18 [History] Spironolactone [Aldactone] 12.5 mg PO DAILY 04/07/18 [History] Dofetilide [Tikosyn] 125 mcg PO DAILY 12/02/18 [History] Metoprolol Tartrate [Lopressor] 75 mg PO BID 11/26/19 [History] Albuterol Inhaler [Ventolin Hfa Inhaler] 2 puff INHALATION RT-Q4H PRN 06/13/21 [History] Ipratropium Nebulized [Atrovent Nebulized 0.2 MG/ML] 0.5 mg INHALATION RT-QID 07/03/21 [History] Budesonide [Pulmicort] 0.5 mg INHALATION RT-BID 10/27/23 [History] Famotidine [Pepcid] 20 mg PO DAILY 10/27/23 [History] Furosemide [Lasix] 40 mg PO DAILY 10/27/23 [History] predniSONE 10 mg PO DAILY 8 Days #20 tab 10/29/23 [Rx] Follow up Appointment(s)/Referral(s): Perry Reardon MD [Primary Care Provider] - 1-2 days Lyla Rodriguez MD [STAFF PHYSICIAN] - 1 Week Discharge Disposition: HOME SELF-CARE
[2023-10-29] MEDS: RIVAROXABAN 20 MG TAB PO SCH (20:49)
[2023-10-30] MEDS: IPRATROPIUM-ALBUTEROL 3 ML NEB INHALATION PRN (02:50)
[2023-10-30] MEDS: predniSONE 20 MG TAB PO SCH (08:25)
[2023-10-30 08:31] VITALS: RESP 20; TEMP 98
--- NOTE | 2023-10-30 11:54 | P.PN ---
Subjective Progress Note Date: 10/30/23 Patient is a 73-year-old white female with past medical history significant for severe COPD, paroxysmal atrial fibrillation, SSS status/post biventricular permanent pacemaker, hypertension, hyperlipidemia, and tobacco dependence. Patient does follow in the pulmonary office with Dr. Rodriguez for management of her severe COPD. She has an FEV1 32% of predicted. States her last cigarette was approximately 2 weeks ago. Prior to that she smoked 1/2 pack/day for most of her life. She does have home O2 available at home, normally maintained on 2 L/min nasal cannula, but over the last week she has increased to 3 L/min nasal cannula. She is normally maintained on a combination of budesonide inhalations, DuoNebs [id number], and as needed albuterol HFA inhaler. She was recently treated on outpatient basis for an acute COPD exacerbation. She was given a Depo-Medrol shot, prednisone burst taper, and 10-day course of Augmentin. She states that she initially noted some substantial improvement with this treatment. She was also given a trial of Trelegy inhaler for 2 weeks, but has since ran out. Over the last 2 to 3 weeks, her breathing has worsened. She is complaining of worsening exertional dyspnea. Associated intermittent wheezing and chest congestion. She has a persistent cough with occasional clear to yellow sputum production. Denies any hemoptysis. Denies any fevers. Denies any chest pain. Denies any sick contacts. She lives alone. He is also noted some right lower ankle/foot swelling. This is new over the last week. Denies trauma or tenderness. She is chronically anticoagulated on Xarelto for her atrial fibrillation. Does have family history of DVTs, but no personal history. Denies any chest pain, heart palpitations, or syncopal events. CBC unremarkable. No leukocytosis. CMP: Sodium 139, potassium 3.8, chloride 101, serum bicarb 34, BUN 18, creatinine 0.96, glucose 281. Lactic acid 1.6. LFTs unremarkable. Troponin 0.014. NT proBNP 1690. EKG showing regular rhythm and dual pacing. Patient is currently sitting at the edge of the bed, on 3 L/min nasal cannula, in no acute distress while at rest. Chest x-ray showing chronic changes and a small chronic right lower lobe pleural effusion. I do not see any remarkable infiltrates or evidence of pneumonia. She is afebrile. Vital signs are stable. The patient is seen today October 29, 2023 in follow-up on the active care unit. She is up ambulating in her room. Awake and alert in no acute distress. M aintaining O2 saturations in the 90s on 2 L/min per nasal cannula. Venous Doppler of the right lower extremity revealed no evidence of DVT. White count 13.6. Hemoglobin 10.6. Platelets 212. Sodium 140. Potassium 3.9. Bicarb 28. BUN 16. Creatinine 0.9. Glucose 128. Procalcitonin was 0.04. Antibiotics discontinued. She is continued on DuoNeb inhalations, Symbicort, Solu-Medrol. NicoDerm patch in place. Remains on oral diuretics. Patient was seen today October 30, 2023. She is resting comfortably in a chair awake, alert and in no acute distress. She denies any chest pain, shortness of breath, or chest tightness. She is satting well on 3 L per nasal cannula. No new labs today. She is on DuoNebs, Symbicort, and prednisone. She will be discharged today pending oxygen delivery. Objective - Vital Signs Vital signs: Vital Signs Temp 98.0 F 10/30/23 08:18 Pulse 56 L 10/30/23 08:55 Resp 20 10/30/23 08:18 BP 92/66 10/30/23 08:18 Pulse Ox 95 10/30/23 08:18 FiO2 Intake & Output 10/29/23 10/30/23 10/30/23 18:59 06:59 18:59 Intake Total 720 540 100 Balance 720 540 100 Weight 59.2 kg Intake: Oral 720 540 100 Other: Voiding Method Toilet Toilet Toilet # Voids 2 1 - Exam GENERAL EXAM: Alert, active, pleasant 73-year-old female, on 2 L nasal cannula, comfortable in no apparent distress. HEAD: Normocephalic. EYES: Normal reaction of pupils, equal size. NOSE: Clear with pink turbinates. THROAT: No erythema or exudates. NECK: No masses, no JVD. CHEST: No chest wall deformity. LUNGS: Equal air entry with end expiratory wheeze, diminished. CVS: S1 and S2 normal with no audible murmur, regular rhythm. ABDOMEN: No hepatosplenomegaly, normal bowel sounds, no guarding or rigidity. SPINE: No scoliosis or deformity SKIN: No rashes CENTRAL NERVOUS SYSTEM: No focal deficits, tone is normal in all 4 extremities. EXTREMITIES: There is 1+ peripheral edema right greater than left. No clubbing, no cyanosis. Peripheral pulses are intact. - Labs CBC & Chem 7: 10/29/23 07:49 10/29/23 07:49 Assessment and Plan Assessment: Acute COPD exacerbation Acute on chronic hypoxemic respiratory failure History of paroxysmal atrial fibrillation, chronically anticoagulated on Xarelto History of sick sinus syndrome status post biventricular pacemaker History of hyperlipidemia History of chronic tobacco dependence, last cigarette approximately 2 weeks ago Plan: Patient seen and evaluated Labs and medications reviewed Patient remains comfortable on 3 L Patient will be discharged today pending oxygen delivery Follow-up with Dr. Rodriguez outpatient Time with Patient: Less than 30
[2023-10-30 12:07] VITALS: BP 117/72; PULSE 56
--- NOTE | 2023-10-30 12:19 | P.PN ---
Subjective Progress Note Date: 10/30/23 patient is a 73-year-old lady with past medical history sniffing and for COPD, chronic hypoxemic respiratory failure who presented to the ER because of worsening shortness of breath. Patient states that she was all right 1 week back when he started noticing that she was getting increasingly short of breath on exertion. Patient is complaining of wheezing. Denies any chest pain. There was no complaint of fever or chills. Denies any productive cough. There was no complaint of orthopnea or PND. Patient was complaining of swelling of lower extremities. Because of his worsening shortness of breath, patient came to the ER Initial lab work done in the ER showed WBC 6.8, hemoglobin 12.1, platelet count 264, INR 1.4, sodium 139, potassium 3.8, BUN 18, creatinine 0.96, glucose 81, bilirubin 2.8, EKG done in the ER showed heart rate of 58, electronic pacemaker, no ST segment elevation or depression seen, no T-wave inversions seen. Chest x-ray done in the ER showed COPD changes with small effusion right lung base Patient admitted to internal medicine service 10/27. Patient seen and examined. States breathing is improved. Complaining of increased burning and odor in urine 10/29. Patient seen and examined. Patient being discharged on oxygen. Patient was 84% on room air, requiring 3 L of oxygen, patient qualifies for home O2 secondary to COPD REVIEW OF SYSTEMS: CONSTITUTIONAL: No fever, no malaise,. CARDIOVASCULAR: No chest pain, no palpitations, no syncope. PULMONARY: No shortness of breath, no cough, GASTROINTESTINAL: No diarrhea, no nausea, no vomiting, no abdominal pain. NEUROLOGICAL: No headaches, no weakness, PHYSICAL EXAMINATION: GENERAL: The patient is alert and oriented x3, not in any acute distress. Well developed, well nourished. HEENT: Pupils are round and equally reacting to light. EOMI. No scleral icterus. No conjunctival pallor. Normocephalic, atraumatic. No pharyngeal erythema. No thyromegaly. CARDIOVASCULAR: S1 and S2 present. No murmurs, rubs, or gallops. PULMONARY: Chest is clear to auscultation, no wheezing or crackles. ABDOMEN: Soft, nontender, nondistended, normoactive bowel sounds. No palpable organomegaly. MUSCULOSKELETAL: No joint swelling or deformity. EXTREMITIES: No cyanosis, clubbing, or pedal edema. NEUROLOGICAL: Gross neurological examination did not reveal any focal deficits. SKIN: No rashes. Assessment and plan Acute COPD exacerbation Chronic hypoxemic respiratory failure Hyperlipidemia Atrial fibrillation Hypertension Monitor vital signs Monitor CBC Monitor CMP Continue ox supplementation Being discharged on tapering dose of prednisone Labs and medication were reviewed.. Continue same treatment. Continue with symptomatic treatment. Resume home medication. Monitor labs and vitals. DVT and GI prophylaxis. Further recommendations as per clinical course of the patient Dictation was produced using [employer] dictation software. please excuse any grammatical, word or spelling errors. Objective - Vital Signs Vital signs: Vital Signs Temp 98.0 F 10/30/23 08:18 Pulse 52 L 10/30/23 11:58 Resp 20 10/30/23 11:20 BP 117/72 10/30/23 11:20 Pulse Ox 96 10/30/23 11:20 FiO2 Intake & Output 10/29/23 10/30/23 10/30/23 18:59 06:59 18:59 Intake Total 720 540 100 Balance 720 540 100 Weight 59.2 kg Intake: Oral 720 540 100 Other: Voiding Method Toilet Toilet Toilet # Voids 2 1 - Labs CBC & Chem 7: 10/29/23 07:49 10/29/23 07:49
--- NOTE | 2023-10-30 12:45 | P.PN ---
Subjective HISTORY OF PRESENT ILLNESS: This is a 73-year-old female with a past medical history significant for mild CAD, hypertension, hyperlipidemia, atrial fibrillation, biventricular pacemaker, and carotid stenosis. Patient follows in the office with Dr. Dominguez. We have been asked to see the patient in consultation for tachycardia. Patient examined at the bedside. Patient is admitted to the hospital secondary to COPD exacerbation. Yesterday patient went into A-fib with RVR. She does report having palpitations yesterday. She denies any chest pain or pressure. She was given oral metoprolol and transferred to 3 . She has since converted to sinus mechanism. This morning telemetry reveals paced rhythm. DIAGNOSTICS: - EKG reveals A-fib with RVR - Chest xray COPD changes with small effusion right lung base - Current home cardiac medications include metoprolol tartrate 75 mg twice a day, Aldactone 12.5 mg daily, Tikosyn 125 mcg daily, Lasix 40 mg daily, Lipitor 20 mg at night, Xarelto 20 mg at night - Most recent echocardiogram obtained in September 2021 revealing normal EF, moderate TR, moderate MR - Cardiac catheterization history: November 2017 revealing mild to moderate disease involving the proximal LAD appears to be in the range of 40% 10/30/2023 Patient examined this morning at bedside. Patient currently denies chest pain or pressure. She denies shortness of breath. Vital signs are stable. Patient is pending discharge home today. PHYSICAL EXAM: VITAL SIGNS: Reviewed. GENERAL: Well-developed in no acute distress. HEENT: Head is normocephalic. Pupils are equal, round. Sclerae anicteric. Mucous membranes of the mouth are moist. Neck supple. No JVD or thyromegaly LUNGS: Respirations even and unlabored. Lungs with expiratory wheezing noted HEART: Regular rate and rhythm. S1 and S2 heard. ABDOMEN: Soft. Nondistended. Nontender. EXTREMITIES: Normal range of motion. No clubbing or cyanosis. Peripheral pulses intact. No lower extremity edema NEUROLOGIC: Awake and alert. Oriented x 3. ASSESSMENT: Shortness of breath Acute COPD exacerbation Paroxysmal atrial fibrillation with RVR, currently maintaining sinus mech anism/paced rhythm Mild nonobstructive CAD Hypertension Hyperlipidemia History of biventricular pacemaker implantation History of carotid stenosis PLAN: Continue home cardiac medications Continue telemetry monitoring Patient is currently stable from a cardiac standpoint Discharge per medicine Patient to follow-up postdischarge with Dr. Dominguez Nurse practitioner note has been reviewed by physician. Signing provider agrees with the documented findings, assessment, and plan of care documented by POLE FRAMER as a scribe. Objective - Vital Signs Vital signs: Vital Signs Temp 98.0 F 10/30/23 08:18 Pulse 52 L 10/30/23 11:58 Resp 20 10/30/23 11:20 BP 117/72 10/30/23 11:20 Pulse Ox 96 10/30/23 11:20 FiO2 Intake & Output 10/29/23 10/30/23 10/30/23 18:59 06:59 18:59 Intake Total 720 540 100 Balance 720 540 100 Weight 59.2 kg Intake: Oral 720 540 100 Other: Voiding Method Toilet Toilet Toilet # Voids 2 1 - Labs CBC & Chem 7: 10/29/23 07:49 10/29/23 07:49
--- NOTE | 2023-10-30 14:09 | P.PN ---
Progress Note - Text Progress Note Date: 10/30/23 Patient was noted to be 84% on room air while at rest. Patient is currently requiring 3 L of oxygen via nasal cannula and will require oxygen on discharge to manage COPD. The impression and plan of care has been dictated by Erin yBrnes, Nurse Practitioner as directed. Dr. Vel Arita MD I have performed a history and examination and MDM of this patient, discussed the same with the dictator, and agree with the dictator's assessment and plan as written ,documented as a scribe. Based on total visit time, I have performed more than 50% of the visit.
== END 2023-10-30 15:13 | disposition home or self-care (01) ==
LOC: EC 10:45 → 6NMEDSUR 13:15 → 3SCARD 10-29 02:50
PROVIDERS: ADMIT Internal Medicine; ATTEND Internal Medicine
DX: J44.1 Chronic obstructive pulmonary disease with (acute) exacerbation (principal); J96.11 Chronic respiratory failure with hypoxia; I10 Essential (primary) hypertension; F17.200 Nicotine dependence, unspecified, uncomplicated; E78.5 Hyperlipidemia, unspecified; J90 Pleural effusion, not elsewhere classified; I48.0 Paroxysmal atrial fibrillation; I49.5 Sick sinus syndrome; I25.10 Atherosclerotic heart disease of native coronary artery without angina pectoris; M19.90 Unspecified osteoarthritis, unspecified site; M79.89 Other specified soft tissue disorders; Z95.0 Presence of cardiac pacemaker; Z87.19 Personal history of other diseases of the digestive system; Z80.8 Family history of malignant neoplasm of other organs or systems; Z79.899 Other long term (current) drug therapy; Z79.01 Long term (current) use of anticoagulants
CPT/HCPCS: 96376 ×3; 96361; 96374; 99285; 36415; 94640 ×7; 93005 ×2; 83880; 80053 ×2; 83605; 83735; 84484; 85025 ×2; 85610; 85730; 81001; 84145; 71046; 93971; G0378 ×5; J7512; J2919 ×3

== ENCOUNTER 2024-07-01 15:20 | Emergency (ER) | payer MEDICARE, OTHER ==
[2024-07-01] MEDS: OXYMETAZOLINE 0.05% NASL SPRAY 1 SPRAY BOTTLE NASAL STA (16:00)
[2024-07-01 16:15] LABS: Anisocytosis Slight; Basophils % (A) 0 %; Eosinophils % (A) 0 %; HCT 30.6 % (34.0-46.0); HGB 10.3 gm/dL (11.4-16.0); Hypochromasia Slight; Lymphocytes # (A) 0.6 k/uL (1.0-4.8); Lymphocytes % (A) 8 %; MCH 30.7 pg (25.0-35.0); MCHC 33.7 g/dL (31.0-37.0); MCV 91.2 fL (80.0-100.0); Mean Platelet Volume 8.4; Monocytes # (A) 0.2 k/uL (0-1.0); Monocytes % (A) 2 %; Neutrophils # (A) 7.1 k/uL (1.3-7.7); Neutrophils % (A) 89 %; Platelet Count 201 k/uL (150-450); Poikilocytosis Moderate; RBC 3.35 m/uL (3.80-5.40)
--- NOTE | 2024-07-01 16:45 | ED ---
ENT HPI - General Chief complaint: ENT Stated complaint: bloody nose on thinners Time Seen by Provider: 07/01/24 16:42 Source: patient, RN notes reviewed Mode of arrival: ambulatory Limitations: no limitations - History of Present Illness Initial comments: 74-year-old female on Xarelto presenting for epistaxis. States she had a bloody nose on the left side that started last night. States it bled all night and coughed up a clot. States she believes it clotted this morning and is no longer having active bleeding. She states there is a large clot in her nose and is having trouble breathing as she is on oxygen at home for her COPD. - Related Data Home Medications Medication Instructions Recorded Confirmed Atorvastatin [Lipitor] 20 mg PO HS 03/09/14 10/27/23 Albuterol Nebulized [Ventolin 2.5 mg INHALATION RT-QID 03/15/16 10/27/23 Nebulized] Rivaroxaban [Xarelto] 20 mg PO HS 04/07/18 10/27/23 Spironolactone [Aldactone] 12.5 mg PO DAILY 04/07/18 10/27/23 Dofetilide [Tikosyn] 125 mcg PO DAILY 12/02/18 10/27/23 Metoprolol Tartrate [Lopressor] 75 mg PO BID 11/26/19 10/27/23 Albuterol Inhaler [Ventolin Hfa 2 puff INHALATION RT-Q4H PRN 06/13/21 10/27/23 Inhaler] Ipratropium Nebulized [Atrovent 0.5 mg INHALATION RT-QID 07/03/21 10/27/23 Nebulized 0.2 MG/ML] Budesonide [Pulmicort] 0.5 mg INHALATION RT-BID 10/27/23 10/27/23 Famotidine [Pepcid] 20 mg PO DAILY 10/27/23 10/27/23 Furosemide [Lasix] 40 mg PO DAILY 10/27/23 10/27/23 Previous Rx's Medication Instructions Recorded predniSONE 10 mg PO DAILY 8 Days #20 tab 10/29/23 Allergies Allergy/AdvReac Type Severity Reaction Status Date / Time No Known Allergies Allergy Verified 07/01/24 15:34 Review of Systems ROS Statement: Those systems with pertinent positive or pertinent negative responses have been documented in the HPI. ROS Other: All systems not noted in ROS Statement are negative. Past Medical History Past Medical History: COPD, Osteoarthritis (OA) Additional Past Medical History / Comment(s): see Dr Socrates Ken&P, past HX diverticulitis, hx of colon polyps, hernia left side of abdomen History of Any Multi-Drug Resistant Organisms: None Reported Past Surgical History: Adenoidectomy, Bowel Resection, Cardiac Ablation, Cholecystectomy, Hernia Repair, Tonsillectomy, Tubal Ligation Additional Past Surgical History / Comment(s): colonoscopy, RAGINI CATARACTS, cardioversion, Pacemaker Biventricular 1600 Past Anesthesia/Blood Transfusion Reactions: No Reported Reaction Type of Cardiac Device: Biventricular Pacemaker Device Placement Date:: 2019 Past Psychological History: No Psychological Hx Reported Smoking Status: Current every day smoker Past Alcohol Use History: None Reported Past Drug Use History: None Reported - Past Family History Sister(s) Family Medical History: Cancer, Pulmonary Embolus Additional Family Medical History / Comment(s): Tongue cancer. Father Family Medical History: No Reported History Additional Family Medical History / Comment(s): Father was healthy Mother Family Medical History: No Reported History Additional Family Medical History / Comment(s): Mother was healthy General Exam Limitations: no limitations General appearance: alert, in no apparent distress Head exam: Present: atraumatic, normocephalic, normal inspection Eye exam: Present: normal appearance, PERRL, EOMI. Absent: scleral icterus, conjunctival injection, periorbital swelling ENT exam: Present: mucous membranes moist, other (There is a large, firm blood clot present in the left nostril) Neck exam: Present: normal inspection. Absent: tenderness, meningismus, lymphadenopathy Respiratory exam: Present: normal lung sounds bilaterally. Absent: respiratory distress, wheezes, rales, rhonchi, stridor Cardiovascular Exam: Present: regular rate, normal rhythm, normal heart sounds. Absent: systolic murmur, diastolic murmur, rubs, gallop, clicks Neurological exam: Present: alert, oriented X3 Psychiatric exam: Present: normal affect, normal mood Skin exam: Present: warm, dry, intact, normal color. Absent: rash Course Vital Signs 07/01/24 07/01/24 07/01/24 15:22 15:44 15:45 Temperature 97.9 F Pulse Rate 93 95 96 Respiratory 19 20 Rate Blood Pressure 94/59 145/60 O2 Sat by Pulse 89 L 94 L Oximetry Fraction of Inspired Oxygen (FIO2) 07/01/24 07/01/24 16:41 18:34 Temperature 98.0 F Pulse Rate 86 Respiratory 22 Rate Blood Pressure 121/70 O2 Sat by Pulse 95 Oximetry Fraction of 28 Inspired Oxygen (FIO2) Medical Decision Making - Medical Decision Making Was pt. sent in by a medical professional or institution (, SEAN, COMPLAINT INSPECTOR, urgent care, hospital, or care home...) When possible be specific @ -No Did you speak to anyone other than the patient for history (EMS, parent, family, police, friend...)? What history was obtained from this source @ -No Did you review nursing and triage notes (agree or disagree)? Why? @ -I reviewed and agree with nursing and triage notes Were old charts reviewed (outside hosp., previous admission, EMS record, old EKG, old radiological studies, urgent care reports/EKG's, care home records)? Report findings @ -No old charts were reviewed Differential Diagnosis (chest pain, altered mental status, abdominal pain women, abdominal pain men, vaginal bleeding, weakness, fever, dyspnea, syncope, headache, dizziness, GI bleed, back pain, seizure, CVA, palpatations, mental health, musculoskeletal)? @ -Not applicable EKG interpreted by me (3pts min.). @ -None X-rays interpreted by me (1pt min.). @ -None done CT interpreted by me (1pt min.). @ -None done U/S interpreted by me (1pt. min.). @ -None done What testing was considered but not performed or refused? (CT, X-rays, U/S, labs)? Why? @ -Recommended bladder scan due to decreased kidney function however patient refuses What meds were considered but not given or refused? Why? @ -None Did you discuss the management of the patient with other professionals (professionals i.e. SEAN Ace, COMPLAINT INSPECTOR, lab, RT, psych nurse, social services, kraft mill operator, teacher, railway patrol officer, outsole caser)? Give summary @ -No Was smoking cessation discussed for >3mins.? @ -No Was critical care preformed (if so, how long)? @ -No Were there social determinants of health that impacted care today? How? (Homelessness, low income, unemployed, alcoholism, drug addiction, transportation, low edu. Level, literacy, decrease access to med. care, correction, rehab)? @ -No Was there de-escalation of care discussed even if they declined (Discuss DNR or withdrawal of care, Hospice)? DNR status @ -No What co-morbidities impacted this encounter? (DM, HTN, Smoking, COPD, CAD, Cancer, CVA, ARF, Chemo, Hep., AIDS, mental health diagnosis, sleep apnea, morbid obesity)? @ -None Was patient admitted / discharged? Hospital course, mention meds given and route, prescriptions, significant lab abnormalities, going to OR and other pertinent info. @ -Discharge. This is a 74-year-old female presenting for epistaxis x 1 day. States she had a left-sided nosebleed started last night and stopped this morning. Now she reports she has a blood clot in the left nostril that is obstructing and making it hard to breathe as she is on at home oxygen. Risk versus benefits of attempting to dislodge the clot discussed with patient and patient opts to remove the clot. We attempted to dislodge the clot using a curette, normal saline, and suction with no success. We then used warm, moist air and directed saline flush which successfully removed the clot. Afrin was applied prophylactically. There was no epistaxis at this time, patient reports significant improvement of symptoms and was requesting discharge. Discussed with patient that hemoglobin is stable at 10, however there is concern for kidney function as there is significant decrease from previous values. Patient denies any urinary symptoms or flank pain. Recommended bladder scan to rule out urinary retention due to decreased kidney function however patient refuses and states she will follow-up with her PCP about this and would like to be discharged. Case was discussed with my ED attending Dr. Morgan. Undiagnosed new problem with uncertain prognosis? @ -No Drug Therapy requiring intensive monitoring for toxicity (Heparin, Nitro, Insulin, Cardizem)? @ -No Were any procedures done? @ -No Diagnosis/symptom? @ -Epistaxis Acute, or Chronic, or Acute on Chronic? @ -Acute Uncomplicated (without systemic symptoms) or Complicated (systemic symptoms)? @ -Uncomplicated Side effects of treatment? @ -No Exacerbation, Progression, or Severe Exacerbation? @ -No Poses a threat to life or bodily function? How? (Chest pain, [place], [place], pneumonia, PE, COPD, DKA, ARF, appy, cholecystitis, CVA, Diverticulitis, Homicidal, Suicidal, threat to staff... and all critical care pts) @ -No - Lab Data Result diagrams: 07/01/24 16:03 07/01/24 16:03 Lab Results 07/01/24 07/01/24 Range/Units 16:03 16:03 WBC 8.0 (3.8-10.6) k/uL RBC 3.35 L (3.80-5.40) m/uL Hgb 10.3 L (11.4-16.0) gm/dL Hct 30.6 L (34.0-46.0) % MCV 91.2 (80.0-100.0) fL MCH 30.7 (25.0-35.0) pg MCHC 33.7 (31.0-37.0) g/dL RDW 17.0 H (11.5-15.5) % Plt Count 201 (150-450) k/uL MPV 8.4 Neutrophils % 89 % Lymphocytes % 8 % Monocytes % 2 % Eosinophils % 0 % Basophils % 0 % Neutrophils # 7.1 (1.3-7.7) k/uL Lymphocytes # 0.6 L (1.0-4.8) k/uL Monocytes # 0.2 (0-1.0) k/uL Eosinophils # 0.0 (0-0.7) k/uL Basophils # 0.0 (0-0.2) k/uL Hypochromasia Slight Poikilocytosis Moderate Anisocytosis Slight Sodium 135 L (137-145) mmol/L Potassium 4.0 (3.5-5.1) mmol/L Chloride 98 (98-107) mmol/L Carbon Dioxide 31 H (22-30) mmol/L Anion Gap 6 mmol/L BUN 44 H (7-17) mg/dL Creatinine 1.30 H (0.52-1.04) mg/dL Est GFR (CKD-EPI)AfAm 46 (>60 ml/min/1.73 sqM) Est GFR (CKD-EPI)NonAf 40 (>60 ml/min/1.73 sqM) Glucose 159 H (74-99) mg/dL Calcium 8.7 (8.4-10.2) mg/dL Total Bilirubin 2.7 H (0.2-1.3) mg/dL AST 23 (14-36) U/L ALT 11 (4-34) U/L Alkaline Phosphatase 51 (38-126) U/L Total Protein 5.9 L (6.3-8.2) g/dL Albumin 3.7 (3.5-5.0) g/dL Disposition Clinical Impression: Epistaxis Disposition: HOME SELF-CARE Condition: Stable Instructions (If sedation given, give patient instructions): Nosebleed (ED) Additional Instructions: Follow-up with Dr. Reardon as discussed. Please return to the Emergency Department if symptoms worsen or any other concerns. Is patient prescribed a controlled substance at d/c from ED?: No Referrals: Perry Reardon MD [Primary Care Provider] - 1-2 days Time of Disposition: 18:23
[2024-07-01 17:28] LABS: ALT 11 U/L (4-34); AST 23 U/L (14-36); African American GFR (CKD) 46 (>60 ml/min/1.73 sqM); Albumin 3.7 g/dL (3.5-5.0); Alkaline Phosphatase 51 U/L (38-126); Anion Gap 6 mmol/L; Blood Urea Nitrogen 44 mg/dL (7-17); Calcium 8.7 mg/dL (8.4-10.2); Carbon Dioxide 31 mmol/L (22-30); Chloride 98 mmol/L (98-107); Glucose 159 mg/dL (74-99); Non-African American GFR(CKD) 40 (>60 ml/min/1.73 sqM); Sodium 135 mmol/L (137-145); Total Bilirubin 2.7 mg/dL (0.2-1.3); Total Protein 5.9 g/dL (6.3-8.2)
[2024-07-01 18:36] VITALS: BP 121/70; PULSE 86; RESP 22; TEMP 98
== END 2024-07-01 18:52 | disposition home or self-care (01) ==
LOC: EC 15:20
DX: R04.0 Epistaxis (principal); F17.200 Nicotine dependence, unspecified, uncomplicated; Z79.01 Long term (current) use of anticoagulants
CPT/HCPCS: 36415; 80053; 85025; 99283